=== PATIENT | female | born 1960 | race Caucasian/White ===

== ENCOUNTER → 2019-06-15 11:42 | Outpatient (BNVA) | payer MEDICAID, SELFPAY | PROVIDERS: Family Provider Nurse Practitioner; PCP Nurse Practitioner; Visit Provider Nurse Practitioner Family | DX: E78.2 Mixed hyperlipidemia (principal); E03.8 Other specified hypothyroidism; E07.9 Disorder of thyroid, unspecified; F41.9 Anxiety disorder, unspecified; J44.9 Chronic obstructive pulmonary disease, unspecified; K62.89 Other specified diseases of anus and rectum; M47.816 Spondylosis without myelopathy or radiculopathy, lumbar region; E55.9 Vitamin D deficiency, unspecified; K21.9 Gastro-esophageal reflux disease without esophagitis; N90.5 Atrophy of vulva; L02.224 Furuncle of groin; M51.36 Other intervertebral disc degeneration, lumbar region; F32.9 Major depressive disorder, single episode, unspecified; B37.3 Candidiasis of vulva and vagina | CPT/HCPCS: 80053; 80061; 84443; 85025 ==

== ENCOUNTER 2019-10-14 11:10 | Inpatient (IN) | payer MEDICAID, SELFPAY ==
[2019-10-14] VITALS (24 sets, daily range): BP systolic 85–150; BP diastolic 54–96; PULSE 76–125; RESP 14–34; TEMP 36.5–37; O2SAT 99–100; BMI 20.1
--- NOTE | 2019-10-14 11:12 | W.ED.GIBLEED ---
HPI - GI Bleed General: Stated complaint: GI BLEED Time Seen by Provider: 10/14/19 11:11 [facility] ED PFSH: Medical History Adult onset hypothyroidism Anxiety and depression Atrophy, vulva Temi vaginitis Caries involving multiple surfaces of tooth COPD (chronic obstructive pulmonary disease) Degenerative disc disease, lumbar GERD (gastroesophageal reflux disease) Lumbar spondylosis Mixed hyperlipidemia Rectal irritation Use of cane as ambulatory aid Vitamin D insufficiency Surgical History H/O: hysterectomy History of cholecystectomy Family History Other Cancer Diabetes Hypertension Social History Smoking and tobacco status: current every day smoker Second hand smoke exposure: Yes Smoking risk assessment/counseling performed?: Yes Alcohol intake: unknown Desire information about alcohol rehabilitation?: No Counseling given: No Desire information about substance/drug rehabilitation?: No Counseling given: No Adopted: No Caregiver/support person: No Lives independently: Yes Marital status: Single service: No Current occupational status: disabled History of recent travel: No Current gender identity: Female Discharge Plan Discharge Prescriptions: No Action nystatin 100,000 unit/gram cream 1 applic TOPICAL TID 30 Days Qty: 30 RF: 5 hydrocortisone [Anusol-HC] 2.5 % cream with perineal applicator 1 applic SD BID PRN (Reason: hemorrhoids) 30 Days Qty: 30 RF: 5 albuterol sulfate [ProAir HFA] 90 mcg/actuation HFA aerosol inhaler 2 inh INHALATION Q6H PRN (Reason: shortness of breath or wheezing) Qty: 6.7 RF: 5 aspirin [Adult Low Dose Aspirin] 81 mg tablet,delayed release (DR/EC) 81 mg PO DAILY 30 Days Qty: 30 RF: 5 atorvastatin [Lipitor] 20 mg tablet 20 mg PO DAILY 30 Days Qty: 30 RF: 5 Symbicort 80-4.5 mcg/actuation HFA aerosol inhaler 2 inh INHALATION BID 30 Days Qty: 6.9 RF: 5 celecoxib [Celebrex] 200 mg capsule 200 mg PO BID 30 Days Qty: 60 RF: 5 cholecalciferol (vitamin D3) 1,250 mcg (50,000 unit) tablet 50,000 unit PO .twice monthly 30 Days Qty: 2 RF: 5 estradiol [Estrace] 0.01 % (0.1 mg/gram) cream 1 gm VAGINAL .twice weekly 30 Days Qty: 42.5 RF: 5 gabapentin 600 mg tablet 600 mg PO TID 30 Days Qty: 90 RF: 5 famotidine 40 mg tablet 40 mg PO DAILY 30 Days Qty: 30 RF: 5 sertraline [Zoloft] 100 mg tablet 100 mg PO DAILY 30 Days Qty: 30 RF: 5 trazodone 100 mg tablet 100 mg PO DAILY 30 Days Qty: 30 RF: 5 tizanidine 2 mg capsule 2 mg PO TID PRN (Reason: muscle spasticity) 30 Days Qty: 90 RF: 5 chlorhexidine gluconate [Peridex] 0.12 % mouthwash 15 ml BUCCAL BID Qty: 1500 RF: 2 levothyroxine 50 mcg tablet 50 mcg PO DAILY Qty: 30 RF: 2 penicillin V potassium 500 mg tablet 500 mg PO BID Qty: 20 RF: 0 Coding Level of Care Code ED Clerical Adjudicator for Chg Erin
--- NOTE | 2019-10-14 11:17 | XRR_ITS ---
PROCEDURE INFORMATION: Exam: XR Chest, 1 View Exam date and time: 10/14/2019 12:30 PM Age: 59 years old Clinical indication: Device placement; Other: Et and og placement; Additional info: AMS TECHNIQUE: Imaging protocol: XR of the chest Views: 1 view. COMPARISON: CR Chest 1 [place] [id number] 07/03/2018 3:49 PM FINDINGS: Tubes, catheters and devices: Endotracheal and feeding tubes. The endotracheal tube terminates 4.1 cm above the bimal. The feeding tube courses into the proximal stomach with distal tip not visualized. Lungs: Hyperinflation , interstitial prominence, and mild airspace disease. Pleural space: No significant pleural effusion. Heart/Mediastinum: No cardiomegaly. Diaphragm: Asymmetric elevation of the right hemidiaphragm. Bones/joints: Unremarkable. Soft tissues: Rightward rotation of the chest. XR/XR chest 1V portable [id number] IMPRESSION: 1. Endotracheal and feeding tubes. The endotracheal tube terminates 4.1 cm above the bimal. The feeding tube courses into the proximal stomach with distal tip not visualized. 2. Additional findings as described above.
--- NOTE | 2019-10-14 11:18 | ECG_ITS ---
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 Measurements Intervals [place] Rate: 124 P: 75 MA: 136 QRS: 64 QRSD: 82 T: 72 QT: 336 QTc: 484 Interpretive Statements SINUS TACHYCARDIA NONSPECIFIC ST & T-WAVE ABNORMALITY ABNORMAL RHYTHM ECG INTERPRETATION BASED ON A DEFAULT AGE OF 40 YEARS Compared to ECG 07/03/2018 16:03:26 T-wave abnormality now present Sinus rhythm no longer present Electronically Signed On 10-14-2019 21:07:15 CDT by Olegario Lagos M.D. [id number]
--- NOTE | 2019-10-14 11:24 | CT_ITS ---
WS: [id number] CT HEAD NONCONTRAST HISTORY: AMS TECHNIQUE: Contiguous axial imaging performed through the brain in 2.5 mm imaging. Bone and soft tiss ue windows. Sagittal and coronal reformats reviewed. All CT scans at [facility] use at le ast one of these dose optimization techniques: automated exposure control; mA and/or kV adjustment pe r patient size (includes targeted exams where dose is matched to clinical indication); or iterative r econstruction. DLP: 742.09 mGy.cm COMPARISON: 09/06/2016 No acute intracranial hemorrhage, midline shift or mass effect. Significant atrophy bilaterally. 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 Enc ephalomalacia at the areas of the prior infarcts. No new area of encephalomalacia. There is a small a mount of air at the skull base near the sella turcica of uncertain etiology. This may be intravenous air during injection or IV placement. Ventricles: Normal size with no hydrocephalus. Paranasal sinuses: Small mucous retention cyst LEFT maxillary sinus. Mastoid air cells: Well pneumatized. Calvarium and scalp: Skull is intact with no soft tissue edema or swelling. CT/CT head wo con* [id number] IMPRESSION: 1. 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 2. No acute infarct or blood. 3. Several foci of air near the skull base/sella turcica of uncertain etiology . No skull fractures are identified. This may be due to IV insertion with the c ontrast injection.
--- NOTE | 2019-10-14 11:36 | ED_ITS ---
HPI - Altered Mental Status General: Chief Complaint: Altered Mental Status Stated Complaint: GI BLEED Time Seen by Provider: 10/14/19 11:11 History of Present Illness: HPI narrative: This patient is a 59-year-old female brought in by ambulance. Apparently she called the ambulance for shortness of breath and when they arrived they found her poorly responsive, with bloody emesis and black stool all over her. She was transported to the emergency department with blood pressures in the 70s to 80s systolic. She is awake but not responsive to any stimuli. She is staring, blinking, no gaze deviation. She is pale and covered in feces and emesis. No further history is available. MD complaint: altered mental status and decreased responsiveness Onset (ago): unknown Severity: severe Context: unknown Review of Systems General: Reports: ROS unobtainable due to mental status PFSH ED PFSH: Medical History Adult onset hypothyroidism Anxiety and depression Atrophy, vulva Temi vaginitis Caries involving multiple surfaces of tooth COPD (chronic obstructive pulmonary disease) Degenerative disc disease, lumbar GERD (gastroesophageal reflux disease) Lumbar spondylosis Mixed hyperlipidemia Rectal irritation Use of cane as ambulatory aid Vitamin D insufficiency Surgical History H/O: hysterectomy History of cholecystectomy Family History Other Cancer Diabetes Hypertension Social History Smoking and tobacco status: current every day smoker Second hand smoke exposure: Yes Smoking risk assessment/counseling performed?: Yes Alcohol intake: current Alcohol intake frequency: 0-2 Drinks per Day Alcohol ty pe: hard liquor Desire information about alcohol rehabilitation?: No Counseling given: No Substance/Drug Use: unknown Desire information about substance/drug rehabilitation?: No Counseling given: No Adopted: No Caregiver/support person: No Lives independently: Yes Marital status: Single service: No Current occupational status: disabled History of recent travel: No Current gender identity: Female Physical Exam Const: GENERAL APPEARANCE: frail appearing ORIENTATION/CONSCIOUSNESS: Yes patient obtunded HENMT: HEAD & SCALP: normal to inspection FACE & SINUS: normal facial exam Eye: GENERAL EYE: appearance normal, both eyes and all related structures Neck/C-Spine: COMMON NORMALS: supple, no meningeal signs and no JVD Chest: COMMONS NORMALS: normal inspection of the chest Resp: COMMON NORMALS: normal respiratory effort, No use of accessory muscles and clear to auscultation bilaterally AUSCULTATION: clear to auscultation bilaterally Cardio: COMMON NORMALS: no JVD, regular rate, regular rhythm and No murmurs present (Cardio) RATE: regular rate RHYTHM: regular rhythm GI: COMMON NORMALS: Normal to inspection, nondistended, normoactive bowel sounds present, Soft to palpation and non-tender INSPECTION: Yes normal to in spection AUSCULTATION: Yes normoactive bowel sounds PALPATION: Yes Soft to palpation Back/Pelvis: COMMON NORMALS: thoracic and lumbar spine normal to inspection Extremity: COMMON NORMALS: normal to inspection Neuro: COMMON NORMALS: moves all extremities, no focal motor deficits and no sensory deficits noted MENINGEAL SIGNS: Yes no meningeal signs Psych: ACTIVITY/MOTOR BEHAVIOR: Yes other (Catatonic) Skin: COMMON NORMALS: no rashes or lesions noted GENERAL SKIN EXAM: no rashes or lesions noted and other (Pale, covered in feces and emesis) Procedures Central Line Placement Right IJ: Time Out Performed: Yes Patient Placed on Monitor/Pulse Ox: Yes MD Prep: mask, gown and gloves Central Line Prep: Chlorhexidine scrub Ultrasound Used for Placement: Yes Central Line Lumen Inserted: triple Post Procedure: sutured in place (kit was missing part of the clip and so the catheter was wrapped with suture and tied off), all ports aspirated, flushed, capped and sterile dressing applied Post Procedure X-Ray: tip of catheter in good position and no pneumothorax seen Patient Tolerated Procedure: well Complications: none Intubation Time out performed: Yes sedative: Etomidate paralytic: Succinylcholine Laryngoscope: fiber optic video scope ET Tube Size: 7.5 ET Tube Uncuffed: No Tube Secured Depth (cm): 23 Tube Secured Location: teeth Tube Placement Confirmation: visualized tube passing through cords, equal breath sounds bilaterally, no breath sounds over epigastrium and confirmation by capnometry Patient Tolerated Procedure: well Intubation Complications: none Course ED course: The decision was made to intubate the patient based on concern for ability to protect her airway should she have further emesis. Given her presentation I suspect she is likely to have more emesis. She did wake up a little bit and was able to tell us her first name. She did not know where she was. She complained of a headache and leg pain. She was intubated without event. ABG showed a low hemoglobin. The rest of her labs are still pending but 2 units of typed and crossed blood are pending. We have no ICU beds here and she is going require transfer to another facility. Reevaluation(s): Reevaluation #1: I reviewed the patient's records and there is some concern for seizure. She was loaded with Keppra. Blood is being transfused currently. NG tube was placed after the intubation and is draining black liquid. She has had about 200 mL's out over the first hour. Ramos was placed with clear urine. She is currently in CT getting CTs of her head and abdomen pelvis. Once those are available I will get her transferred to another facility for ICU admission. She also has been covered with Rocephin and is on a propofol and fentanyl drip for sedation. Consultations: Consultation #1: Kristian. Would like me to check with Dr. Kelly before excepting the patient here as if she has esophageal varices she will need to be transferred. The CT scanner had some technical difficulties during her scan which will delay the ability to either review the images or get a report for some time. I spoke with Dr. Kelly and he also wants to wait until the CT is back to make sure she does not have varices. Vital Signs: Vital signs: Vital Signs Temperature 98.4 F 10/19/19 15:01 Pulse Rate 96 10/19/19 15:01 Respiratory Rate 18 10/19/19 15:01 Blood Pressure 98/62 10/19/19 15:01 Pulse Oximetry 95 10/19/19 15:01 MDM - Altered Mental Status Medical Records: Attestation: I reviewed the patient's medical records. Medical records narrative: Patient had a similar presentation about 4 years ago. At that time she was evaluated by neurology for possible seizure and was started on Keppra but it was also thought that the symptoms might simply be encephalopathy. It is not clear whether she really has a seizure history or not but I did go ahead and load her with Keppra. I also did not see any evidence of liver disease in the prior record. She did have renal failure on that admission 4 years ago but in June of this year had normal creatinine. Lab Data: Labs: Lab Results 10/14/19 10/14/19 10/14/19 Range/Units 11:20 11:35 11:45 WBC 16.8 H (4.0-10.0) 10^3/ uL RBC 1.87 L (4.1-5.3) 10^6/u L Hgb 6.1 L* (11.5-15.3) g/dL Hct 19.4 L* (37.0-47.0) % MCV 103.7 H (81-99) fL MCH 32.6 (28.0-34.0) pg MCHC 31.4 (30.0-36.0) g/dL RDW 13.3 (12.1-15.1) % Plt Count 405 H (130-400) 10^3/c mm MPV 10.1 (7.4-10.4) fL Neut % (Auto) 84.0 % Lymph % (Auto) 11.8 % [place] % (Auto) 3.6 % Eos % (Auto) 0.0 % Baso % (Auto) 0.1 % Neut # (Auto) 14.16 H (1.8-7.7) 10^3/u L Lymph # (Auto) 2.0 (0.8-4.8) 10^3/u L [place] # (Auto) 0.6 (0.2-0.9) 10^3/u L Eos # (Auto) 0.0 (0.0-0.8) 10^3/u L Baso # (Auto) 0.0 (0.0-0.1) 10^3/u L Nucleated RBC % (a uto) 0 % Nucleated RBCs # 0.0 /100WBC PT (12.1-14.9) SECO NDS INR (0.8-1.2) Specimen Type Arterial Sample Site Radial, right ABG pH 7.43 (7.35-7.45) ABG pCO2 26.7 L (35-45) mmHg ABG pO2 79.7 L (80.0-100.0) mmH g ABG HCO3 17.6 L (22-26) mmol/L ABG Base Excess -6.1 L (-2.0-2.0) mmol/ L Tra Test Pos Hematocrit 20.9 L (37-47) % O2 Delivery Device Room air FiO2 21.0 % Metal Base Blocker ID glc Blood Gas Notified Time 1145 Sodium (136-145) mmol/L Potassium (3.5-5.1) mmol/L Chloride (98-107) mmol/L Carbon Dioxide (22-29) mmol/L Anion Gap (5-19) BUN (6-20) mg/dL Creatinine (0.5-0.9) mg/dL GFR Calculation (90-130) mL/min Glucose (65-115) mg/dL POC Glucose 217 (70-110) mg/dL Calculated Osmolal ity (285-295) mOsm/k g Lactic Acid (0.5-2.2) mmol/L Lactic Acid (Sepsi s) (0.5-2.2) mmol/L Calcium (8.5-10.5) mg/dL Phosphorus (2.5-4.5) mg/dL Magnesium (1.7-2.3) mg/dL Iron (37-145) ug/dL TIBC mcg/dl % Saturation (20-50) % Unsat Iron Binding (112-347) ug/dL Total Bilirubin (0.15-1.2) mg/dL AST (0-32) U/L ALT (0-33) U/L Alkaline Phosphata se (35-105) IU/L Ammonia (11-51) umol/L Creatine Kinase (26-192) U/L Troponin T Baselin e (0-10) ng/L Troponin T 120 Min iqugmiut (0-10) ng/L Delta Troponin T (0-10) ABS# Total Protein (6.6-8.7) g/dL Albumin (3.5-5.2) g/dL Globulin (1.3-4.6) g/dL Lipase (13-60) U/L Vitamin B12 (232-1245) pg/mL Folate (4.8-37.3) ng/mL Procalcitonin (0-0.5) ng/mL TSH (0.27-4.20) uIU/ mL Prolactin (4.8-23.3) ng/mL Urine Color (Yellow) Urine Appearance (CLEAR) Urine pH (5-7) Ur Specific Gravit y (1.005-1.030) Urine Protein (Negative) Urine Glucose (UA) (Normal) Urine Ketones (Negative) Urine Blood (Negative) Urine Nitrate (Negative) Urine Bilirubin (NEGATIVE) Urine Urobilinogen (Negative) mg/dL Ur Leukocyte Roslyn ase (Negative) Salicylates (3-10) mg/dL Urine Opiates Scre en (Negative) ng/mL Acetaminophen (10-30) ug/mL Ur Barbiturates Sc reen (Negative) ng/mL Phenytoin (10-20) ug/mL Valproic Acid (50-100) ug/mL Carbamazepine (4.0-12.0) ug/mL Ur Phencyclidine S crn (Negative) ng/mL Ur Amphetamines Sc reen (Negative) ng/mL U Benzodiazepines Scrn (Negative) ng/mL [employer] (0.6-1.2) mmol/L Urine Cocaine Scre en (Negative) ng/mL U Marijuana (THC) Screen (Negative) ng/mL Ethyl Alcohol (0-10) mg/dL Hepatitis A IgM Ab (Nonreactive) Hep Bs Antigen (Nonreactive) Hep Bs Antibody (0-8.5) Hep B Core Total A b (Nonreactive) Hepatitis C Antibo dy (Nonreactive) HIV 1&2 Ab & HIV 1 Ag (Non-Reactiv) HIV 1&2 Antibody (Non-Reactiv) SARS-CoV-2 Ag (Rap id) (Negative) Blood Type Rho(D) Type Antibody Screen Crossmatch 10/14/19 10/14/19 10/14/19 Range/Units 11:45 11:45 11:45 WBC (4.0-10.0) 10^3/ uL RBC (4.1-5.3) 10^6/u L Hgb (11.5-15.3) g/dL Hct (37.0-47.0) % MCV (81-99) fL MCH (28.0-34.0) pg MCHC (30.0-36.0) g/dL RDW (12.1-15.1) % Plt Count (130-400) 10^3/c mm MPV (7.4-10.4) fL Neut % (Auto) % Lymph % (Auto) % [place] % (Auto) % Eos % (Auto) % Baso % (Auto) % Neut # (Auto) (1.8-7.7) 10^3/u L Lymph # (Auto) (0.8-4.8) 10^3/u L [place] # (Auto) (0.2-0.9) 10^3/u L Eos # (Auto) (0.0-0.8) 10^3/u L Baso # (Auto) (0.0-0.1) 10^3/u L Nucleated RBC % (a uto) % Nucleated RBCs # /100WBC PT (12.1-14.9) SECO NDS INR (0.8-1.2) Specimen Type Sample Site ABG pH (7.35-7.45) ABG pCO2 (35-45) mmHg ABG pO2 (80.0-100.0) mmH g ABG HCO3 (22-26) mmol/L ABG Base Excess (-2.0-2.0) mmol/ L Tra Test Hematocrit (37-47) % O2 Delivery Device FiO2 % Metal Base Blocker ID Blood Gas Notified Time Sodium 142 (136-145) mmol/L Potassium 3.8 (3.5-5.1) mmol/L Chloride 108 H (98-107) mmol/L Carbon Dioxide 18 L (22-29) mmol/L Anion Gap 19.8 H (5-19) BUN 93 H* D (6-20) mg/dL Creatinine 1.4 H (0.5-0.9) mg/dL GFR Calculation 38.8 L (90-130) mL/min Glucose 204 H (65-115) mg/dL POC Glucose (70-110) mg/dL Calculated Osmolal ity 300 H (285-295) mOsm/k g Lactic Acid 4.7 H* (0.5-2.2) mmol/L Lactic Acid (Sepsi s) (0.5-2.2) mmol/L Calcium 8.6 (8.5-10.5) mg/dL Phosphorus (2.5-4.5) mg/dL Magnesium 2.2 (1.7-2.3) mg/dL Iron (37-145) ug/dL TIBC mcg/dl % Saturation (20-50) % Unsat Iron Binding (112-347) ug/dL Total Bilirubin 0.2 (0.15-1.2) mg/dL AST 10 (0-32) U/L ALT 9 (0-33) U/L Alkaline Phosphata se 48 (35-105) IU/L Ammonia 45 (11-51) umol/L Creatine Kinase 61 (26-192) U/L Troponin T Baselin e (0-10) ng/L Troponin T 120 Min iqugmiut (0-10) ng/L Delta Troponin T (0-10) ABS# Total Protein 6.6 (6.6-8.7) g/dL Albumin 3.7 (3.5-5.2) g/dL Globulin 2.9 (1.3-4.6) g/dL Lipase 28 (13-60) U/L Vitamin B12 (232-1245) pg/mL Folate (4.8-37.3) ng/mL Procalcitonin 0.13 (0-0.5) ng/mL TSH 0.32 (0.27-4.20) uIU/ mL Prolactin (4.8-23.3) ng/mL Urine Color (Yellow) Urine Appearance (CLEAR) Urine pH (5-7) Ur Specific Gravit y (1.005-1.030) Urine Protein (Negative) Urine Glucose (UA) (Normal) Urine Ketones (Negative) Urine Blood (Negative) Urine Nitrate (Negative) Urine Bilirubin (NEGATIVE) Urine Urobilinogen (Negative) mg/dL Ur Leukocyte Roslyn ase (Negative) Salicylates < 0.3 L (3-10) mg/dL Urine Opiates Scre en (Negative) ng/mL Acetaminophen < 5.0 L (10-30) ug/mL Ur Barbiturates Sc reen (Negative) ng/mL Phenytoin (10-20) ug/mL Valproic Acid 2.8 L (50-100) ug/mL Carbamazepine (4.0-12.0) ug/mL Ur Phencyclidine S crn (Negative) ng/mL Ur Amphetamines Sc reen (Negative) ng/mL U Benzodiazepines Scrn (Negative) ng/mL [employer] (0.6-1.2) mmol/L Urine Cocaine Scre en (Negative) ng/mL U Marijuana (THC) Screen (Negative) ng/mL Ethyl Alcohol < 10 (0-10) mg/dL Hepatitis A IgM Ab (Nonreactive) Hep Bs Antigen (Nonreactive) Hep Bs Antibody (0-8.5) Hep B Core Total A b (Nonreactive) Hepatitis C Antibo dy (Nonreactive) HIV 1&2 Ab & HIV 1 Ag (Non-Reactiv) HIV 1&2 Antibody (Non-Reactiv) SARS-CoV-2 Ag (Rap id) (Negative) Blood Type Rho(D) Type Antibody Screen Crossmatch 10/14/19 10/14/19 10/14/19 Range/Units 11:45 11:45 11:45 WBC (4.0-10.0) 10^3/ uL RBC (4.1-5.3) 10^6/u L Hgb (11.5-15.3) g/dL Hct (37.0-47.0) % MCV (81-99) fL MCH (28.0-34.0) pg MCHC (30.0-36.0) g/dL RDW (12.1-15.1) % Plt Count (130-400) 10^3/c mm MPV (7.4-10.4) fL Neut % (Auto) % Lymph % (Auto) % [place] % (Auto) % Eos % (Auto) % Baso % (Auto) % Neut # (Auto) (1.8-7.7) 10^3/u L Lymph # (Auto) (0.8-4.8) 10^3/u L [place] # (Auto) (0.2-0.9) 10^3/u L Eos # (Auto) (0.0-0.8) 10^3/u L Baso # (Auto) (0.0-0.1) 10^3/u L Nucleated RBC % (a uto) % Nucleated RBCs # /100WBC PT 13.00 (12.1-14.9) SECO NDS INR 0.95 (0.8-1.2) Specimen Type Sample Site ABG pH (7.35-7.45) ABG pCO2 (35-45) mmHg ABG pO2 (80.0-100.0) mmH g ABG HCO3 (22-26) mmol/L ABG Base Excess (-2.0-2.0) mmol/ L Tra Test Hematocrit (37-47) % O2 Delivery Device FiO2 % Metal Base Blocker ID Blood Gas Notified Time Sodium (136-145) mmol/L Potassium (3.5-5.1) mmol/L Chloride (98-107) mmol/L Carbon Dioxide (22-29) mmol/L Anion Gap (5-19) BUN (6-20) mg/dL Creatinine (0.5-0.9) mg/dL GFR Calculation (90-130) mL/min Glucose (65-115) mg/dL POC Glucose (70-110) mg/dL Calculated Osmolal ity (285-295) mOsm/k g Lactic Acid (0.5-2.2) mmol/L Lactic Acid (Sepsi s) (0.5-2.2) mmol/L Calcium (8.5-10.5) mg/dL Phosphorus (2.5-4.5) mg/dL Magnesium (1.7-2.3) mg/dL Iron (37-145) ug/dL TIBC mcg/dl % Saturation (20-50) % Unsat Iron Binding (112-347) ug/dL Total Bilirubin (0.15-1.2) mg/dL AST (0-32) U/L ALT (0-33) U/L Alkaline Phosphata se (35-105) IU/L Ammonia (11-51) umol/L Creatine Kinase (26-192) U/L Troponin T Baselin e 118 H* (0-10) ng/L Troponin T 120 Min iqugmiut (0-10) ng/L Delta Troponin T (0-10) ABS# Total Protein (6.6-8.7) g/dL Albumin (3.5-5.2) g/dL Globulin (1.3-4.6) g/dL Lipase (13-60) U/L Vitamin B12 (232-1245) pg/mL Folate (4.8-37.3) ng/mL Procalcitonin (0-0.5) ng/mL TSH (0.27-4.20) uIU/ mL Prolactin (4.8-23.3) ng/mL Urine Color (Yellow) Urine Appearance (CLEAR) Urine pH (5-7) Ur Specific Gravit y (1.005-1.030) Urine Protein (Negative) Urine Glucose (UA) (Normal) Urine Ketones (Negative) Urine Blood (Negative) Urine Nitrate (Negative) Urine Bilirubin (NEGATIVE) Urine Urobilinogen (Negative) mg/dL Ur Leukocyte Roslyn ase (Negative) Salicylates (3-10) mg/dL Urine Opiates Scre en (Negative) ng/mL Acetaminophen (10-30) ug/mL Ur Barbiturates Sc reen (Negative) ng/mL Phenytoin (10-20) ug/mL Valproic Acid (50-100) ug/mL Carbamazepine (4.0-12.0) ug/mL Ur Phencyclidine S crn (Negative) ng/mL Ur Amphetamines Sc reen (Negative) ng/mL U Benzodiazepines Scrn (Negative) ng/mL [employer] (0.6-1.2) mmol/L Urine Cocaine Scre en (Negative) ng/mL U Marijuana (THC) Screen (Negative) ng/mL Ethyl Alcohol (0-10) mg/dL Hepatitis A IgM Ab (Nonreactive) Hep Bs Antigen (Nonreactive) Hep Bs Antibody (0-8.5) Hep B Core Total A b (Nonreactive) Hepatitis C Antibo dy (Nonreactive) HIV 1&2 Ab & HIV 1 Ag (Non-Reactiv) HIV 1&2 Antibody (Non-Reactiv) SARS-CoV-2 Ag (Rap id) (Negative) Blood Type A Positive Rho(D) Type Positive Antibody Screen Negative Crossmatch See Detail 10/14/19 10/14/19 10/14/19 Range/Units 11:45 11:45 11:45 WBC (4.0-10.0) 10^3/ uL RBC (4.1-5.3) 10^6/u L Hgb (11.5-15.3) g/dL Hct (37.0-47.0) % MCV (81-99) fL MCH (28.0-34.0) pg MCHC (30.0-36.0) g/dL RDW (12.1-15.1) % Plt Count (130-400) 10^3/c mm MPV (7.4-10.4) fL Neut % (Auto) % Lymph % (Auto) % [place] % (Auto) % Eos % (Auto) % Baso % (Auto) % Neut # (Auto) (1.8-7.7) 10^3/u L Lymph # (Auto) (0.8-4.8) 10^3/u L [place] # (Auto) (0.2-0.9) 10^3/u L Eos # (Auto) (0.0-0.8) 10^3/u L Baso # (Auto) (0.0-0.1) 10^3/u L Nucleated RBC % (a uto) % Nucleated RBCs # /100WBC PT (12.1-14.9) SECO NDS INR (0.8-1.2) Specimen Type Sample Site ABG pH (7.35-7.45) ABG pCO2 (35-45) mmHg ABG pO2 (80.0-100.0) mmH g ABG HCO3 (22-26) mmol/L ABG Base Excess (-2.0-2.0) mmol/ L Tra Test Hematocrit (37-47) % O2 Delivery Device FiO2 % Metal Base Blocker ID Blood Gas Notified Time Sodium (136-145) mmol/L Potassium (3.5-5.1) mmol/L Chloride (98-107) mmol/L Carbon Dioxide (22-29) mmol/L Anion Gap (5-19) BUN (6-20) mg/dL Creatinine (0.5-0.9) mg/dL GFR Calculation (90-130) mL/min Glucose (65-115) mg/dL POC Glucose (70-110) mg/dL Calculated Osmolal ity (285-295) mOsm/k g Lactic Acid (0.5-2.2) mmol/L Lactic Acid (Sepsi s) (0.5-2.2) mmol/L Calcium (8.5-10.5) mg/dL Phosphorus 4.3 (2.5-4.5) mg/dL Magnesium 2.2 (1.7-2.3) mg/dL Iron 118 (37-145) ug/dL TIBC 264 mcg/dl % Saturation 44.6 (20-50) % Unsat Iron Binding 146 (112-347) ug/dL Total Bilirubin (0.15-1.2) mg/dL AST (0-32) U/L ALT (0-33) U/L Alkaline Phosphata se (35-105) IU/L Ammonia (11-51) umol/L Creatine Kinase (26-192) U/L Troponin T Baselin e (0-10) ng/L Troponin T 120 Min iqug[place]ut (0-10) ng/L Delta Troponin T (0-10) ABS# Total Protein (6.6-8.7) g/dL Albumin (3.5-5.2) g/dL Globulin (1.3-4.6) g/dL Lipase (13-60) U/L Vitamin B12 171 L (232-1245) pg/mL Folate (4.8-37.3) ng/mL Procalcitonin 0.13 (0-0.5) ng/mL TSH 0.33 (0.27-4.20) uIU/ mL Prolactin (4.8-23.3) ng/mL Urine Color (Yellow) Urine Appearance (CLEAR) Urine pH (5-7) Ur Specific Gravit y (1.005-1.030) Urine Protein (Negative) Urine Glucose (UA) (Normal) Urine Ketones (Negative) Urine Blood (Negative) Urine Nitrate (Negative) Urine Bilirubin (NEGATIVE) Urine Urobilinogen (Negative) mg/dL Ur Leukocyte Roslyn ase (Negative) Salicylates (3-10) mg/dL Urine Opiates Scre en (Negative) ng/mL Acetaminophen (10-30) ug/mL Ur Barbiturates Sc reen (Negative) ng/mL Phenytoin (10-20) ug/mL Valproic Acid (50-100) ug/mL Carbamazepine (4.0-12.0) ug/mL Ur Phencyclidine S crn (Negative) ng/mL Ur Amphetamines Sc reen (Negative) ng/mL U Benzodiazepines Scrn (Negative) ng/mL [employer] (0.6-1.2) mmol/L Urine Cocaine Scre en (Negative) ng/mL U Marijuana (THC) Screen (Negative) ng/mL Ethyl Alcohol (0-10) mg/dL Hepatitis A IgM Ab (Nonreactive) Hep Bs Antigen (Nonreactive) Hep Bs Antibody (0-8.5) Hep B Core Total A b (Nonreactive) Hepatitis C Antibo dy (Nonreactive) HIV 1&2 Ab & HIV 1 Ag Non-reactive (Non-Reactiv) HIV 1&2 Antibody Non-reactive (Non-Reactiv) SARS-CoV-2 Ag (Rap id) Negative (Negative) Blood Type Rho(D) Type Antibody Screen Crossmatch 10/14/19 10/14/19 10/14/19 Range/Units 11:45 12:03 12:03 WBC (4.0-10.0) 10^3/ uL RBC (4.1-5.3) 10^6/u L Hgb (11.5-15.3) g/dL Hct (37.0-47.0) % MCV (81-99) fL MCH (28.0-34.0) pg MCHC (30.0-36.0) g/dL RDW (12.1-15.1) % Plt Count (130-400) 10^3/c mm MPV (7.4-10.4) fL Neut % (Auto) % Lymph % (Auto) % [place] % (Auto) % Eos % (Auto) % Baso % (Auto) % Neut # (Auto) (1.8-7.7) 10^3/u L Lymph # (Auto) (0.8-4.8) 10^3/u L [place] # (Auto) (0.2-0.9) 10^3/u L Eos # (Auto) (0.0-0.8) 10^3/u L Baso # (Auto) (0.0-0.1) 10^3/u L Nucleated RBC % (a uto) % Nucleated RBCs # /100WBC PT (12.1-14.9) SECO NDS INR (0.8-1.2) Specimen Type Sample Site ABG pH (7.35-7.45) ABG pCO2 (35-45) mmHg ABG pO2 (80.0-100.0) mmH g ABG HCO3 (22-26) mmol/L ABG Base Excess (-2.0-2.0) mmol/ L Tra Test Hematocrit (37-47) % O2 Delivery Device FiO2 % Metal [employer] Blocker ID Blood Gas Notified Time Sodium (136-145) mmol/L Potassium (3.5-5.1) mmol/L Chloride (98-107) mmol/L Carbon Dioxide (22-29) mmol/L Anion Gap (5-19) BUN (6-20) mg/dL Creatinine (0.5-0.9) mg/dL GFR Calculation (90-130) mL/min Glucose (65-115) mg/dL POC Glucose (70-110) mg/dL Calculated Osmolal ity (285-295) mOsm/k g Lactic Acid (0.5-2.2) mmol/L Lactic Acid (Sepsi s) (0.5-2.2) mmol/L Calcium (8.5-10.5) mg/dL Phosphorus (2.5-4.5) mg/dL Magnesium (1.7-2.3) mg/dL Iron (37-145) ug/dL TIBC mcg/dl % Saturation (20-50) % Unsat Iron Binding (112-347) ug/dL Total Bilirubin (0.15-1.2) mg/dL AST (0-32) U/L ALT (0-33) U/L Alkaline Phosphata se (35-105) IU/L Ammonia (11-51) umol/L Creatine Kinase (26-192) U/L Troponin T Baselin e (0-10) ng/L Troponin T 120 Min iqug[place]ut (0-10) ng/L Delta Troponin T (0-10) ABS# Total Protein (6.6-8.7) g/dL Albumin (3.5-5.2) g/dL Globulin (1.3-4.6) g/dL Lipase (13-60) U/L Vitamin B12 (232-1245) pg/mL Folate (4.8-37.3) ng/mL Procalcitonin (0-0.5) ng/mL TSH (0.27-4.20) uIU/ mL Prolactin 7.86 (4.8-23.3) ng/mL Urine Color Yellow (Yellow) Urine Appearance Clear (CLEAR) Urine pH 5 (5-7) Ur Specific Gravit y 1.015 (1.005-1.030) Urine Protein Neg (Negative) Urine Glucose (UA) Norm (Normal) Urine Ketones Negative (Negative) Urine Blood Neg (Negative) Urine Nitrate Negative (Negative) Urine Bilirubin Neg (NEGATIVE) Urine Urobilinogen Neg (Negative) mg/dL Ur Leukocyte [place] ase Negative (Negative) Salicylates (3-10) mg/dL Urine Opiates Scre en Negative (Negative) ng/mL Acetaminophen (10-30) ug/mL Ur Barbiturates Sc reen Negative (Negative) ng/mL Phenytoin (10-20) ug/mL Valproic Acid (50-100) ug/mL Carbamazepine (4.0-12.0) ug/mL Ur Phencyclidine S crn Negative (Negative) ng/mL Ur Amphetamines Sc reen Negative (Negative) ng/mL U Benzodiazepines Scrn Negative (Negative) ng/mL [employer] (0.6-1.2) mmol/L Urine Cocaine Scre en Negative (Negative) ng/mL U Marijuana (THC) Screen Negative (Negative) ng/mL Ethyl Alcohol (0-10) mg/dL Hepatitis A IgM Ab (Nonreactive) Hep Bs Antigen (Nonreactive) Hep Bs Antibody (0-8.5) Hep B Core Total A b (Nonreactive) Hepatitis C Antibo dy (Nonreactive) HIV 1&2 Ab & HIV 1 Ag (Non-Reactiv) HIV 1&2 Antibody (Non-Reactiv) SARS-CoV-2 Ag (Rap id) (Negative) Blood Type Rho(D) Type Antibody Screen Crossmatch 10/14/19 10/14/19 10/14/19 Range/Units 12:05 12:05 12:05 WBC (4.0-10.0) 10^3/ uL RBC (4.1-5.3) 10^6/u L Hgb (11.5-15.3) g/dL Hct (37.0-47.0) % MCV (81-99) fL MCH (28.0-34.0) pg MCHC (30.0-36.0) g/dL RDW (12.1-15.1) % Plt Count (130-400) 10^3/c mm MPV (7.4-10.4) fL Neut % (Auto) % Lymph % (Auto) % [place] % (Auto) % Eos % (Auto) % Baso % (Auto) % Neut # (Auto) (1.8-7.7) 10^3/u L Lymph # (Auto) (0.8-4.8) 10^3/u L [place] # (Auto) (0.2-0.9) 10^3/u L Eos # (Auto) (0.0-0.8) 10^3/u L Baso # (Auto) (0.0-0.1) 10^3/u L Nucleated RBC % (a uto) % Nucleated RBCs # /100WBC PT (12.1-14.9) SECO NDS INR (0.8-1.2) Specimen Type Sample Site ABG pH (7.35-7.45) ABG pCO2 (35-45) mmHg ABG pO2 (80.0-100.0) mmH g ABG HCO3 (22-26) mmol/L ABG Base Excess (-2.0-2.0) mmol/ L Tra Test Hematocrit (37-47) % O2 Delivery Device FiO2 % Metal Base Blocker ID Blood Gas Notified Time Sodium (136-145) mmol/L Potassium (3.5-5.1) mmol/L Chloride (98-107) mmol/L Carbon Dioxide (22-29) mmol/L Anion Gap (5-19) BUN (6-20) mg/dL Creatinine (0.5-0.9) mg/dL GFR Calculation (90-130) mL/min Glucose (65-115) mg/dL POC Glucose (70-110) mg/dL Calculated Osmolal ity (285-295) mOsm/k g Lactic Acid (0.5-2.2) mmol/L Lactic Acid (Sepsi s) (0.5-2.2) mmol/L Calcium (8.5-10.5) mg/dL Phosphorus (2.5-4.5) mg/dL Magnesium (1.7-2.3) mg/dL Iron (37-145) ug/dL TIBC mcg/dl % Saturation (20-50) % Unsat Iron Binding (112-347) ug/dL Total Bilirubin (0.15-1.2) mg/dL AST (0-32) U/L ALT (0-33) U/L Alkaline Phosphata se (35-105) IU/L Ammonia (11-51) umol/L Creatine Kinase (26-192) U/L Troponin T Baselin e (0-10) ng/L Troponin T 120 Min iqugmiut (0-10) ng/L Delta Troponin T (0-10) ABS# Total Protein (6.6-8.7) g/dL Albumin (3.5-5.2) g/dL Globulin (1.3-4.6) g/dL Lipase (13-60) U/L Vitamin B12 (232-1245) pg/mL Folate > 20.0 (4.8-37.3) ng/mL Procalcitonin (0-0.5) ng/mL TSH (0.27-4.20) uIU/ mL Prolactin (4.8-23.3) ng/mL Urine Color (Yellow) Urine Appearance (CLEAR) Urine pH (5-7) Ur Specific Gravit y (1.005-1.030) Urine Protein (Negative) Urine Glucose (UA) (Normal) Urine Ketones (Negative) Urine Blood (Negative) Urine Nitrate (Negative) Urine Bilirubin (NEGATIVE) Urine Urobilinogen (Negative) mg/dL Ur Leukocyte Roslyn ase (Negative) Salicylates (3-10) mg/dL Urine Opiates Scre en (Negative) ng/mL Acetaminophen (10-30) ug/mL Ur Barbiturates Sc reen (Negative) ng/mL Phenytoin 0.8 L (10-20) ug/mL Valproic Acid (50-100) ug/mL Carbamazepine 2.0 L (4.0-12.0) ug/mL Ur Phencyclidine S crn (Negative) ng/mL Ur Amphetamines Sc reen (Negative) ng/mL U Benzodiazepines Scrn (Negative) ng/mL [employer] 0.1 L (0.6-1.2) mmol/L Urine Cocaine Scre en (Negative) ng/mL U Marijuana (THC) Screen (Negative) ng/mL Ethyl Alcohol (0-10) mg/dL Hepatitis A IgM Ab Non-reactive (Nonreactive) Hep Bs Antigen Non-reactive (Nonreactive) Hep Bs Antibody 7.0 (0-8.5) Hep B Core Total A b Reactive H (Nonreactive) Hepatitis C Antibo dy Non-reactive (Nonreactive) HIV 1&2 Ab & HIV 1 Ag (Non-Reactiv) HIV 1&2 Antibody (Non-Reactiv) SARS-CoV-2 Ag (Rap id) (Negative) Blood Type Rho(D) Type Antibody Screen Crossmatch 10/14/19 10/14/19 10/14/19 Range/Units 12:05 14:28 14:52 WBC (4.0-10.0) 10^3/ uL RBC (4.1-5.3) 10^6/u L Hgb (11.5-15.3) g/dL Hct (37.0-47.0) % MCV (81-99) fL MCH (28.0-34.0) pg MCHC (30.0-36.0) g/dL RDW (12.1-15.1) % Plt Count (130-400) 10^3/c mm MPV (7.4-10.4) fL Neut % (Auto) % Lymph % (Auto) % [place] % (Auto) % Eos % (Auto) % Baso % (Auto) % Neut # (Auto) (1.8-7.7) 10^3/u L Lymph # (Auto) (0.8-4.8) 10^3/u L [place] # (Auto) (0.2-0.9) 10^3/u L Eos # (Auto) (0.0-0.8) 10^3/u L Baso # (Auto) (0.0-0.1) 10^3/u L Nucleated RBC % (a uto) % Nucleated RBCs # /100WBC PT (12.1-14.9) SECO NDS INR (0.8-1.2) Specimen Type Sample Site ABG pH (7.35-7.45) ABG pCO2 (35-45) mmHg ABG pO2 (80.0-100.0) mmH g ABG HCO3 (22-26) mmol/L ABG Base Excess (-2.0-2.0) mmol/ L Tra Test Hematocrit (37-47) % O2 Delivery Device FiO2 % Metal Base Blocker ID Blood Gas Notified Time Sodium (136-145) mmol/L Potassium (3.5-5.1) mmol/L Chloride (98-107) mmol/L Carbon Dioxide (22-29) mmol/L Anion Gap (5-19) BUN (6-20) mg/dL Creatinine (0.5-0.9) mg/dL GFR Calculation (90-130) mL/min Glucose (65-115) mg/dL POC Glucose (70-110) mg/dL Calculated Osmolal ity (285-295) mOsm/k g Lactic Acid (0.5-2.2) mmol/L Lactic Acid (Sepsi s) 2.5 H (0.5-2.2) mmol/L Calcium (8.5-10.5) mg/dL Phosphorus (2.5-4.5) mg/dL Magnesium (1.7-2.3) mg/dL Iron (37-145) ug/dL TIBC mcg/dl % Saturation (20-50) % Unsat Iron Binding (112-347) ug/dL Total Bilirubin (0.15-1.2) mg/dL AST (0-32) U/L ALT (0-33) U/L Alkaline Phosphata se (35-105) IU/L Ammonia (11-51) umol/L Creatine Kinase 60 (26-192) U/L Troponin T Baselin e (0-10) ng/L Troponin T 120 Min iqugmiut 107.2 H (0-10) ng/L Delta Troponin T -10.8 L (0-10) ABS# Total Protein (6.6-8.7) g/dL Albumin (3.5-5.2) g/dL Globulin (1.3-4.6) g/dL Lipase (13-60) U/L Vitamin B12 (232-1245) pg/mL Folate (4.8-37.3) ng/mL Procalcitonin (0-0.5) ng/mL TSH (0.27-4.20) uIU/ mL Prolactin (4.8-23.3) ng/mL Urine Color (Yellow) Urine Appearance (CLEAR) Urine pH (5-7) Ur Specific Gravit y (1.005-1.030) Urine Protein (Negative) Urine Glucose (UA) (Normal) Urine Ketones (Negative) Urine Blood (Negative) Urine Nitrate (Negative) Urine Bilirubin (NEGATIVE) Urine Urobilinogen (Negative) mg/dL Ur Leukocyte Roslyn ase (Negative) Salicylates (3-10) mg/dL Urine Opiates Scre en (Negative) ng/mL Acetaminophen (10-30) ug/mL Ur Barbiturates Sc reen (Negative) ng/mL Phenytoin (10-20) ug/mL Valproic Acid (50-100) ug/mL Carbamazepine (4.0-12.0) ug/mL Ur Phencyclidine S crn (Negative) ng/mL Ur Amphetamines Sc reen (Negative) ng/mL U Benzodiazepines Scrn (Negative) ng/mL [employer] (0.6-1.2) mmol/L Urine Cocaine Scre en (Negative) ng/mL U Marijuana (THC) Screen (Negative) ng/mL Ethyl Alcohol (0-10) mg/dL Hepatitis A IgM Ab (Nonreactive) Hep Bs Antigen (Nonreactive) Hep Bs Antibody (0-8.5) Hep B Core Total A b (Nonreactive) Hepatitis C Antibo dy (Nonreactive) HIV 1&2 Ab & HIV 1 Ag (Non-Reactiv) HIV 1&2 Antibody (Non-Reactiv) SARS-CoV-2 Ag (Rap id) (Negative) Blood Type Rho(D) Type Antibody Screen Crossmatch EKG Data^: EKG 1: EKG interpretation date: 10/14/19 EKG interpretation time: 11:55 Interpretation: Sinus tachycardia with a rate of 124. Normal intervals. Normal axis. Diffuse T wave flattening and some depression in the precordial leads. Critical Care Time Critical Care Time: Critical Care Time: Yes Total Critical Care Time: 40 Attestation: I provided critical care to this patient in the amount of 40 minutes exclusive of other procedures. She required repeated neur evals, rep eated re-evaluation of her BP, titration of sedations, adminstration of blood, multiple consultations and review of prior medical records. Discharge Plan Discharge Patient Disposition: Xfer Short-Term Hosp Clinical Impression: Altered mental status, Acute blood loss anemia, Acute GI bleeding Condition: Stable Discharge Orders: Discharge Order (Routine); Ordered 10/19/19 Ordered By: Chele Cano Discharge Diet: Cardiac Discharge Activity: Resume usual activity Discharge Date/Time: 10/14/19 17:41 Coding Level of Care Code ED Patient Account Specialist for Lindsey[facility] Fwd Exam Comprehensive
[2019-10-14 11:41] LABS: ABG PCO2 26.7 mmHg (35-45); ABG PH Result 7.43 (7.35-7.45); Arterial Blood Gas Hematocrit 20.9 % (37-47); Base Excess ABG -6.1 mmol/L (-2.0-2.0); Blood Gas Allen Test Pos; Blood Gas Operator Identificat glc; Blood Gas Sample Site Radial, right; Blood Gas Sample Type Arterial; HCO3 ABG 17.6 mmol/L (22-26); Oxygen Device ROOM AIR; PO2 ABG 79.7 mmHg (80.0-100.0)
[2019-10-14 11:45] LABS: Blood Gas CCRB Time 1145
[2019-10-14 11:46] LABS: Glucose Point of Care 217 mg/dL (70-110)
[2019-10-14 12:04] LABS: Basophils % 0.1 %; Lymphocytes % 11.8 %; Mean Corpuscular HGB Conc 31.4 g/dL (30.0-36.0); Mean Corpuscular Hemoglobin 32.6 pg (28.0-34.0); Mean Corpuscular Volume 103.7 fL (81-99); Mean Platelet Volume 10.1 fL (7.4-10.4); Monocytes # 0.6 10^3/uL (0.2-0.9); Monocytes % 3.6 %; Neutrophils # 14.16 10^3/uL (1.8-7.7); Nucleated Red Blood Cells % 0 %; Platelet Count 405 10^3/cmm (130-400); Red Blood Count 1.87 10^6/uL (4.1-5.3); Red Cell Distribution Width 13.3 % (12.1-15.1); White Blood Count 16.8 10^3/uL (4.0-10.0)
--- NOTE | 2019-10-14 12:16 | CT_ITS ---
WS: [id number] CT ABDOMEN AND PELVIS WITH CONTRAST HISTORY: vomiting blood, melena, AMS TECHNIQUE: Imaging performed of the abdomen and pelvis with IV contrast. Single phase imaging of the abdomen. Coronal and sagittal reformats are submitted. All CT scans at [facility] use at least one of these dose optimization techniques: automated exposure control; mA and/or kV adjustment per patient size (includes targeted exams where dose is matched to clinical indication); or iterativ e reconstruction. IV CONTRAST: Visipaque 320; 95 mL IV. Oral contrast: No DLP: 655.6 mGy.cm COMPARISON: 04/18/2015 Lower thorax: Mild dependent changes at the RIGHT lung base. Heart is normal size. No hiatal hernia. Nasogastric tube present in the distal esophagus. Liver/biliary system: Normal size liver. Mild dilatation of the bile ducts and hepatic steatosis near the falciform ligament. Gallbladder: Status post cholecystectomy. Pancreas: Normal. Spleen: Normal. Adrenal glands: Normal. Right kidney: Mild atrophy of the kidney and cortical thinning. Otherwise normal enhancement. No obst ruction. Left kidney: Mild atrophy of the kidney with no obstruction. Mild cortical thinning. Aorta: Mild atherosclerosis with no aneurysm. Lymphadenopathy: None. Free fluid: None. GI tract: Nasogastric tube is present within the stomach. No GI tract obstruction. The appendix is no rmal. There is very mild mucosal thickening through the region of the sigmoid extending over a long s egment. Abdominal wall: Unremarkable abdominal wall. No hernia. Pelvis: Ramos catheter present in a nondistended bladder. Small amount of air in the bladder from the catheter insertion most likely. There is no free fluid in the pelvis. No adenopathy. Bones: Unremarkable. CT/CT abdomen pelvis w con* [id number] IMPRESSION: 1. Prior cholecystectomy. Mild bile duct dilatation is probably physiologic an d stable. 2. Nasogastric tube in good position. 3. Long segment mild mucosal thickening through the sigmoid. No abscess or jules e air. Probably on the basis of colitis. 4. Ramos catheter present.
[2019-10-14 12:21] LABS: Add Urine Microscopic? NO
[2019-10-14 12:22] LABS: Ammonia 45 umol/L (11-51); Hematocrit 19.4 % (37.0-47.0); Hemoglobin 6.1 g/dL (11.5-15.3)
[2019-10-14] MEDS: succinylcholine 20 mg/mL SDV 10mL 100 MG IVP (12:26)
[2019-10-14 12:29] LABS: Lactic Sepsis W/Reflex 4.7 mmol/L (0.5-2.2)
[2019-10-14 12:30] LABS: Troponin(5th) Baseline 118 ng/L (0-10)
[2019-10-14 12:31] LABS: Blood Urine Neg (Negative); Glucose Urine UA Norm (Normal); Ketones Urine Negative (Negative); Nitrate Urine Negative (Negative); Protein Urine Neg (Negative); Specific Gravity, Urine 1.015 (1.005-1.030); Urine Appearance Clear (CLEAR); Urine Color Yellow (Yellow); pH Urine 5 (5-7)
[2019-10-14 12:32] LABS: Bilirubin Urine Neg (NEGATIVE); Leukocyte Esterase Urine Negative (Negative); Urobilinogen Urine Neg (Negative)
[2019-10-14 12:32] LABS: Procalcitonin 0.13 ng/mL (0-0.5); Thyroid Stimulating Hormone 0.32 uIU/mL (0.27-4.20)
[2019-10-14 12:37] LABS: Amphetamines Screen Urine Negative (Negative); Barbiturates Screen Urine Negative (Negative); Benzodiazepines Screen Urine Negative (Negative); Cocaine Screen Urine Negative (Negative); Opiate Screen Urine Negative (Negative); PCP Screen Urine Negative (Negative); THC Screen Urine Negative (Negative)
[2019-10-14 12:43] LABS: Alanine Aminotransferase 9 U/L (0-33); Albumin Level 3.7 g/dL (3.5-5.2); Alkaline Phosphatase 48 IU/L (35-105); Anion Gap 19.8 (5-19); Aspartate Amino Transferase 10 U/L (0-32); Calcium 8.6 mg/dL (8.5-10.5); Carbon Dioxide 18 mmol/L (22-29); Chloride 108 mmol/L (98-107); Creatine Phosphokinase 61 U/L (26-192); Globulin 2.9 g/dL (1.3-4.6); Glomerular Filtration Rate 38.8 mL/min (90-130); Glucose 204 mg/dL (65-115); Lipase 28 U/L (13-60); Magnesium 2.2 mg/dL (1.7-2.3); Osmolality Calculated 300 mOsm/kg (285-295); Potassium 3.8 mmol/L (3.5-5.1); Sodium 142 mmol/L (136-145); Total Bilirubin 0.2 mg/dL (0.15-1.2); Total Protein 6.6 g/dL (6.6-8.7)
[2019-10-14] MEDS: pantoprazole 40 mg SDV 80 MG IVP (12:50)
[2019-10-14] MEDS: sodium chloride 0.9% 1,000 ML 999 ML IV ×2 (12:56→13:29)
[2019-10-14] MEDS: pantoprazole 40 MG in sodium chloride 0.9% (plus) 100 ML 20 MG IV (12:57)
[2019-10-14 13:06] LABS: INR 0.95 (0.8-1.2)
[2019-10-14 13:08] LABS: Acetaminophen < 5.0 ug/mL (10-30); Alcohol Level < 10 mg/dL (0-10); Blood Urea Nitrogen 93 mg/dL (6-20); Salicylate < 0.3 mg/dL (3-10)
--- NOTE | 2019-10-14 13:18 | ECG_ITS ---
[facility] Test Date: 2019-10-14 Pat Name: Alina Young Department: Room: Gender: Female Director Music: : 1960 Requested By: Chayito Lee Order Number: [id number] Angela MD: Olegario Lagos M.D. Measurements Intervals [place] Rate: 104 P: 78 [place]: 116 QRS: 81 QRSD: 78 T: 83 QT: 359 QTc: 474 Interpretive Statements SINUS TACHYCARDIA WITH SHORT [place] INTERVAL SEPTAL MYOCARDIAL INFARCTION , OF INDETERMINATE AGE [40+ ms Q WAVE IN V1/V2] Compared to ECG 10/14/2019 11:50:02 Short [place] interval now present Myocardial infarct finding now present T-wave abnormality no longer present Electronically Signed On 10-14-2019 21:16:32 CDT by Olegario Lagos M.D. [email or web address]
--- NOTE | 2019-10-14 13:27 | XR_ITS ---
WS: [id number] PORTABLE CHEST HISTORY: CVL placement COMPARISON: 10/14/2019 Nasogastric tube is now present with tip extending below the GE junction. Endotracheal tube in good p osition. Tip ends several centimeters above the bimal. RIGHT central venous line is also present wit h the tip in the expected location of the distal SVC. The entire lungs are not included but there is no abnormality identified. No pneumothorax. Cardiac size: Normal. Mediastinum/Aorta: Normal mediastinum. No osseous abnormality seen. XR/XR chest 1V portable [id number] IMPRESSION: 1. Satisfactory nasogastric and endotracheal tube placements. 2. Interval placement of a RIGHT central line in good position.
[2019-10-14] MEDS: propofol 1,000 MG/100 ML INJ 20 MG (13:32)
[2019-10-14 13:42] LABS: Reflex Lactate Order REFLEX LACTIC ORDERD
[2019-10-14] MEDS: iodixanol 320 mg/mL 100mL Btl 75 ML IV (14:25)
--- NOTE | 2019-10-14 14:36 | PC.NURSE ---
patient returned from ct tolerated well
[2019-10-14] MEDS: propofol 1,000 MG/100 ML INJ 6.8 MG IV (14:54)
[2019-10-14 14:59] LABS: Troponin 5 2HR 107.2 ng/L (0-10); Troponin 5 2HR Delta -10.8 ABS# (0-10)
[2019-10-14 15:04] LABS: Valproic Acid Level 2.8 ug/mL (50-100)
[2019-10-14 15:05] LABS: Lithium 0.1 mmol/L (0.6-1.2); Phenytoin Dilantin 0.8 ug/mL (10-20)
--- NOTE | 2019-10-14 15:19 | US_ITS ---
WS: [id number] RIGHT UPPER QUADRANT ULTRASOUND HISTORY: r/o cirrhosis, portal HTN COMPARISON: 07/11/2011 Liver: 13.7 cm in length. Normal size and echogenicity with no intrahepatic dilatation. No mass. Gallbladder: Prior cholecystectomy. CBD: 0.9 cm Pancreas: Poorly visualized. Right kidney: 9.4 cm in length. Normal echogenicity with no mass or hydronephrosis. Aorta and IVC: Unremarkable. No ascites.I There is mild wall thickening involving the stomach and duodenum. US/US liver [id number] IMPRESSION: 1. Prior cholecystectomy. 2. Common bile duct is slightly enlarged which is probably physiologic. 3. No intrahepatic duct dilatation or mass.
[2019-10-14 15:30] LABS: Lactic Acid level (Lactate) 2.5 mmol/L (0.5-2.2)
[2019-10-14] MEDS: cefTRIAXone 1,000 MG in sodium chloride 0.9% (plus) 50 ML 100 MG IV (15:32)
--- NOTE | 2019-10-14 15:42 | PC.NURSE ---
us in room for us
--- NOTE | 2019-10-14 15:43 | PC.NURSE ---
patient clothes were cut off to remove them
--- NOTE | 2019-10-14 15:55 | PM.HP ---
Providers/Chief Complaint Admitting Physician: Song Jaramillo MD Primary Care Provider: Dirk Richards, ANTELMO-Debra Chief Complaint: GI BLEED History of Present Illness Alina Young is a 59 year old female with past medical history of alcohol abuse, COPD, GERD, vitamin D deficiency, anxiety, hypothyroidism, vitamin D insufficiency who was brought into the ER today by EMS. Not much history is available as patient is intubated. Most of the history to the chart review and: Patient's contact in the chart. As per patient's friend who is the person to contact me is not related to the patient but the left progressive. As per him patient has been confined to bed for last 1 week. He is not aware if patient has been having any cough, nausea, vomiting, dizziness, fever, diarrhea. As per the ER documentation patient called EMS today as she was not feeling well. On arrival of the EMS he was found unresponsive on the ground covered in coffee-ground emesis and bloody bowel movement. On arrival to the ER she was having 80 systolic blood pressure and was not responsive to any stimuli so she was intubated to protect her airway. Unfortunately no further history is available. Her blood work in the ER showed a white count of 16.8, hemoglobin of 6.1, hematocrit of 19.4, MCV of 103.7, platelet count of 405, neutropenia up to 14.6%, INR of 0.9, ABG showing a pH of 7.4, CO2 26.7, PO2 of 79.7, sodium of 142, chloride of 108, carbon dioxide of 18, BUN of 93, creatinine of 1.4, lactate of 4.7 with 2-hour lactate of 2.5, baseline troponin of 118, lipase of 28, urinalysis negative for any sign of infection drug toxicity screen negative with negative alcohol level. CT head was done which was consistent with chronic atrophic disease but no acute abnormality. Pelvis was done which showed prior cholecystectomy. Examination patient's blood pressure is 148/90 with heart rate of 97 saturating 99% on mechanical ventilator. Review of Systems General: Reports: ROS unobtainable due to endotracheal tube Medications/Allergies Home Medications Medication Instructions Recorded Confirmed Last Taken Type albuterol sulfate 90 mcg/actuation 2 inh INHALATION Q6H PRN #6.7 gm 06/15/19 10/14/19 Unknown Rx aerosol inhaler aspirin 81 mg tablet,delayed 81 mg PO DAILY 30 Days #30 tab 06/15/19 10/14/19 Unknown Rx release atorvastatin 20 mg tablet 20 mg PO DAILY 30 Days #30 tab 06/15/19 10/14/19 Unknown Rx budesonide-formoterol HFA 80 2 inh INHALATION BID 30 Days #6.9 06/15/19 10/14/19 Unknown Rx mcg-4.5 mcg/actuation aerosol gm inhaler celecoxib 200 mg capsule 200 mg PO BID 30 Days #60 cap 06/15/19 10/14/19 Unknown Rx cholecalciferol (vitamin D3) 1,250 50,000 unit PO .twice monthly 30 06/15/19 10/14/19 Unknown Rx mcg (50,000 unit) tablet Days #2 tab estradiol 1 gm VAGINAL .twice weekly 30 Days 06/15/19 10/14/19 Unknown Rx #42.5 gm famotidine 40 mg tablet 40 mg PO DAILY 30 Days #30 tab 06/15/19 10/14/19 Unknown Rx gabapentin 600 mg tablet 600 mg PO TID 30 Days #90 tab 06/15/19 10/14/19 Unknown Rx hydrocortisone 2.5 % topical cream 1 applic [place] BID PRN 30 Days #30 gm 06/15/19 10/14/19 Unknown Rx with perineal applicator nystatin 100,000 unit/gram topical 1 applic TOPICAL TID 30 Days #30 gm 06/15/19 10/14/19 Unknown Rx cream sertraline 100 mg tablet 100 mg PO DAILY 30 Days #30 tab 06/15/19 10/14/19 Unknown Rx tizanidine 2 mg capsule 2 mg PO TID PRN 30 Days #90 cap 06/15/19 10/14/19 Unknown Rx trazodone 100 mg tablet 100 mg PO DAILY 30 Days #30 tab 06/15/19 10/14/19 Unknown Rx chlorhexidine gluconate 0.12 % 15 ml BUCCAL BID #1500 ml 08/16/19 10/14/19 Unknown Rx mouthwash levothyroxine 50 mcg tablet 50 mcg PO DAILY #30 tab 08/21/19 10/14/19 Unknown Rx penicillin V potassium 500 mg 500 mg PO BID #20 tab 10/08/19 10/14/19 Unknown Rx tablet Allergies Allergy/AdvReac Type Severity Reaction Status Date / Time aripiprazole [From [facility]] Allergy Unknown Verified 06/15/19 11:01 duloxetine [From Cymbalta] Allergy Unknown Verified 06/15/19 11:01 tramadol Allergy Unknown Verified 06/15/19 11:01 PFSH Acute PFSH: Medical History Adult onset hypothyroidism Anxiety and depression Atrophy, vulva Temi vaginitis Caries involving multiple surfaces of tooth COPD (chronic obstructive pulmonary disease) Degenerative disc disease, lumbar GERD (gastroesophageal reflux disease) Lumbar spondylosis Mixed hyperlipidemia Rectal irritation Use of cane as ambulatory aid Vitamin D insufficiency Surgical History H/O: hysterectomy History of cholecystectomy Family History Other Cancer Diabetes Hypertension Social History (Updated 10/14/19 @ 16:01 by Song Jaramillo MD) Smoking and tobacco status: current every day smoker Second hand smoke exposure: Yes Smoking risk assessment/counseling performed?: Yes Alcohol intake: current Alcohol intake frequency: 0-2 Drinks per Day Alcohol type: hard liquor Alcohol use comment: Vodka Desire information about alcohol rehabilitation?: No Counseling given: No Desire information about substance/drug rehabilitation?: No Counseling given: No Adopted: No Caregiver/support person: No Lives independently: Yes Marital status: Single service: No Current occupational status: disabled History of recent travel: No Current gender identity: Female Vitals/I&O/Wt Last Vital Signs Temp 98.6 F 10/14/19 15:36 Pulse 99 10/14/19 15:36 Resp 20 H 10/14/19 15:36 BP 150/96 10/14/19 15:36 Pulse Ox 100 10/14/19 15:36 10/14/19 10/14/19 10/14/19 06:59 14:59 22:59 Intake Total 0 / 0 Balance 0 / 0 Weight last 48 hrs Weight 56.699 kg Physical Exam Narrative: EXAM NARRATIVE: General: Sedated, intubated HEENT: PERRLA, pupils bilaterally equal and reactive Chest: Normal vesicular breath sounds, no added sounds, equal good air entry bilaterally CVS: S1-S2 regular, no murmurs, no tachycardia, no gallops, no rubs Abdomen: Soft, nontender, no organomegaly, bowel sounds present Neuro: Pupils bilaterally equal and reactive, sedated, GCS: E1 M1 VT Urinary Catheter Management^: Ramos: Cath Placed During This Visit: yes Urinary Catheter Date of Insertion: 10/14/19 Urinary Catheter Time of Insertion: 11:45 Data : 10/14/19 11:45 10/14/19 11:45 Micro: Microbiology 10/14/19 11:45 Blood Culture - Preliminary Blood SPECIMEN COLLECTED 10/14/19 11:45 Blood Culture - Preliminary Blood SPECIMEN COLLECTED A&P Assessment and plan (1) Acute blood loss anemia: Status: Acute (2) Acute GI bleeding: Status: Acute (3) On mechanically assisted ventilation: Status: Acute (4) Alcohol abuse: Status: Acute (5) IAN (acute kidney injury): Status: Acute (6) High anion gap metabolic acidosis: Status: Acute (7) Lactic acidosis: Status: Acute (8) GERD (gastroesophageal reflux disease): Status: Acute Qualifiers: Esophagitis presence: esophagitis presence not specified Qualified Code(s): K21.9 - Gastro-esophageal reflux disease without esophagitis (9) COPD (chronic obstructive pulmonary disease): Status: Chronic Qualifiers: COPD type: unspecified COPD Qualified Code(s): J44.9 - Chronic obstructive pulmonary disease, unspecified Additional A&P Information 59-year-old female past medical history of alcohol abuse presented to the ER in unresponsive state when she was found on the floor by EMS covered in coffee-ground emesis and bloody bowel movement. Hemoglobin in the ER 6. Acute blood loss anemia: Most likely GI bleed. No coagulopathy. Platelets normal. CT abdomen results appreciated. Check liver ultrasound to rule out cirrhosis. Surgery has been consulted through ER. 2 units PRBC has been ordered through the ER. Patient receiving first unit right now. Continue with Protonix GGT. Zofran 4 mg every 6 hours as needed. Continue with NG tube to gravity. N.p.o. Check iron panel, vitamin B12, folate levels. Will replete accordingly. Patient will require EGD and colonoscopy. We will start patient on Zosyn. Blood cultures sent from the ER. Will de-escalate antibiotics as per the blood culture results. Altered mental status:: Most likely from acute blood loss anemia but cannot rule out seizure from alcohol withdrawal as her alcohol level in the ER was negative. Check prolactin. Patient loaded with Keppra in the ER. Continue IV Keppra 500 mg twice daily. History of alcohol abuse: Check vitamin B12 levels. Banana bag. After banana bag D5 normal saline at 75 cc/h. IV folate and thiamine. Seizure precautions, fall precautions. Check l hepatitis panel, HIV. Mechanical ventilation: Intubated in the ER to protect airway. We will discuss with surgery regarding EGD. If patient not getting EGD at present we will try to do sedation vacation and see if patient is extubated well. Fentanyl and Precedex for sedation. Sputum culture. Repeat ABG on mechanical ventilator so that the settings can be adjusted. Given the presentation and unsure history we will check patient with COVID-19 rapid rule out. IAN: Most likely because of severe dehydration. Baseline creatinine 0.9. Continue IV hydration as above. Continue monitor BMP daily. Medically consider for nephrotoxic drugs. Ramos catheter for strict input output charting. High anion gap acidosis: Most likely because of IAN, lactic acidosis, starvation ketosis. Continue with IV fluids as above. We will continue to monitor. Repeat lactate in 2 hours. COPD: Keep saturation over 90%. DuoNebs every 6 hours, budesonide twice daily. Elevated troponins: EKG within normal limits. Continue to monitor troponins as per the cycle. Full code. N.p.o. Protonix EGD. SCDs, no Lovenox or heparin. Attestations Medical Necessity Statement*: More than 2 midnights for acute blood loss anemia, GI bleed, mechanical ventilation Critical Care Time: Critical Care Time (min): 80 Coding Level of Care Code Acute Back Closer for [facility] Fwd Diagnoses Acute blood loss anemia D62 Acute GI bleeding K92.2 On mechanically assisted ventilation Z99.11 Alcohol abuse F10.10 IAN (acute kidney injury) N17.9 High anion gap metabolic acidosis E87.2 Lactic acidosis E87.2 GERD (gastroesophageal reflux disease) K21.9 Esophagitis presence: esophagitis presence not specified COPD (chronic obstructive pulmonary disease) J44.9 COPD type: unspecified COPD
[2019-10-14 17:03] LABS: ABG PCO2 35.8 mmHg (35-45); ABG PH Result 7.32 (7.35-7.45); Base Excess ABG -6.9 mmol/L (-2.0-2.0); Blood Gas Allen Test POS; Blood Gas Drawn By AMH; Blood Gas Operator Identificat AMH; HCO3 ABG 18.5 mmol/L (22-26); Oxygen Device VENT; Oxygen Saturation ABG 99.7; Potassium Level - ABG 3.7 mmol/L (3.5-5.0)
[2019-10-14 17:04] LABS: Alveolar-Arterial Oxygen Gradi 69.6 mmHg (5-10); Arterial Blood Gas Hematocrit 22.6 % (37-47); Blood Gas Sample Site RR; Blood Gas Sample Type ART; Carboxyhemoglobin 0.6 %THgb (0.4-20.1); HGB O2 Sat 97.8 % (95-100); Ionized Calcium Level - ABG 1.1 mmol/L (1.1-1.4); Methemoglobin 1.3 % (0.4-1.5); Total Hemoglobin 7.4 g/dL (12-16)
[2019-10-14 17:04] LABS: HIV 1 & 2 Antibody Non-Reactive (Non-Reactiv); HIV 1 & 2 Antigen Non-Reactive (Non-Reactiv)
[2019-10-14 17:05] LABS: SARS Covid-2 Antigen Negative (Negative)
[2019-10-14] MEDS: piperacillin-tazobactam 3.375 GM in sodium chloride 0.9% (plus) 50 ML IV ×2 (17:43→23:53)
[2019-10-14 18:07] LABS: Procalcitonin 0.13 ng/mL (0-0.5); Thyroid Stimulating Hormone 0.33 uIU/mL (0.27-4.20); Vitamin B12 171 pg/mL (232-1245)
[2019-10-14 18:09] LABS: Magnesium 2.2 mg/dL (1.7-2.3); Phosphorus 4.3 mg/dL (2.5-4.5); Prolactin 7.86 ng/mL (4.8-23.3)
[2019-10-14 18:11] LABS: Creatine Phosphokinase 60 U/L (26-192)
[2019-10-14 18:11] LABS: Iron 118 ug/dL (37-145); Percent Saturation 44.6 % (20-50); Total Iron Binding Capacity 264 mcg/dl; Unsaturated Iron Binding 146 ug/dL (112-347)
[2019-10-14] MEDS: folic acid 1 MG, multivitamin inj 10 ML, thiamine 100 MG in sodium chloride 0.9% 1,000 ML 252.8 MG IV (18:31)
[2019-10-14 18:50] LABS: Lactate (Lactic Acid level) 0.7 mmol/L (0.5-2.2)
[2019-10-14 18:58] LABS: Troponin 5 6HR 110.2 ng/L (0-10); Troponin 5 6HR Delta -7.8 ng/L (0-12)
[2019-10-14] MEDS: sodium chloride 0.9% (100 ml) 100 ML 15 ML (19:09)
--- NOTE | 2019-10-14 19:48 | PC.NURSE ---
Pt rcd blood in ED. Blood and tubing not on pt when rcd at shift change. Unsure what time blood ended.
[2019-10-14] MEDS: dexmedetomidine 400 MCG in sodium chloride 0.9% (100 ml) 100 ML 5.9 MCG IV (20:02)
[2019-10-14] MEDS: dextrose 5%-sod chloride 0.9% 1,000 ML 75 ML IV (21:29)
[2019-10-14 22:13] LABS: Hepatitis A Antibody IgM Non-Reactive (Nonreactive); Hepatitis B Surface Antigen Non-Reactive (Nonreactive); Hepatitis C Virus Antibody Non-Reactive (Nonreactive)
[2019-10-14 22:52] LABS: Hematocrit 25.1 % (37.0-47.0); Hemoglobin 7.8 g/dL (11.5-15.3)
[2019-10-15] VITALS (27 sets, daily range): BP systolic 99–159; BP diastolic 64–90; PULSE 67–91; RESP 0–17; TEMP 36.5–36.7; O2SAT 91–100
[2019-10-15 03:27] LABS: Folate Level > 20.0 ng/mL (4.8-37.3)
[2019-10-15 03:44] LABS: Basophils % 0.2 %; Eosinophils % 0.3 %; Hematocrit 26.4 % (37.0-47.0); Hemoglobin 8.3 g/dL (11.5-15.3); Lymphocytes # 1.1 10^3/uL (0.8-4.8); Mean Corpuscular HGB Conc 31.4 g/dL (30.0-36.0); Mean Corpuscular Hemoglobin 30.4 pg (28.0-34.0); Mean Corpuscular Volume 96.7 fL (81-99); Mean Platelet Volume 9.6 fL (7.4-10.4); Monocytes # 0.6 10^3/uL (0.2-0.9); Monocytes % 5.9 %; Neutrophils # 7.69 10^3/uL (1.8-7.7); Neutrophils % 81.1 %; Nucleated Red Blood Cells % 0 %; Platelet Count 184 10^3/cmm (130-400); Red Blood Count 2.73 10^6/uL (4.1-5.3); Red Cell Distribution Width 16.4 % (12.1-15.1); White Blood Count 9.5 10^3/uL (4.0-10.0)
[2019-10-15 04:09] LABS: Estmated Average Glucose 128; Hemoglobin A1C 6.1 % (4.0-6.0)
[2019-10-15 04:42] LABS: Hepatitis B Core AB, Total Reactive (Nonreactive)
[2019-10-15 04:46] LABS: Alanine Aminotransferase 8 U/L (0-33); Albumin Level 2.8 g/dL (3.5-5.2); Alkaline Phosphatase 39 IU/L (35-105); Anion Gap 10.8 (5-19); Aspartate Amino Transferase 10 U/L (0-32); Blood Urea Nitrogen 40 mg/dL (6-20); Calcium 7.1 mg/dL (8.5-10.5); Carbon Dioxide 18 mmol/L (22-29); Chloride 124 mmol/L (98-107); Globulin 2.1 g/dL (1.3-4.6); Glomerular Filtration Rate 73.9 mL/min (90-130); Glucose 167 mg/dL (65-115); Osmolality Calculated 309 mOsm/kg (285-295); Phosphorus 2.3 mg/dL (2.5-4.5); Potassium 3.8 mmol/L (3.5-5.1); Sodium 149 mmol/L (136-145); Total Bilirubin 0.2 mg/dL (0.15-1.2); Total Protein 4.9 g/dL (6.6-8.7)
[2019-10-15] MEDS: dexmedetomidine 400 MCG in sodium chloride 0.9% (100 ml) 100 ML 11.8 MCG IV (06:36)
[2019-10-15] MEDS: piperacillin-tazobactam 3.375 GM in sodium chloride 0.9% (plus) 50 ML IV ×2 (07:35→16:54)
[2019-10-15] MEDS: iron sucrose 200 MG in sodium chloride 0.9% (100 ml) 100 ML 220 MG IV (08:40)
[2019-10-15] MEDS: levothyroxine 100 mcg SDV 25 MCG IVP (08:52)
--- NOTE | 2019-10-15 09:01 | PC.NURSE ---
patient unable to assess psychiatric profile due to unresponsiveness
[2019-10-15] MEDS: dextrose 5%-sod chloride 0.45% 1,000 ML 75 ML IV (09:46)
[2019-10-15] MEDS: midazolam 1 mg/mL INJ 2 mL 2 MG (10:28)
[2019-10-15] MEDS: EPINEPHrine 1 mg/mL INJ 0.3 MG XX (10:47)
--- NOTE | 2019-10-15 10:53 | PC.NURSE ---
Verbal order from Dr Kelly to administer 2mg versed IV prior to procedure (EGD). This was overridden in the Pyxis and administered as shown on MAY. I also ordered a CXR to confirm Central line placement. It appears that the line had migrated out overnight. Awaiting results on Chest Xray.
--- NOTE | 2019-10-15 11:00 | XRR_ITS ---
PROCEDURE INFORMATION: Exam: XR Chest, 1 View Exam date and time: 10/15/2019 10:38 AM Age: 59 years old Clinical indication: Device placement; Other: Possible line migration; Patient HX: Central line is dislodged TECHNIQUE: Imaging protocol: XR of the chest Views: 1 view. COMPARISON: CR XR chest 1V portable [id number] 10/14/2019 1:33 PM FINDINGS: Tubes, catheters and devices: Endotracheal tube, feeding tube, and central venous catheter again demonstrated. The central venous catheter terminates in the distal right internal jugular vein. The endotracheal tube terminates 3.5 cm above the bimal. Lungs: Hyperinflation and interstitial prominence. Skin fold overlying the superior medial aspect of the right hemithorax. Pleural space: No pleural effusion. Heart/Mediastinum: No cardiomegaly. Bones/joints: Mild convexity of the spine. XR/XR chest 1V portable [id number] IMPRESSION: Endotracheal tube, feeding tube, and central venous catheter again demonstrated. The central venous catheter terminates in the distal right internal jugular vein. The endotracheal tube terminates 3.5 cm above the bimal.
--- NOTE | 2019-10-15 11:18 | SUR.OPER ---
0.3 mg Epi administered by Dr Kelly for gastric erosion. Resolution clip applied to gastric erosion.
--- NOTE | 2019-10-15 11:55 | PC.NURSE ---
Central line was removed intact without any issues. Another peripheral IV was established prior to doing so. OG was removed during the EGD intact.
--- NOTE | 2019-10-15 11:57 | P.PN_ITS ---
Subjective Subjective: Interval history: No acute events overnight. Patient had remained intubated overnight. Patient underwent endoscopy earlier in the morning where a polyp lateral mucosal lesion which appeared vascular was injected with epinephrine and clipped. Patient remained stable during and after the endoscopy and was eventually extubated at around 115. Post extubation patient has r emained on nasal cannula saturating 96%. She has remained hemodynamically stable and afebrile. Vitals/I&O/Wt Last Vital Signs Temp 97.7 F 10/15/19 08:00 Pulse 70 10/15/19 08:00 Resp 14 10/15/19 11:33 BP 133/80 10/15/19 08:00 Pulse Ox 99 10/15/19 08:00 10/14/19 10/15/19 10/15/19 22:59 06:59 14:59 Intake Total 3415.688 / 3415.688 1257.075 / 4672.763 1182.75 / 1182.75 Output Total 650 / 650 850 / 1500 100 / 100 Balance 2765.688 / 2765.688 407.075 / 3172.763 1082.75 / 1082.75 Weight last 48 hrs Weight 56.699 kg Physical Exam Narrative: EXAM NARRATIVE: General: AO x3, mildly dehydrated, mildly weak HEENT: PERRLA, pupils bilaterally equal and reactive Chest: Normal vesicular breath sounds, no added sounds, equal good air entry bilaterally CVS: S1-S2 regular, no murmurs, no tachycardia, no gallops, no rubs Abdomen: Soft, nontender, no organomegaly, bowel sounds present Neuro: Moving all limbs appropriately, 4 / 5, pupils bilaterally equal and reactive Urinary Catheter Management^: Ramos: Cath Placed During This Visit: yes Reason for Continuing Indwelling Catheter: Accurate Measurement of Urinary Output in Critically Ill Patients Urinary Catheter Date of Insertion: 10/14/19 Urinary Catheter Time of Insertion: 11:45 Data : 10/15/19 03:25 10/15/19 03:25 Micro: Microbiology 10/14/19 11:45 Blood Culture - Preliminary Blood NEGATIVE TO DATE 10/14/19 18:02 MRSA Culture - Final Nose 10/14/19 11:45 Blood Culture - Preliminary Blood Gram positive cocci A&P Assessment and plan (1) Acute blood loss anemia: Status: Acute (2) Acute GI bleeding: Status: Acute (3) On mechanically assisted ventilation: Status: Acute (4) Alcohol abuse: Status: Acute (5) IAN (acute kidney injury): Status: Acute (6) High anion gap metabolic acidosis: Status: Acute (7) Lactic acidosis: Status: Acute (8) GERD (gastroesophageal reflux disease): Status: Acute Qualifiers: Esophagitis presence: esophagitis presence not specified Qualified Code(s): K21.9 - Gastro-esophageal reflux disease without esophagitis (9) COPD (chronic obstructive pulmonary disease): Status: Chronic Qualifiers: COPD type: unspecified COPD Qualified Code(s): J44.9 - Chronic obstructive pulmonary disease, unspecified Additional A&P Information 59-year-old female past medical history of alcohol abuse presented to the ER in unresponsive state when she was found on the floor by EMS covered in coffee- ground emesis and bloody bowel movement. Hemoglobin in the ER 6. Acute blood loss anemia: Most likely GI bleed. No coagulopathy. Platelets normal. CT abdomen, liver ultrasound results appreciated. Dr. Henderson recommendations appreciated. Patient is post EGD, clipping of polypoid lesion in the stomach. Patient is post 2 units PRBC transfusion. Protonix 40 mg IV twice daily. Zofran 4 mg every 6 hours as needed. Vitamin B12 thousand micrograms IM, folate levels within normal limits, iron panel appreciated. Keep n.p.o. Will advance diet as per surgical recommendations And most likely start diet tomorrow at that time we will start her on oral thiamine and folic acid along with multivitamins. For now continue with Zosyn. Blood cultures have remained negative. If patient remains afebrile till tomorrow we will discontinue antibiotics. Check hemoglobin hematocrit every 12 hourly. Altered mental status: Most likely from acute blood loss anemia but cannot rule out seizure from alcohol withdrawal as her alcohol level in the ER was negative. Continue with Keppra 5 mg twice daily. Cannot rule out seizure. Prolactin within normal limits. History of alcohol abuse: Check vitamin B12 levels. Switch the fluid to D5 half NS and sodium levels are increasing at 75 cc/h. IV folate and thiamine. Seizure precautions, fall precautions. CIWA protocol. Mechanical ventilation: Extubated today on October 14. Given the presentation and unsure history we will check patient with COVID-19 rapid rule out. IAN: Resolved. Most likely because of severe dehydration. Baseline creatinine 0.9. Continue IV hydration as above. Continue monitor BMP daily. Medical reconciliation for nephrotoxic drugs. GERHARD Ramos. High anion gap acidosis: Resolved. Most likely because of IAN, lactic acidosis, starvation ketosis. Continue with IV fluids as above. We will continue to monitor. Repeat lactate in 2 hours. COPD: Keep saturation over 90%. DuoNebs every 6 hours, budesonide twice daily. Elevated troponins: EKG within normal limits. Continue to monitor troponins as per the cycle. We will start her on her chronic medications of trazodone 100 mg at bedtime, sertraline but at a lower dose of 50 mg daily, gabapentin at a lower dose of 300 mg p.o. 3 times daily along with Xanax 0.25 twice daily as needed. Full code. N.p.o. Protonix EGD. SCDs, no Lovenox or heparin. Attestations Medical Necessity Statement*: Acute blood loss anemia, GI bleed Time Spent in Patient Care: Greater than 35 minutes (>than 50% of time spent in counselling and/or direct pt care on unit) . Coding Level of Care Code Acute Charrer for [facility] Fwd Diagnoses Acute blood loss anemia D62 Acute GI bleeding K92.2 On mechanically assisted ventilation Z99.11 Alcohol abuse F10.10 IAN (acute kidney injury) N17.9 High anion gap metabolic acidosis E87.2 Lactic acidosis E87.2 GERD (gastroesophageal reflux disease) K21.9 Esophagitis presence: esophagitis presence not specified COPD (chronic obstructive pulmonary disease) J44.9 COPD type: unspecified COPD
[2019-10-15] MEDS: pantoprazole 40 mg SDV IVP (12:36)
[2019-10-15] MEDS: cyanocobalamin 1,000 mcg/mL SDV 1000 MCG IM (12:36)
--- NOTE | 2019-10-15 12:41 | P.CONIM_ITS ---
Providers/Reason For Consult Consulting Physican/Specialty*: Dr. Jaramillo Reason for Consult*: GI bleed Attending Physician: Song Jaramillo MD Primary Care Provider: RODOLFO Sneed History of Present Illness History of Present Illness Alina Young is a 59 year old female with a history of alcohol abuse who was presented to the ER by the EMS and she was found unresponsive at her home. Patient was intubated. Apparently she was covered in coffee-ground emesis at home. CT abdomen pelvis did not show any significant pathology. Since admission she has not had any melena and her NG output has not been bloody. Review of Systems General: Reports: ROS unobtainable due to endotracheal tube Meds/Allergies Home Medications and Allergies Home Medications Medication Instructions Recorded Confirmed Last Taken Type albuterol sulfate 90 mcg/actuation 2 inh INHALATION Q6H PRN #6.7 gm 06/15/19 10/14/19 Unknown Rx aerosol inhaler aspirin 81 mg tablet,delayed 81 mg PO DAILY 30 Days #30 tab 06/15/19 10/14/19 Unknown Rx release atorvastatin 20 mg tablet 20 mg PO DAILY 30 Days #30 tab 06/15/19 10/14/19 Unknown Rx budesonide-formoterol HFA 80 2 inh INHALATION BID 30 Days #6.9 06/15/19 10/14/19 Unknown Rx mcg-4.5 mcg/actuation aerosol gm inhaler celecoxib 200 mg capsule 200 mg PO BID 30 Days #60 cap 06/15/19 10/14/19 Unknown Rx cholecalciferol (vitamin D3) 1,250 50,000 unit PO .twice monthly 30 06/15/19 10/14/19 Unknown Rx mcg (50,000 unit) tablet Days #2 tab estradiol 1 gm VAGINAL .twice weekly 30 Days 06/15/19 10/14/19 Unknown Rx #42.5 gm famotidine 40 mg tablet 40 mg PO DAILY 30 Days #30 tab 06/15/19 10/14/19 Unknown Rx gabapentin 600 mg tablet 600 mg PO TID 30 Days #90 tab 06/15/19 10/14/19 Unknown Rx hydrocortisone 2.5 % topical cream 1 applic AL BID PRN 30 Days #30 gm 06/15/19 10/14/19 Unknown Rx with perineal applicator nystatin 100,000 unit/gram topical 1 applic TOPICAL TID 30 Days #30 gm 06/15/19 10/14/19 Unknown Rx cream sertraline 100 mg tablet 100 mg PO DAILY 30 Days #30 tab 06/15/19 10/14/19 Unknown Rx tizanidine 2 mg capsule 2 mg PO TID PRN 30 Days #90 cap 06/15/19 10/14/19 Unknown Rx trazodone 100 mg tablet 100 mg PO DAILY 30 Days #30 tab 06/15/19 10/14/19 Unknown Rx chlorhexidine gluconate 0.12 % 15 ml BUCCAL BID #1500 ml 08/16/19 10/14/19 Unknown Rx mouthwash levothyroxine 50 mcg tablet 50 mcg PO DAILY #30 tab 08/21/19 10/14/19 Unknown Rx penicillin V potassium 500 mg 500 mg PO BID #20 tab 10/08/19 10/14/19 Unknown Rx tablet Allergies Allergy/AdvReac Type Severity Reaction Status Date / Time aripiprazole [From Abilify] Allergy Unknown Verified 06/15/19 11:01 duloxetine [From Cymbalta] Allergy Unknown Verified 06/15/19 11:01 tramadol Allergy Unknown Verified 06/15/19 11:01 Current Medications Current Medications Generic Name Dose Route Start Last Admin Trade Name Freq PRN Reason Stop Dose Admin Fentanyl 1,000 mcg/ Sodium 100 mls @ 0 mls/hr 10/14/19 12:45 10/15/19 08:15 Chloride IV 75 mcg/hr .Q0M LAVONNE 7.5 mls/hr Titration Protocol Per Protocol Iron Sucrose 200 mg/ Sodium 110 mls @ 220 mls/hr 10/15/19 09:00 10/15/19 09:29 Chloride IV 10/20/19 08:59 Infused DAILY LAVONNE Infusion Piperacillin Sod/Tazobactam 50 mls @ 12.5 mls/hr 10/14/19 16:00 10/15/19 08:38 Sod 3.375 gm/ Sodium Chloride IV Infused Q8H LAVONNE Infusion Protocol Levetiracetam 500 mg/ Sodium 105 mls @ 440 mls/hr 10/14/19 20:00 10/15/19 08:55 Chloride IV Infused Q12H LAVONNE Infusion Dexmedetomidine HCl 400 mcg/ 104 mls @ 0 mls/hr 10/14/19 17:41 10/15/19 06:36 Sodium Chloride IV 0.8 mcg/kg/hr .Q0M LAVONNE 11.8 mls/hr Administration Protocol Per Protocol Dextrose/Sodium Chloride 1,000 mls @ 75 mls/hr 10/15/19 09:30 10/15/19 09:46 Dextrose 5%-Sod Chloride 0.45% IV 75 mls/hr .[id number] LAVONNE Administration Levothyroxine Sodium 25 mcg 10/15/19 09:00 10/15/19 08:52 Synthroid IVP 25 mcg DAILY LAVONNE Administration Pantoprazole Sodium 40 mg 10/15/19 12:00 10/15/19 12:36 Protonix IVP 40 mg Q12H LAVONNE Administration Thiamine HCl 100 mg 10/15/19 09:00 10/15/19 08:47 Vitamin B-1 IV 100 mg DAILY LAVONNE Administration PFSH Acute PFSH: Medical History Adult onset hypothyroidism Anxiety and depression Atrophy, vulva Temi vaginitis Caries involving multiple surfaces of tooth COPD (chronic obstructive pulmonary disease) Degenerative disc disease, lumbar GERD (gastroesophageal reflux disease) Lumbar spondylosis Mixed hyperlipidemia Rectal irritation Use of cane as ambulatory aid Vitamin D insufficiency Surgical History H/O: hysterectomy History of cholecystectomy Family History Other Cancer Diabetes Hypertension Social History Smoking and tobacco status: current every day smoker Second hand smoke exposure: Yes Smoking risk assessment/counseling performed?: Yes Alcohol intake: current Alcohol intake frequency: 0-2 Drinks per Day Alcohol type: hard liquor Desire information about alcohol rehabilitation?: No Counseling given: No Desire information about substance/drug rehabilitation?: No Counseling given: No Adopted: No Caregiver/support person: No Lives independently: Yes Marital status: Single service: No Current occupational status: disabled History of recent travel: No Current gender identity: Female Vitals/I&O/Wt Last Vital Signs Temp 98.1 F 10/15/19 12:00 Pulse 67 10/15/19 12:00 Resp 14 10/15/19 11:33 BP 159/90 10/15/19 12:00 Pulse Ox 98 10/15/19 12:00 10/14/19 10/15/19 10/15/19 22:59 06:59 14:59 Intake Total 3415.688 / 4672.763 1257.075 / 4672.763 1182.75 / 1182.75 Output Total 650 / 1500 850 / 1500 300 / 300 Balance 2765.688 / 3172.763 407.075 / 3172.763 882.75 / 882.75 Weight last 48 hrs Weight 125 lb Physical Exam Narrative: EXAM NARRATIVE: HEENT: Normocephalic, intubated Eye: Sclera /conjunctiva normal Respiratory and chest: Bilateral clear breath sounds on auscultation Cardiovascular: Normal S1 and S2 heart sounds Abdomen: Soft to palpation Neurological: Oriented to place person and time Skin: Intact, no lesions appreciated on gross exam Urinary Catheter Management^: Ramos: Cath Placed During This Visit: yes Reason for Continuing Indwelling Catheter: Accurate Measurement of Urinary Output in Critically Ill Patients Urinary Catheter Date of Insertion: 10/14/19 Urinary Catheter Time of Insertion: 11:45 Data Micro: Micro: Microbiology 10/14/19 11:45 Blood Culture - Pr eliminary Blood NEGATIVE TO KIA E 10/14/19 18:02 MRSA Culture - Fin al Nose 10/14/19 11:45 Blood Culture - Pr eliminary Blood Gram positive c occi A&P Assessment and plan (1) Acute GI ble[age]-year-old female with acute GI bleed, with history of alcoholism who was noted to have a hemoglobin of 6 on initial presentation. Overnight she has not had any significant melena or bloody NG output Plan for EGD under MAC Patient does not have any family and we were unable to reach her friend to get consent but I discussed the case with her hospitalist Dr. Parra and we both agree that she needs an EGD. Status: Acute Coding Level of Care Code Acute Aircraft Structural Repairer for [facility] Fwd Diagnoses Acute GI bleeding K92.2
--- NOTE | 2019-10-15 13:45 | PC.RESP ---
extubated pt extubated to room air. tolerated well
[2019-10-15 16:42] LABS: Hematocrit 26.1 % (37.0-47.0); Hemoglobin 8.1 g/dL (11.5-15.3)
[2019-10-15] MEDS: sertraline 50 mg Tablet PO ×2 (16:54→19:41)
[2019-10-15] MEDS: trazodone 100 mg Tablet PO ×2 (16:54→19:41)
[2019-10-15 16:55] LABS: Sodium 144 mmol/L (136-145)
[2019-10-15] MEDS: HYDROcodone-acetaminophen 5-325 mg Tablet 1 TAB PO (17:14)
[2019-10-15] MEDS: ALPRAZolam 0.25 mg Tablet PO (17:15)
[2019-10-15] MEDS: nicotine 21 mg Patch 1 PATCH TRANSDERMA (18:06)
--- NOTE | 2019-10-15 18:40 | PC.RESP ---
SMOKING CESSATION AND PULMONARY REHAB INFORMATION SENT TO PATIENT.
--- NOTE | 2019-10-15 19:43 | PC.NURSE ---
Pt refused zoloft and trazadone for dayshift nurse, Pt agreed to take it for me.
[2019-10-15] MEDS: LORazepam 2 mg/mL INJ 1 mL IM (19:58)
--- NOTE | 2019-10-15 20:01 | PC.NURSE ---
Pt is talking/yelling to herself. She keeps repeating nonsensical phases (such as: that damn dog! , that's going to kill you ). Pt states she is not hallucinating. Pt states she is in severe back pain and is repeatedly telling me she is allergic to tramadol.
[2019-10-15] MEDS: gabapentin 300 mg Capsule PO (20:27)
[2019-10-16] VITALS (11 sets, daily range): BP systolic 102–155; BP diastolic 79–95; PULSE 84–97; RESP 15–22; TEMP 36.7–36.9; O2SAT 92–99; BMI 18.0
[2019-10-16] MEDS: dextrose 5%-sod chloride 0.45% 1,000 ML 75 ML IV (00:29)
[2019-10-16] MEDS: HYDROcodone-acetaminophen 5-325 mg Tablet 1 TAB PO ×2 (00:30→08:18)
[2019-10-16] MEDS: pantoprazole 40 mg SDV IVP ×3 (00:30→23:46)
[2019-10-16] MEDS: piperacillin-tazobactam 3.375 GM in sodium chloride 0.9% (plus) 50 ML IV ×4 (00:30→23:23)
--- NOTE | 2019-10-16 01:24 | PC.NURSE ---
Addendum entered by Thalia Piña RN 10/16/19 01:25: Witnessed waste of 55 mL of fentanyl. Original Note: Wasted 55 mL IV fentanyl with Thalia Piña RN
--- NOTE | 2019-10-16 03:28 | PC.NURSE ---
After lab issa morning blood, pt began complaining again of severe back pain and that her leg is broken . Pt asked for more pain medicine and was reminded of the hydrocodone given at 0030. Dr. Mauro was contacted and home meds were referenced. Tizanidine was ordered.
[2019-10-16] MEDS: tizanidine 4 mg Tablet 2 MG PO ×2 (03:35→18:24)
[2019-10-16 03:47] LABS: Basophils % 0.2 %; Eosinophils # 0.4 10^3/uL (0.0-0.8); Hematocrit 24.8 % (37.0-47.0); Lymphocytes # 1.6 10^3/uL (0.8-4.8); Lymphocytes % 18.5 %; Mean Corpuscular HGB Conc 32.3 g/dL (30.0-36.0); Mean Corpuscular Hemoglobin 30.9 pg (28.0-34.0); Mean Corpuscular Volume 95.8 fL (81-99); Mean Platelet Volume 9.9 fL (7.4-10.4); Monocytes # 0.5 10^3/uL (0.2-0.9); Monocytes % 6.1 %; Neutrophils # 6.23 10^3/uL (1.8-7.7); Neutrophils % 70.6 %; Nucleated Red Blood Cells % 0.3 %; Platelet Count 214 10^3/cmm (130-400); Red Blood Count 2.59 10^6/uL (4.1-5.3); Red Cell Distribution Width 16.2 % (12.1-15.1); White Blood Count 8.8 10^3/uL (4.0-10.0)
[2019-10-16 04:10] LABS: Alanine Aminotransferase 9 U/L (0-33); Albumin Level 2.7 g/dL (3.5-5.2); Alkaline Phosphatase 40 IU/L (35-105); Anion Gap 8.9 (5-19); Aspartate Amino Transferase 13 U/L (0-32); Blood Urea Nitrogen 9 mg/dL (6-20); Calcium 7.1 mg/dL (8.5-10.5); Carbon Dioxide 20 mmol/L (22-29); Chloride 119 mmol/L (98-107); Globulin 2.3 g/dL (1.3-4.6); Glomerular Filtration Rate 127.2 mL/min (90-130); Glucose 94 mg/dL (65-115); Osmolality Calculated 296 mOsm/kg (285-295); Sodium 145 mmol/L (136-145); Total Bilirubin 0.3 mg/dL (0.15-1.2)
[2019-10-16 04:35] LABS: Potassium 2.9 mmol/L (3.5-5.1)
[2019-10-16] MEDS: potassium chloride premix 40 MEQ/100 ML PREMIX 25 MEQ IV (05:06)
[2019-10-16 06:05] LABS: Magnesium 1.8 mg/dL (1.7-2.3)
[2019-10-16] MEDS: ALPRAZolam 0.25 mg Tablet PO (07:40)
[2019-10-16] MEDS: nicotine 21 mg Patch 1 PATCH TRANSDERMA (09:58)
[2019-10-16] MEDS: gabapentin 300 mg Capsule PO ×3 (09:58→20:38)
[2019-10-16] MEDS: sertraline 50 mg Tablet PO (09:58)
[2019-10-16] MEDS: folic acid 1 mg Tablet PO (09:58)
[2019-10-16] MEDS: multivitamin therapeutic Tablet 1 TAB PO (09:58)
[2019-10-16] MEDS: potassium chloride oral liq 20 mEq/15 mL UDC 80 MEQ PO (12:21)
[2019-10-16] MEDS: levothyroxine 50 mcg Tablet PO (12:21)
--- NOTE | 2019-10-16 14:32 | PM.PN ---
Subjective Subjective: Interval history: And off 24 hours patient had been extubated to room air. No acute events overnight. She denies having nausea, vomiting, headache, palpitations, dizziness on examination. Lying comfortably in bed. Does complain of feeling weak. She is complaining of pain in her back and legs. She states she takes [place] every 4 hours though it is not available on her home medication list which is confirmed to pharmacy as well. Vitals/I&O/Wt Last Vital Signs Temp 98.5 F 10/16/19 12:00 Pulse 85 10/16/19 12:00 Resp 18 10/16/19 12:00 BP 151/92 10/16/19 12:00 Pulse Ox 97 10/16/19 12:00 10/15/19 10/16/19 10/16/19 22:59 06:59 14:59 Intake Total 400 / 1582.75 1155 / 2737.75 1381 / 1381 Output Total 1400 / 2000 900 / 2900 Balance -1000 / -417.25 255 / -162.25 1381 / 1381 Weight last 48 hrs Weight 50.712 kg Physical Exam Narrative: EXAM NARRATIVE: General: AO x3, mildly dehydrated, mildly weak HEENT: PERRLA, pupils bilaterally equal and reactive Chest: Normal vesicular breath sounds, no added sounds, equal good air entry bilaterally CVS: S1-S2 regular, no murmurs, no tachycardia, no gallops, no rubs Abdomen: Soft, nontender, no organomegaly, bowel sounds present Neuro: Moving all limbs appropriately, 4 / 5, pupils bilaterally equal and reactive Urinary Catheter Management^: Ramos: Cath Placed During This Visit: yes, but has since been removed by the nurse Reason for Continuing Indwelling Catheter: Accurate Measurement of Urinary Output in Critically Ill Patients Urinary Catheter Date of Insertion: 10/14/19 Urinary Catheter Time of Insertion: 11:45 Date Urinary Catheter Removed: 10/16/19 Time Urinary Catheter Discontinued: 08:30 Data : 10/16/19 02:55 10/16/19 02:55 Micro: Microbiology 10/14/19 11:45 Blood Culture - Preliminary Blood Coagulase negativ staphylococc 10/14/19 11:45 Blood Culture - Preliminary Blood NEGATIVE TO DATE 10/14/19 18:02 MRSA Culture - Final Nose A&P Assessment and plan (1) Acute blood loss anemia: Status: Acute (2) Acute GI bleeding: Status: Acute (3) On mechanically assisted ventilation: Status: Acute (4) Alcohol abuse: Status: Acute (5) IAN (acute kidney injury): Status: Acute (6) High anion gap metabolic acidosis: Status: Acute (7) Lactic acidosis: Status: Acute (8) GERD (gastroesophageal reflux disease): Status: Acute Qualifiers: Esophagitis presence: esophagitis presence not specified Qualified Code(s): K21.9 - Gastro-esophageal reflux disease without esophagitis (9) COPD (chronic obstructive pulmonary disease): Status: Chronic Qualifiers: COPD type: unspecified COPD Qualified Code(s): J44.9 - Chronic obstructive pulmonary disease, unspecified Additional A&P Information 59-year-old female past medical history of alcohol abuse presented to the ER in unresponsive state when she was found on the floor by EMS covered in coffee-ground emesis and bloody bowel movement. Hemoglobin in the ER 6. Acute blood loss anemia: Most likely GI bleed. No coagulopathy. Platelets normal. CT abdomen, liver ultrasound results appreciated. Dr. Henderson recommendations appreciated. Patient is post EGD, clipping of polypoid lesion in the stomach. Patient is post 2 units PRBC transfusion. Hemoglobin stable. Continue with Protonix, Zofran. We will switch IV to oral medications. Advance diet to GI soft. For now continue with Zosyn. Blood cultures have remained negative. If patient remains afebrile till tomorrow we will discontinue antibiotics. Check hemoglobin hematocrit every 12 hourly. Altered mental status: Most likely from acute blood loss anemia but cannot rule out seizure from alcohol withdrawal as her alcohol level in the ER was negative. Continue with Keppra 500 mg twice daily. Cannot rule out seizure. Prolactin within normal limits. History of alcohol abuse: Patient tolerating oral diet well. Stop IV fluids Encouraged to take more orally. Seizure precautions, fall precautions. CIWA protocol. Mechanical ventilation: Extubated today on October 14. Given the presentation and unsure history we will check patient with COVID-19 rapid rule out. IAN: Resolved. Most likely because of severe dehydration. Baseline creatinine 0.9. Continue IV hydration as above. Continue monitor BMP daily. Medical reconciliation for nephrotoxic drugs. GERHARD Ramos. High anion gap acidosis: Resolved. Most likely because of IAN, lactic acidosis, starvation ketosis. Continue with IV fluids as above. We will continue to monitor. COPD: Keep saturation over 90%. DuoNebs every 6 hours, budesonide twice daily. Elevated troponins: EKG within normal limits. Continue to monitor troponins as per the cycle. We will start her on her chronic medications of trazodone 100 mg at bedtime, sertraline but at a lower dose of 50 mg daily, gabapentin at a lower dose of 300 mg p.o. 3 times daily along with Xanax 0.25 twice daily as needed. Patient asking for pain medications. She states she takes [place] every 4 hours. [place] not available in her home medication list through pharmacy. For now we will start her on home dose of Zanaflex and tramadol 50 mg p.o. every 8 hours as needed. Patient complain of extreme weakness and difficulty to stand up. Will get physical therapy evaluation. We will plan to discharge to home versus SNF depending on the physical therapy evaluation. Patient is asking for pain medication. Full code. N.p.o. Protonix EGD. SCDs, no Lovenox or heparin given GI bleed requiring transfusion. Transfer to floor. Attestations Medical Necessity Statement*: Acute blood loss anemia, GI bleed Time Spent in Patient Care: Greater than 35 minutes (>than 50% of time spent in counselling and/or direct pt care on unit). Coding Level of Care Code Acute Hearing Screen Coordinator for [facility] Fwd Diagnoses Acute blood loss anemia D62 Acute GI bleeding K92.2 On mechanically assisted ventilation Z99.11 Alcohol abuse F10.10 IAN (acute kidney injury) N17.9 High anion gap metabolic acidosis E87.2 Lactic acidosis E87.2 GERD (gastroesophageal reflux disease) K21.9 Esophagitis presence: esophagitis presence not specified COPD (chronic obstructive pulmonary disease) J44.9 COPD type: unspecified COPD
--- NOTE | 2019-10-16 15:22 | PC.NURSE ---
ORTHOSTATICS COMPLETED AT LAYING 126/82, SITTING OF 132/89, AND STANDING OF 140/78
[2019-10-16 15:54] LABS: Glucose Point of Care 93 mg/dL (70-110)
[2019-10-16] MEDS: TRAMadol 50 mg Tablet PO (18:28)
[2019-10-16] MEDS: levETIRAcetam 500 mg Tablet PO (20:37)
[2019-10-16] MEDS: trazodone 100 mg Tablet PO (20:39)
[2019-10-17] VITALS: BP 133/76; PULSE 86; RESP 18; TEMP 36.9; O2SAT 97
[2019-10-17] MEDS: ALPRAZolam 0.25 mg Tablet PO (03:27)
[2019-10-17] MEDS: TRAMadol 50 mg Tablet PO ×3 (03:27→21:22)
[2019-10-17 04:00] VITALS: BP 126/82; PULSE 82; RESP 17; TEMP 36.7; O2SAT 98
[2019-10-17 07:20] VITALS: BP 167/98; PULSE 76; RESP 18; TEMP 36.6; O2SAT 97
[2019-10-17] MEDS: levETIRAcetam 500 mg Tablet PO ×2 (08:02→20:27)
[2019-10-17] MEDS: piperacillin-tazobactam 3.375 GM in sodium chloride 0.9% (plus) 50 ML IV (08:02)
--- NOTE | 2019-10-17 08:08 | PC.NURSE ---
Patient requested medication for pain. Isotope Technician explained that the Tramadol she had ordered q8 hours could not be given again until 1100. Patient became slightly upset and said she needed to speak to the doctor. Isotope Technician informed patient that the physician usually starts rounding around 10 am and he should be in to see her anytime after that depending on his schedule. Patient asked if the doctor had a phone and if I could call him to see if she could have something else for pain. Isotope Technician explained that after reviewing her chart it was reported by the doctor that he would need to verify what exactly she takes at home for pain. Patient states I told them I take Hydrocodone every 4 hours . Isotope Technician inquired more about who prescribes this medication and where she picks it up at. Patient stated I don't . When asking for clarification patient stated I don't pick it up from anywhere . When poem writer asked where she got the medication patient did not answer. Isotope Technician asked if she got this medication from someone else it had been prescribed to and patient said yes.
[2019-10-17] MEDS: levothyroxine 50 mcg Tablet PO (09:34)
[2019-10-17] MEDS: atorvastatin 40 mg Tablet 20 MG PO (09:34)
[2019-10-17] MEDS: folic acid 1 mg Tablet PO (09:34)
[2019-10-17] MEDS: gabapentin 300 mg Capsule PO ×3 (09:34→20:26)
[2019-10-17] MEDS: thiamine 100 mg Tablet PO (09:35)
[2019-10-17] MEDS: sertraline 50 mg Tablet PO (09:35)
[2019-10-17] MEDS: multivitamin therapeutic Tablet 1 TAB PO (09:35)
[2019-10-17] MEDS: nicotine 21 mg Patch 1 PATCH TRANSDERMA (09:35)
[2019-10-17 11:36] VITALS: BP 150/98; RESP 20; TEMP 36.7; O2SAT 98
[2019-10-17] MEDS: pantoprazole 40 mg SDV IVP (12:57)
[2019-10-17] MEDS: potassium chloride ER 10 mEq Tablet 40 MEQ PO (13:26)
--- NOTE | 2019-10-17 14:16 | P.PN_ITS ---
Subjective Subjective: Interval history: No acute events overnight. Patient has remained stable. Denies any nausea, vomiting, headache, dizziness. States she is doing a lot better. Patient is been eating well. Hemoglobin has remained stable. Vitals/I&O/Wt Last Vital Signs Temp 98.0 F 10/17/19 11:36 Pulse 76 10/17/19 07:20 Resp 20 H 10/17/19 11:36 BP 150/98 10/17/19 11:36 Pulse Ox 98 10/17/19 11:36 10/16/19 10/17/19 10/17/19 22:59 06:59 14:59 Intake Total 520 / 1951 290 / 2241 840 / 840 Output Total 850 / 850 Balance -330 / 1101 290 / 1391 840 / 840 Weight last 48 hrs Weight 59.693 kg Weight 50.712 kg Physical Exam Narrative: EXAM NARRATIVE: General: AO x3, mildly dehydrated, mildly weak HEENT: PERRLA, pupils bilaterally equal and reactive Chest: Normal vesicular breath sounds, no added sounds, equal good air entry bilaterally CVS: S1-S2 regular, no murmurs, no tachycardia, no gallops, no rubs Abdomen: Soft, nontender, no organomegaly, bowel sounds present Neuro: Moving all limbs appropriately, 4 / 5, pupils bilaterally equal and reactive Urinary Catheter Management^: Ramos: Cath Placed During This Visit: yes, but has since been removed by the nurse Reason for Continuing Indwelling Catheter: Accurate Measurement of Urinary Output in Critically Ill Patients Urinary Catheter Date of Insertion: 10/14/19 Urinary Catheter Time of Insertion: 11:45 Date Urinary Catheter Removed: 10/16/19 Time Urinary Catheter Discontinued: 08:30 Data : 10/16/19 02:55 10/16/19 02:55 Micro: Microbiology 10/14/19 11:45 Blood Culture - Preliminary Blood Coagulase negativ staphylococc A&P Assessment and plan (1) Acute blood loss anemia: Status: Acute (2) Acute GI bleeding: Status: Acute (3) On mechanically assisted ventilation: Status: Acute (4) Alcohol abuse: Status: Acute (5) IAN (acute kidney injury): Status: Acute (6) High anion gap metabolic acidosis: Status: Acute (7) Lactic acidosis: Status: Acute (8) GERD (gastroesophageal reflux disease): Status: Acute Qualifiers: Esophagitis presence: esophagitis presence not specified Qualified Code(s): K21.9 - Gastro-esophageal reflux disease without esophagitis (9) COPD (chronic obstructive pulmonary disease): Status: Chronic Qualifiers: COPD type: unspecified COPD Qualified Code(s): J44.9 - Chronic obstructive pulmonary disease, unspecified Additional A&P Information 59-year-old female past medical history of alcohol abuse presented to the ER in unresponsive state when she was found on the floor by EMS covered in coffee- ground emesis and bloody bowel movement. Hemoglobin in the ER 6. Acute blood loss anemia: Most likely GI bleed. No coagulopathy. Platelets normal. CT abdomen, liver ultrasound results appreciated. Dr. Henderson recommendations appreciated. Patient is post EGD, clipping of polypoid lesion in the stomach. Patient is post 2 units PRBC transfusion. Hemoglobin stable. Continue with Protonix, Zofran. Continue with GI soft diet. For now continue with Zosyn. Day 4 today. 1 out of 4 sets positive for coag negative staph. Most likely contaminant. We will stop antibiotics today as patient has remained afebrile. Check hemoglobin hematocrit every 12 hourly. Altered mental status: Most likely from acute blood loss anemia but cannot rule out seizure from alcohol withdrawal as her alcohol level in the ER was negative. Continue with Keppra 500 mg twice daily. Cannot rule out seizure. Prolactin within normal limits. History of alcohol abuse: Patient tolerating oral diet well. Stop IV fluids Encouraged to take more orally. Seizure precautions, fall precautions. CIWA protocol. Mechanical ventilation: Extubated today on October 14. IAN: Resolved. Most likely because of severe dehydration. Baseline creatinine 0.9. Continue IV hydration as above. Continue monitor BMP daily. Medical reconciliation for nephrotoxic drugs. GERHARD Ramos. High anion gap acidosis: Resolved. Most likely because of IAN, lactic acidosis, starvation ketosis. Continue with IV fluids as above. We will continue to monitor. High blood pressure: Goal blood pressure less than 140/90 mmHg. Start patient on amlodipine 10 mg daily. COPD: Keep saturation over 90%. DuoNebs every 6 hours, budesonide twice daily. Elevated troponins: EKG within normal limits. Troponin trend normal. Patient has remained chest pain-free. We will start her on her chronic medications of trazodone 100 mg at bedtime, sertraline but at a lower dose of 50 mg daily, gabapentin at a lower dose of 300 mg p.o. 3 times daily along with Xanax 0.25 twice daily as needed. Patient asking for pain medications. She states she takes [place] every 4 hours. [place] not available in her home medication list through pharmacy. For now we will start her on home dose of Zanaflex and tramadol 50 mg p.o. every 8 hours as needed. Patient complain of extreme weakness and difficulty to stand up. Physical therapy evaluation appreciated. Patient wants to go to [facility] care coordination for further assistance for SNF placement for safe discharge. Full code. GI soft diet. Protonix SCDs, no Lovenox or heparin given GI bleed requiring transfusion. Transfer to floor. Attestations Medical Necessity Statement*: Acute blood loss anemia, awaiting SNF placement for safe discharge. Time Spent in Patient Care: Greater than 35 minutes (>than 50% of time spent in counselling and/or direct pt care on unit) . Coding Level of Care Code Acute Wire Bender for [facility] Diagnoses Acute blood loss anemia D62 Acute GI bleeding K92.2 On mechanically assisted ventilation Z99.11 Alcohol abuse F10.10 IAN (acute kidney injury) N17.9 High anion gap metabolic acidosis E87.2 Lactic acidosis E87.2 GERD (gastroesophageal reflux disease) K21.9 Esophagitis presence: esophagitis presence not specified COPD (chronic obstructive pulmonary disease) J44.9 COPD type: unspecified COPD
[2019-10-17 15:29] VITALS: BP 160/96; PULSE 101; RESP 18; TEMP 37.2; O2SAT 94
[2019-10-17] MEDS: amlodipine 10 mg Tablet PO (16:06)
[2019-10-17 20:00] VITALS: BP 153/75; PULSE 92; RESP 20; TEMP 37.2; O2SAT 98
[2019-10-17] MEDS: acetaminophen 500 mg Tablet PO (20:26)
[2019-10-17] MEDS: trazodone 100 mg Tablet PO (20:27)
[2019-10-17] MEDS: tizanidine 4 mg Tablet 2 MG PO (21:21)
[2019-10-18] VITALS: BP 149/68; PULSE 89; RESP 19; TEMP 37.1; O2SAT 98
[2019-10-18] MEDS: pantoprazole 40 mg SDV IVP (00:42)
[2019-10-18 04:00] VITALS: BP 111/80; PULSE 80; RESP 17; TEMP 36.6; O2SAT 97
[2019-10-18 04:37] LABS: Basophils % 0.4 %; Eosinophils # 0.5 10^3/uL (0.0-0.8); Eosinophils % 4.6 %; Hematocrit 27.7 % (37.0-47.0); Hemoglobin 9.3 g/dL (11.5-15.3); Lymphocytes # 2.3 10^3/uL (0.8-4.8); Lymphocytes % 23.1 %; Mean Corpuscular HGB Conc 33.6 g/dL (30.0-36.0); Mean Corpuscular Hemoglobin 31.7 pg (28.0-34.0); Mean Corpuscular Volume 94.5 fL (81-99); Mean Platelet Volume 9.7 fL (7.4-10.4); Monocytes # 0.5 10^3/uL (0.2-0.9); Monocytes % 5.1 %; Neutrophils # 6.53 10^3/uL (1.8-7.7); Neutrophils % 66.3 %; Nucleated Red Blood Cells % 0.2 %; Platelet Count 260 10^3/cmm (130-400); Red Blood Count 2.93 10^6/uL (4.1-5.3); Red Cell Distribution Width 15.6 % (12.1-15.1); White Blood Count 9.8 10^3/uL (4.0-10.0)
[2019-10-18] MEDS: TRAMadol 50 mg Tablet PO ×3 (04:51→21:02)
[2019-10-18 04:58] LABS: Alanine Aminotransferase 17 U/L (0-33); Albumin Level 3.4 g/dL (3.5-5.2); Alkaline Phosphatase 54 IU/L (35-105); Anion Gap 10.9 (5-19); Aspartate Amino Transferase 18 U/L (0-32); Blood Urea Nitrogen 7 mg/dL (6-20); Calcium 8.4 mg/dL (8.5-10.5); Carbon Dioxide 22 mmol/L (22-29); Chloride 111 mmol/L (98-107); Globulin 2.9 g/dL (1.3-4.6); Glomerular Filtration Rate 86.2 mL/min (90-130); Glucose 88 mg/dL (65-115); Osmolality Calculated 285 mOsm/kg (285-295); Potassium 3.9 mmol/L (3.5-5.1); Sodium 140 mmol/L (136-145); Total Bilirubin 0.2 mg/dL (0.15-1.2); Total Protein 6.3 g/dL (6.6-8.7)
[2019-10-18 05:38] VITALS: BMI 21.2
[2019-10-18 08:00] VITALS: BP 122/88; PULSE 99; RESP 20; TEMP 37; O2SAT 96
[2019-10-18] MEDS: amlodipine 10 mg Tablet PO (08:32)
[2019-10-18] MEDS: levETIRAcetam 500 mg Tablet PO ×2 (08:32→21:02)
[2019-10-18] MEDS: atorvastatin 40 mg Tablet 20 MG PO (08:33)
[2019-10-18] MEDS: nicotine 21 mg Patch 1 PATCH TRANSDERMA (08:34)
[2019-10-18] MEDS: levothyroxine 50 mcg Tablet PO (08:34)
[2019-10-18] MEDS: multivitamin therapeutic Tablet 1 TAB PO (08:34)
[2019-10-18] MEDS: sertraline 50 mg Tablet PO (08:34)
[2019-10-18] MEDS: gabapentin 300 mg Capsule PO ×3 (08:34→21:02)
[2019-10-18] MEDS: folic acid 1 mg Tablet PO (08:34)
[2019-10-18] MEDS: potassium chloride ER 10 mEq Tablet 40 MEQ PO (08:34)
[2019-10-18] MEDS: thiamine 100 mg Tablet PO (08:35)
--- NOTE | 2019-10-18 11:31 | PC.NURSE ---
Boardinghouse Keeper was called into patient's room by VENANCIO for assistance. Patient demanding that she be able to go outside and get some some sun, some radiation . Patient was instructed it was against hospital policy to let a patient leave the floor with IV access. Patient said we could just take the IV out. Boardinghouse Keeper told patient that a perfectly good Iv was not going to be taken out especially since it was just replaced last night. Patient upset but agreed. VENANCIO came back out of patient's room and informed this nurse that she was refusing to have her vitals taken. Will continue to monitor.
--- NOTE | 2019-10-18 11:42 | USCV_ITS ---
Alina Young Age: 59 Gender: F : 1960 Exam Date: 10/18/2019 14:10 Ordering Phys: Chele Cano MD Technologist: Sandra Ziegler Exam Location: [facility] [place] Indication: syncope BP: / HR: 86 Rhythm: Sinus Technical Quality: Technically difficult study MEASUREMENTS (Male / Female) Normal Values 2D ECHO LV Diastolic Diameter PLAX 2.7 cm 4.2 - 5.9 / 3.9 - 5.3 cm LV Systolic Diameter PLAX 1.3 cm LV Chamber Size 2.6 cm IVS Diastolic Thickness 1.5 cm 0.6 - 1.0 / 0.6 - 0.9 cm IVS Systolic Thickness 1.7 cm LVPW Diastolic Thickness 1.5 cm 0.6 - 1.0 / 0.6 - 0.9 cm LVPW Systolic Thickness 1.8 cm RV Chamber Size 2.1 cm LVOT Diameter 2.0 cm LV Ejection Fraction 2D Teich 85.0 % LV Ejection Fraction MOD 2C 71.4 % LV Ejection Fraction 2C AL 72.1 % LA Diameter 2.6 cm LA Width 1.6 cm LA Height 3.0 cm RA Width 2.3 cm RA Height 2.8 cm M-MODE LV Diastolic Diameter MM 3.7 cm 4.2 - 5.9 / 3.9 - 5.3 cm LV Systolic Diameter MM 2.4 cm LV Ejection Fraction MM Teich 66.5 % IVS Diastolic Thickness MM 1.3 cm 0.6 - 1.0 / 0.6 - 0.9 cm IVS Systolic Thickness MM 1.4 cm LVPW Diastolic Thickness MM 1.4 cm 0.6 - 1.0 / 0.6 - 0.9 cm LVPW Systolic Thickness MM 1.6 cm Aortic Annulus Diameter 3.3 cm LA Ao Ratio MM 0.8 MV E Point Septal Separation 1.3 cm DOPPLER AV Peak Velocity 135.0 cm/s LVOT Peak Velocity 119.0 cm/s AV Area Cont Eq vti 3.4 cm squared AV Area Cont Eq pk 2.8 cm squared MV Area PHT 4.6 cm squared Mitral E to A Ratio 0.6 MV E' Velocity 12.0 cm/s Mitral E to MV E' Ratio 7.1 Mitral E to LV E' Lateral Ratio 6.6 Mitral E to LV E' Septal Ratio 7.8 TR Peak Velocity 198.0 cm/s TR Peak Gradient 15.7 mmHg TV Peak E Velocity 43.0 cm/s Right Atrial Pressure 3.0 mmHg Pulmonary Artery Systolic Pressu 18.7 mmHg PV Peak Velocity 57.0 cm/s RV Acceleration Time 0.2 s RV Ejection Time 0.3 s RV AcT/ET 0.6 FINDINGS Left Ventricle Normal left ventricular size and systolic function, EF 59 %. Mild left ventricular hypertrophy. Grade I/IV diastolic dysfunction (abnormal relaxation filling pattern), normal to mildly elevated filling pressures. Right Ventricle Normal right ventricular size and systolic function. Right Atrium Normal right atrial size. Left Atrium Normal left atrial size. Mitral Valve Moderate mitral annular calcification. Aortic Valve Minimally thickened Tricuspid Valve No gross abnormalities noted Pulmonic Valve Pulmonic valve not well visualized. Pericardium Trivial pericardial effusion. Aorta Normal aortic annulus size. CONCLUSIONS Normal left ventricular size and systolic function, EF 59 %. Mild left ventricular hypertrophy. Grade I/IV diastolic dysfunction (abnormal relaxation filling pattern), normal to mildly elevated filling pressures. Moderate mitral annular calcification. Minimally thickened aortic valve There is no pericardial effusion. There are no intracardiac masses. Compared to the study from 05/03/2018, there may not be a significant change Dr Olegario Lagos MD [facility] (Electronically Signed) Final Date: 18 October 2019 18:51 S
--- NOTE | 2019-10-18 11:42 | USCV_ITS ---
Alina Young Age: 59 Gender: F : 1960 Exam Date: 10/18/2019 13:48 Ordering Phys: Chele Cano MD Technologist: ILAN BEACH Exam Location: [facility] [place] Indication: syncope Risk Factors: Previous Vascular Surgery: Right Brachial BP: / Left Brachial BP: / Right Left Velocity (cm/s) Spectral Plaque Velocity (cm/s) Spectral Plaque Syst/Diast Broadening Syst/Diast Broadening 80.70/ 16.50 Prox CCA 102.50/ 24.80 77.60/ 17.10 Mid CCA 76.90 / 25.60 50.60/ 17.70 Distal CCA 62.90 / 21.00 69.40/ 24.30 Prox ICA 87.00 / 22.50 62.20/ 20.50 Mid ICA 91.70 / 34.20 43.40/ 23.00 Distal ICA 77.70 / 35.70 84.80 ECA 94.00 0.80 ICA/CCA 1.19 Antegrade Vertebral Antegrade 52.60/ 17.10 cm/s 78.10/ 23.90 cm/s Tri Subclavian Tri 65.10 90.10 FINDINGS Mild to moderate heterogeneous plaques at the right bifurcation Moderate heterogeneous plaques at the left bifurcation Intimal thickening in the common carotid arteries bilaterally Antegrade flow in the vertebral arteries bilaterally CONCLUSIONS 1.Moderate heterogeneous plaques at the left bifurcation with velocity elevation consistent with 16-49% stenosis. 2.Mild to moderate heterogeneous plaques at the right bifurcation No previous studies are available for comparison. Dr Olegario Lagos MD [facility] (Electronically Signed) Final Date: 18 October 2019 20:12 S
--- NOTE | 2019-10-18 14:43 | P.PN_ITS ---
Subjective Subjective: Interval history: This morning patient was seen sitting in bed,She tells me she is doing much better, no fevers, no chills, no nausea, no hemoptysis, no hematemesis, no bloody or black stools Patient still complains of lightheadedness and dizziness when changing positions She tells me that she chronically has a lightheadedness and dizziness, typically occurs when changing positions, describes syncopal episodes, completely blacking out at times, tells me that this is what she thinks brought her in, as she does not remember anything, and she typically blacks out when changing position and associate lightheadedness and dizziness. Patient denies a history of strokes, no focal neurologic deficits, no paresthesias, no cardiac history, no palpitations, does report she does become lightheaded and dizzy when tossing in bed or changing head position does have bilateral tinnitus. Patient is tells me that she has a knot in the back of her head from a fall that she is worried about, states that after her fall in September, she had an intense headache for a few weeks, that is why she was taking excessive amounts of Excedrin for her headaches Vitals/I&O/Wt Last Vital Signs Temp 98.6 F 10/18/19 08:00 Pulse 99 10/18/19 08:00 Resp 20 H 10/18/19 08:00 BP 122/88 10/18/19 08:00 Pulse Ox 96 10/18/19 08:00 10/17/19 10/18/19 10/18/19 22:59 06:59 14:59 Intake Total 360 / 1200 240 / 240 Balance 360 / 1200 240 / 240 Weight last 48 hrs Weight 59.693 kg Weight 59.693 kg Physical Exam Const: COMMON NORMALS: no acute distress and patient oriented x3 HENMT: COMMON NORMALS: normocephalic HEAD & SCALP: normocephalic Neck/C-Spine: COMMON NORMALS: no JVD Resp: COMMON NORMALS: normal respiratory effort, No retractions, No use of accessory muscles and clear to auscultation bilaterally AUSCULTATION: clear to auscultation bilaterally Cardio: COMMON NORMALS: no JVD, regular rate, regular rhythm, S1 normal heart sound present and S2 normal heart sound present RATE: regular rate RHYTHM: regular rhythm HEART SOUNDS: S1 normal heart sound present and S2 normal heart sound present GI: COMMON NORMALS: Normal to inspection, nondistended, normoactive bowel sounds present, Soft to palpation, non-tender, No hepatosplenomegaly present, no masses and no bruits PALPATION: Yes Soft to palpation and Yes No hepatosplenomegaly present Extremity: COMMON NORMALS: capillary refill normal, no clubbing, cyanosis or edema, no calf tenderness and no pedal edema Neuro: COMMON NORMALS: patient oriented x3 Urinary Catheter Management^: Ramos: Cath Placed During This Visit: yes, but has since been removed by the nurse Reason for Continuing Indwelling Catheter: Accurate Measurement of Urinary Output in Critically Ill Patients Urinary Catheter Date of Insertion: 10/14/19 Urinary Catheter Time of Insertion: 11:45 Date Urinary Catheter Removed: 10/16/19 Time Urinary Catheter Discontinued: 08:30 Data : 10/18/19 04:20 10/18/19 04:20 A&P Assessment and plan (1) Acute blood loss anemia: Status: Acute (2) Acute GI bleeding: Status: Acute (3) On mechanically assisted ventilation: Status: Acute (4) Alcohol abuse: Status: Acute (5) IAN (acute kidney injury): Status: Acute (6) High anion gap metabolic acidosis: Status: Acute (7) Lactic acidosis: Status: Acute (8) GERD (gastroesophageal reflux disease): Status: Acute Qualifiers: Esophagitis presence: esophagitis presence not specified Qualified Code(s): K21.9 - Gastro-esophageal reflux disease without esophagitis (9) COPD (chronic obstructive pulmonary disease): Status: Chronic Qualifiers: COPD type: unspecified COPD Qualified Code(s): J44.9 - Chronic obstructive pulmonary disease, unspecified Additional A&P Information 59-year-old female past medical history of alcohol abuse presented to the ER in unresponsive state when she was found on the floor by EMS covered in coffee- ground emesis and bloody bowel movement. Hemoglobin in the ER 6. Acute blood loss anemia: Secondary to GI bleed CT abdomen, liver ultrasound no acute findings Dr. Henderson recommendations appreciated. Patient is post EGD, clipping of polypoid lesion in the stomach. Patient is post 2 units PRBC transfusion. Hemoglobin stable. 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 fib events -will likely require an event monitor on discharge Continue with GI soft diet. For now continue with Zosyn. Day 5 today. 1 out of 4 sets positive for coag negative staph. Most likely contaminant. We will stop antibiotics today as patient has remained afebrile. Check hemoglobin hematocrit every 6 hourly. Altered mental status: Most likely from acute blood loss anemia but cannot rule out seizure from alcohol withdrawal as her alcohol level in the ER was negative. Continue with Keppra 500 mg twice daily. Cannot rule out seizure. Prolactin within normal limits. History of alcohol abuse: Patient tolerating oral diet well. Encouraged to take more orally. Seizure precautions, fall precautions. CIWA protocol. Mechanical ventilation: Extubated today on October 14. IAN: Resolved. Most likely because of severe dehydration. Baseline creatinine 0.9. Continue monitor BMP daily. Medical reconciliation for nephrotoxic drugs. GERHARD Ramos. High anion gap acidosis: Resolved. Most likely because of IAN, lactic acidosis, starvation ketosis. Continue with IV fluids as above. We will continue to monitor. High blood pressure: Goal blood pressure less than 140/90 mmHg. Start patient on amlodipine 10 mg daily. COPD: Keep saturation over 90%. DuoNebs every 6 hours, budesonide twice daily. Elevated troponins: EKG within normal limits. Troponin trend normal. Patient has remained chest pain-free. We will start her on her chronic medications of trazodone 100 mg at bedtime, sertraline but at a lower dose of 50 mg daily, gabapentin at a lower dose of 300 mg p.o. 3 times daily along with Xanax 0.25 twice daily as needed. Patient asking for pain medications. She states she takes [place] every 4 hours. [place] not available in her home medication list through pharmacy. For now we will start her on home dose of Zanaflex and tramadol 50 mg p.o. every 8 hours as needed. Patient complain of extreme weakness and difficulty to stand up. Physical therapy evaluation appreciated. Patient wants to go to [facility]. Will consult care coordination for further assistance for SNF placement for safe discharge. Full code. GI soft diet. Protonix SCDs, no Lovenox or heparin given GI bleed requiring transfusion. Transfer to floor. Attestations Medical Necessity Statement*: patient requires continued hospitalization due to GI bleed and syncope Coding Level of Care Code Acute Structural Draftsman for [facility] Fwd Diagnoses Acute blood loss anemia D62 Acute GI bleeding K92.2 On mechanically assisted ventilation Z99.11 Alcohol abuse F10.10 IAN (acute kidney injury) N17.9 High anion gap metabolic acidosis E87.2 Lactic acidosis E87.2 GERD (gastroesophageal reflux disease) K21.9 Esophagitis presence: esophagitis presence not specified COPD (chronic obstructive pulmonary disease) J44.9 COPD type: unspecified COPD
[2019-10-18 16:00] VITALS: BP 104/71; PULSE 102; RESP 20; TEMP 36.8; O2SAT 97
[2019-10-18 16:17] VITALS: BP 101/66; PULSE 90; RESP 18; TEMP 36.8; O2SAT 95
[2019-10-18] MEDS: pantoprazole DR 40 mg Tablet PO (18:00)
[2019-10-18 18:17] LABS: Hematocrit 27.3 % (37.0-47.0); Hemoglobin 8.8 g/dL (11.5-15.3)
[2019-10-18 20:00] VITALS: BP 146/96; PULSE 96; RESP 20; TEMP 36.9; O2SAT 97
[2019-10-18] MEDS: trazodone 100 mg Tablet PO (21:02)
[2019-10-18] MEDS: ALPRAZolam 0.25 mg Tablet PO (21:06)
[2019-10-18 21:23] LABS: Glucose Point of Care 142 mg/dL (70-110)
[2019-10-19] VITALS: BP 125/78; PULSE 80; RESP 20; TEMP 36.8; O2SAT 96
[2019-10-19 00:46] LABS: Hematocrit 29.5 % (37.0-47.0); Hemoglobin 9.6 g/dL (11.5-15.3)
[2019-10-19 04:00] VITALS: BP 116/76; PULSE 88; RESP 20; TEMP 36.4; O2SAT 94
[2019-10-19 05:21] LABS: Basophils % 0.5 %; Eosinophils # 0.4 10^3/uL (0.0-0.8); Eosinophils % 4.7 %; Hematocrit 30.6 % (37.0-47.0); Lymphocytes # 2.2 10^3/uL (0.8-4.8); Lymphocytes % 24.5 %; Mean Corpuscular HGB Conc 32.7 g/dL (30.0-36.0); Mean Corpuscular Hemoglobin 31.2 pg (28.0-34.0); Mean Corpuscular Volume 95.3 fL (81-99); Mean Platelet Volume 9.6 fL (7.4-10.4); Monocytes # 0.5 10^3/uL (0.2-0.9); Monocytes % 6.2 %; Neutrophils # 5.57 10^3/uL (1.8-7.7); Neutrophils % 63.4 %; Nucleated Red Blood Cells % 0 %; Platelet Count 318 10^3/cmm (130-400); Red Blood Count 3.21 10^6/uL (4.1-5.3); Red Cell Distribution Width 15.7 % (12.1-15.1); White Blood Count 8.8 10^3/uL (4.0-10.0)
[2019-10-19 05:42] LABS: INR 0.92 (0.8-1.2)
[2019-10-19 05:51] LABS: Alanine Aminotransferase 18 U/L (0-33); Albumin Level 3.5 g/dL (3.5-5.2); Alkaline Phosphatase 54 IU/L (35-105); Anion Gap 13.1 (5-19); Aspartate Amino Transferase 18 U/L (0-32); Blood Urea Nitrogen 11 mg/dL (6-20); Calcium 9.1 mg/dL (8.5-10.5); Carbon Dioxide 25 mmol/L (22-29); Chloride 108 mmol/L (98-107); Globulin 3.1 g/dL (1.3-4.6); Glomerular Filtration Rate 86.2 mL/min (90-130); Glucose 95 mg/dL (65-115); Magnesium 2.1 mg/dL (1.7-2.3); Osmolality Calculated 290 mOsm/kg (285-295); Phosphorus 4.3 mg/dL (2.5-4.5); Potassium 4.1 mmol/L (3.5-5.1); Sodium 142 mmol/L (136-145); Total Bilirubin 0.2 mg/dL (0.15-1.2); Total Protein 6.6 g/dL (6.6-8.7)
[2019-10-19] MEDS: TRAMadol 50 mg Tablet PO (07:52)
[2019-10-19] MEDS: levETIRAcetam 500 mg Tablet PO (07:52)
[2019-10-19 08:00] VITALS: BP 100/67; PULSE 104; RESP 17; TEMP 36.5; O2SAT 97
[2019-10-19] MEDS: nicotine 21 mg Patch 1 PATCH TRANSDERMA (08:02)
[2019-10-19] MEDS: levothyroxine 50 mcg Tablet PO (08:03)
[2019-10-19] MEDS: folic acid 1 mg Tablet PO (08:03)
[2019-10-19] MEDS: sertraline 50 mg Tablet PO (08:03)
[2019-10-19] MEDS: multivitamin therapeutic Tablet 1 TAB PO (08:04)
[2019-10-19] MEDS: gabapentin 300 mg Capsule PO (08:04)
[2019-10-19] MEDS: atorvastatin 40 mg Tablet 20 MG PO (08:04)
[2019-10-19] MEDS: pantoprazole DR 40 mg Tablet PO (08:04)
[2019-10-19] MEDS: amlodipine 10 mg Tablet PO (08:04)
[2019-10-19] MEDS: thiamine 100 mg Tablet PO (08:04)
[2019-10-19] MEDS: potassium chloride ER 10 mEq Tablet 40 MEQ PO (08:04)
--- NOTE | 2019-10-19 10:43 | PC.CHAP ---
Pastoral Care Encounter/Spiritual Assessment Type of Contact [] Declined liquor establishment manager visit [] Patient/Family/Request visit [] Outpatient visit [] Follow-up visit [] Physician referral [] Code/Alert [X] Routine visit [] Staff referral [] Actively dying [] Patient sleeping [] Family support [] [] Out of room [] Palliative care [] [x] Receiving care in room [] Pre-surgical visit [] Trauma [] Long length of stay [] ICU visit [] Other: Relational/Emotional Strength [] Patient feels connected with others/family/visitors/staff [x] Distress [] Loneliness/isolation [] Abandonment Spirituality of Patient [x] Person of Mandie [] Attends Caodaism of their Mandie [x] Believes in Prayer [] Reads Bible or Restorationist materials [] There are Spiritual issues to be addressed Instructional Technology Facilitator Interventions [x] Prayer [x] Active listening [x] Non-anxious presence [x] Spiritual/emotional support [] Crisis/trauma care [x] Spiritual counseling [] Bereavement support [] Provided bereavement packet [] Provided Bible/devotional materials [] Provided toy/stuffed animal, coloring book to patient or family member [] Provided Communion [] Anointing/[place] [] Salvation [x] Completed spiritual assessment [] Other: Impact on Illness or Injury [x] Angry [] Fearful [x] Anxious [] Often cries [] Exhaustion [] Unable to work [] Unable to attend mormonism [] Unable to walk/stand [] Unable to read [] Unable to drive [] Unable to eat/drink [] Unable to sleep [] Unable to be with family [] Patient intubated [] Other: Summary She is upset, loss of blood, passes out from time to time sees things, does know about the tests, able to communicate her feelings Time spent with patient 10 mins
[2019-10-19 11:25] VITALS: BP 98/62; PULSE 96; RESP 18; TEMP 36.9; O2SAT 95
--- NOTE | 2019-10-19 14:44 | PM.DCS ---
Discharge Providers Date of Admission: 10/14/19 15:35 Date of Discharge: October 19, 2019 Attending Provider at Admission: Song Jaramillo MD Attending Provider at Discharge: Chele Cano MD Primary Care Provider: RODOLFO Sneed Diagnoses at Discharge Discharge Diagnosis (1) Acute blood loss anemia: Status: Acute (2) Acute GI bleeding: Status: Acute (3) On mechanically assisted ventilation: Status: Acute (4) Alcohol abuse: Status: Acute (5) IAN (acute kidney injury): Status: Acute (6) High anion gap metabolic acidosis: Status: Acute (7) Lactic acidosis: Status: Acute (8) GERD (gastroesophageal reflux disease): Status: Acute Qualifiers: Esophagitis presence: esophagitis presence not specified Qualified Code(s): K21.9 - Gastro-esophageal reflux disease without esophagitis (9) COPD (chronic obstructive pulmonary disease): Status: Chronic Qualifiers: COPD type: unspecified COPD Qualified Code(s): J44.9 - Chronic obstructive pulmonary disease, unspecified Reason for Visit Reason for Visit: GI BLEED Hospital Course Discharge Summary: This is a 59-year-old female with a past medical history of COPD, current smoker, alcohol abuse, GERD, vitamin D deficiency, anxiety, hypothyroidism, vitamin D deficiency who was brought in to by EMS as she was found unresponsive on the ground covered in coffee-ground emesis and with a bloody bowel movement In the ER patient was intubated, found to be hypotensive, hemoglobin 6.1, lactic acid 4.7, INR 0.9, patient was admitted to the intensive care unit for acute hemorrhagic shock secondary to GI bleed, surgery was consulted through the ER, she received blood, IV Protonix, started on broad-spectrum antibiotics, kept n.p.o., received banana bag, IV folate thiamine, patient had a EGD by Dr. Kelly showed a polypoid lesion in the stomach, status post clipping, received total of 2 units PRBC. Patient clinically improved, successfully extubated, mentation was back to baseline, she was moved out of the ICU According to patient, 2 weeks ago she was having episodes of lightheadedness, dizziness, falls, and she hit her head, she subsequently developed a headache, lasting for over a week, thus she was using Excedrin and other NSAIDs for headaches,. Thus likely patient had an upper GI bleed associated with NSAID use, patient's hemoglobin remained stable between 9-10 throughout her admission, no repeat bloody or black stools or hematemesis. She clinically improved, remained relatively asymptomatic. Patient does have a history of alcohol abuse, no varices noticed on EGD. Patient was advised to abstain from alcohol, abstain from NSAID use, continue Protonix 40 twice daily, folate, thiamine, multivitamin, with a close follow-up with Dr. Kelly in 4 weeks. She will likely require colonoscopy as outpatient as she is 59 and has not had one yet. Throughout her admission, patient's main complaints were lightheadedness, dizziness, resulting in multiple falls, resulting in hitting her head 2 weeks ago that set off a chain events leading to her admission. Etiology of lightheadedness and dizziness were likely associate with her alcohol abuse and perhaps a component of benign positional vertigo, as her symptoms were related to head position. Patient CT of the head did not show an acute infarct, but she did have prior bilateral occipital and parietal lobe infarcts, and encephalomalacia at the area of the prior infarcts. Patient denies any history of strokes in the past, denies knowing that she has had strokes. She had a carotid ultrasound that showed no clinically significant hemodynamic stenosis of bilateral carotid arteries, echocardiogram showed an ejection fraction of 59%, grade 1 out of 4 diastolic dysfunction. Her telemetry monitoring showed no acute arrhythmia events. Patient's B12 levels were found to be low at 171, given her symptomatology of lightheadedness, dizziness, which could be attributed to Wernickies encephalopathy. Thus likely a significant component of patient's symptoms are related to her alcohol consumption, Wernickies encephalopathy, and/or BPPV related. However it is certainly possible that patient could have a cerebellar infarct, she might benefit from an outpatient MRI for which I will have patient follow-up for further evaluation with Dr. Naranjo. Given her CT scan findings of multiple prior infarcts, bilaterally, which suspicious for embolic events related to atrial fibrillation, I will have patient follow-up with cardiology as outpatient for consideration of Holter monitoring. Given patient's hemorrhagic shock from upper GI bleed, I was quite hesitant to reinstitute antiplatelet therapy, I will have patient follow-up with appropriate specialist such as neurology and cardiology for shared decision making about aspirin reinstitution. Physical Exam Urinary Catheter Management^: Ramos: Cath Placed During This Visit: yes, but has since been removed by the nurse Reason for Continuing Indwelling Catheter: Accurate Measurement of Urinary Output in Critically Ill Patients Urinary Catheter Date of Insertion: 10/14/19 Urinary Catheter Time of Insertion: 11:45 Date Urinary Catheter Removed: 10/16/19 Time Urinary Catheter Discontinued: 08:30 Discharge Data Data Completed and Pending: Completed Studies During Hospitalization Category Date Time Status CT abdomen pelvis w con* [id number] Urge nt Cat Scan 10/14/19 12:[address] head wo con* [id number] Stat Cat Scan 10/14/19 11:24 Completed XR chest 1V augustin ble [id number] Routine Exams 10/15/19 11:00 Completed XR chest 1V augustin ble [id number] Stat Exams 10/14/19 11:17 Completed XR chest 1V augustin ble [id number] Stat Exams 10/14/19 13:27 Completed CV carotid duplex BI* [id number] Routine Ultrasound 10/18/19 11:42 Completed CV echo complete* [id number] Routine Ultrasound 10/18/19 11:42 Completed US liver [id number] Ur gent Ultrasound 10/14/19 15:19 Completed Pending at discharge Category Date Time Status Blood Culture Sta t Lab 10/14/19 11:45 Results Complete Blood Co unt w/Auto AM LABS Lab 10/20/19 04:00 Ordered Complete Blood Co unt w/Auto AM LABS Lab 10/21/19 04:00 Ordered Comprehensive Met abolic Panel AM LA BS Lab 10/20/19 04:00 Ordered Comprehensive Met abolic Panel AM LA BS Lab 10/21/19 04:00 Ordered Hemoglobin and He matocrit Q6HR Lab 10/19/19 18:00 Ordered Hemoglobin and He matocrit Q6HR Lab 10/20/19 00:00 Ordered Hemoglobin and He matocrit Q6HR Lab 10/20/19 06:00 Ordered Hemoglobin and He matocrit Q6HR Lab 10/20/19 12:00 Ordered Hemoglobin and He matocrit Q6HR Lab 10/20/19 18:00 Ordered Hemoglobin and He matocrit Q6HR Lab 10/21/19 00:00 Ordered Magnesium AM LABS Lab 10/20/19 04:00 Ordered Magnesium AM LABS Lab 10/21/19 04:00 Ordered Phosphorus AM LAB S Lab 10/20/19 04:00 Ordered Phosphorus AM LAB S Lab 10/21/19 04:00 Ordered Prothrombin Time INR AM LABS Lab 10/20/19 04:00 Ordered Prothrombin Time INR AM LABS Lab 10/21/19 04:00 Ordered Labs from last 24 hours 10/19/19 10/19/19 10/19/19 04:04 04:04 04:04 WBC 8.8 RBC 3.21 L Hgb 10.0 L Hct 30.6 L MCV 95.3 MCH 31.2 MCHC 32.7 RDW 15.7 H Plt Count 318 MPV 9.6 Neut % (Auto) 63.4 Lymph % (Auto) 24.5 Russell % (Auto) 6.2 Eos % (Auto) 4.7 Baso % (Auto) 0.5 Neut # (Auto) 5.57 Lymph # (Auto) 2.2 Russell # (Auto) 0.5 Eos # (Auto) 0.4 Baso # (Auto) 0.0 Nucleated RBC % (a uto) 0 Nucleated RBCs # 0.0 PT 12.60 INR 0.92 Sodium 142 Potassium 4.1 Chloride 108 H Carbon Dioxide 25 Anion Gap 13.1 BUN 11 Creatinine 0.7 GFR Calculation 86.2 L Glucose 95 POC Glucose Calculated Osmolal ity 290 Calcium 9.1 Phosphorus 4.3 Magnesium 2.1 Total Bilirubin 0.2 AST 18 ALT 18 Alkaline Phosphata se 54 Total Protein 6.6 Albumin 3.5 Globulin 3.1 10/19/19 10/18/19 10/18/19 00:23 20:42 17:33 WBC RBC Hgb 9.6 L 8.8 L Hct 29.5 L 27.3 L MCV MCH MCHC RDW Plt Count MPV Neut % (Auto) Lymph % (Auto) Russell % (Auto) Eos % (Auto) Baso % (Auto) Neut # (Auto) Lymph # (Auto) Russell # (Auto) Eos # (Auto) Baso # (Auto) Nucleated RBC % (a uto) Nucleated RBCs # PT INR Sodium Potassium Chloride Carbon Dioxide Anion Gap BUN Creatinine GFR Calculation Glucose POC Glucose 142 Calculated Osmolal ity Calcium Phosphorus Magnesium Total Bilirubin AST ALT Alkaline Phosphata se Total Protein Albumin Globulin Vitals: Last Vital Signs Temp 98.4 F 10/19/19 11:25 Pulse 96 10/19/19 11:25 Resp 18 10/19/19 11:25 BP 98/62 10/19/19 11:25 Pulse Ox 95 10/19/19 11:25 Discharge Plan Discharge Patient Disposition: Xfer [facility] Condition: Stable Prescriptions: New tramadol 50 mg Tablet 50 mg PO Q8H PRN (Reason: Moderate Pain) 5 Days Qty: 10 RF: 0 amlodipine 10 mg Tablet 10 mg PO DAILY 30 Days Qty: 30 RF: 0 pantoprazole 40 mg Tablet,Delayed Release (Dr/Ec) 40 mg PO BID 30 Days Qty: 60 RF: 0 folic acid 1 mg Tablet 1 mg PO DAILY 30 Days Qty: 30 RF: 0 Vitamin B-1 (mononitrate) 100 mg Tablet 100 mg PO DAILY 30 Days Qty: 30 RF: 0 Thera 400 mcg Tablet 1 tab PO DAILY 30 Days Qty: 30 RF: 0 Continued nystatin 100,000 unit/gram cream 1 applic TOPICAL TID 30 Days Qty: 30 RF: 5 hydrocortisone [Anusol-HC] 2.5 % cream with perineal applicator 1 applic [place] BID PRN (Reason: hemorrhoids) 30 Days Qty: 30 RF: 5 albuterol sulfate [ProAir HFA] 90 mcg/actuation HFA aerosol inhaler 2 inh INHALATION Q6H PRN (Reason: shortness of breath or wheezing) Qty: 6.7 RF: 5 atorvastatin [Lipitor] 20 mg tablet 20 mg PO DAILY 30 Days Qty: 30 RF: 5 Symbicort 80-4.5 mcg/actuation HFA aerosol inhaler 2 inh INHALATION BID 30 Days Qty: 6.9 RF: 5 cholecalciferol (vitamin D3) 1,250 mcg (50,000 unit) tablet 50,000 unit PO .twice monthly 30 Days Qty: 2 RF: 5 estradiol [Estrace] 0.01 % (0.1 mg/gram) cream 1 gm VAGINAL .twice weekly 30 Days Qty: 42.5 RF: 5 gabapentin 600 mg tablet 600 mg PO TID 30 Days Qty: 90 RF: 5 famotidine 40 mg tablet 40 mg PO DAILY 30 Days Qty: 30 RF: 5 sertraline [Zoloft] 100 mg tablet 100 mg PO DAILY 30 Days Qty: 30 RF: 5 trazodone 100 mg tablet 100 mg PO DAILY 30 Days Qty: 30 RF: 5 tizanidine 2 mg capsule 2 mg PO TID PRN (Reason: muscle spasticity) 30 Days Qty: 90 RF: 5 chlorhexidine gluconate [Peridex] 0.12 % mouthwash 15 ml BUCCAL BID Qty: 1500 RF: 2 levothyroxine 50 mcg tablet 50 mcg PO DAILY Qty: 30 RF: 2 Held aspirin [Adult Low Dose Aspirin] 81 mg tablet,delayed release (DR/EC) 81 mg PO DAILY 30 Days Qty: 30 RF: 5 Hold Instructions: Resume on 11/09/19. Hold for 3 weeks or until seen by neurology Discontinued celecoxib [Celebrex] 200 mg capsule 200 mg PO BID 30 Days Qty: 60 RF: 5 penicillin V potassium 500 mg tablet 500 mg PO BID Qty: 20 RF: 0 Discharge Orders: Discharge Order (Routine); Ordered 10/19/19 Ordered By: Chele Cano Other Ambulatory Orders: Complete Blood Count w/Auto (Routine) Timeframe: 1 Week Location: Determined by Patient Ordered By: Chele Cano Referrals: [facility] [Outside] Ariella Naranjo MD [Physician] - 11/08/19 3:15 pm Dirk Richards, SHIRT SORTER-C [Primary Care Provider] - 10/26/19 10:40 am Shoaib Kelly MD [Physician] - 11/16/19 1:45 pm Korin Larsen MD [Physician] - 11/02/19 3:00 pm Discharge Diet: Cardiac Discharge Activity: Resume usual activity Patient Instructions: Alcohol Abuse, Thiamine (Vitamin B-1) (By mouth), Folic Acid (By mouth), Amlodipine (By mouth), Tramadol (By mouth), Pantoprazole (By mouth), Vitamin D (By mouth), Acute Kidney Injury (DC), Metabolic Acidosis (GEN), GI Discharge Instructions Activity Restrictions/Additional Instructions: -If you have bloody or black stools or bloody vomit please come back to the emergency room -Please drink plenty of electrolyte balance fluids -Please follow-up with neurology in 1 to 2 weeks for stroke, syncope -Please follow-up with cardiology in 1 to 2 weeks for Holter monitor, A. fib Discharge Attestations Time Spent in Discharge Care*: less than 30 min Quality Metrics Clinical Quality Measures During this hospital stay, did patient experience: None Coding Level of Care Code Acute Compression Molding Machine Operator for Lindseyg Fwd Diagnoses Acute blood loss anemia D62 Acute GI bleeding K92.2 On mechanically assisted ventilation Z99.11 Alcohol abuse F10.10 IAN (acute kidney injury) N17.9 High anion gap metabolic acidosis E87.2 Lactic acidosis E87.2 GERD (gastroesophageal reflux disease) K21.9 Esophagitis presence: esophagitis presence not specified COPD (chronic obstructive pulmonary disease) J44.9 COPD type: unspecified COPD
[2019-10-19 15:01] VITALS: BP 98/62; PULSE 96; RESP 18; TEMP 36.9; O2SAT 95
--- NOTE | 2019-10-19 15:02 | PC.NURSE ---
PATIENT INTRUSIVE AND DEMANDING TO GO HOME. UNWILLING TO WAIT FOR DISCHARGE PAPERWORK OR RIDE HOME. PATIENT IN HALLWAY AND AT NURSES STATION DEMANDING MASK AND TO BE DIRECTED TO THE EXIT. PATIENT UNABLE TO BE REDIRECTED. CHARGE NURSE VERÓNICA PROVIDED DISCHARGE EDUCATION AND WALKED PATIENT TO THE EXIT.
== END 2019-10-19 15:09 | disposition home or self-care (01) | DRG 378 ==
LOC: ER 12:59 → ICU 15:50 → MEDSURG 10-16 15:41
PROVIDERS: Emergency Medicine; Internal Medicine; Surgery; Admitting Provider Student in an Organized Health Care Education/Training Program; PCP Nurse Practitioner; Visit Provider Family Medicine
PROC: 0DJ08ZZ Inspection of Upper Intestinal Tract, Via Natural or Artificial Opening Endoscopic (ICD-10-PCS; CPT 43235; principal; 2019-10-15 11:20)
DX: K29.01 Acute gastritis with bleeding (principal); D62 Acute posthemorrhagic anemia; N17.9 Acute kidney failure, unspecified; E87.2 Acidosis; F10.10 Alcohol abuse, uncomplicated; J44.9 Chronic obstructive pulmonary disease, unspecified; K21.9 Gastro-esophageal reflux disease without esophagitis; E55.9 Vitamin D deficiency, unspecified; F41.8 Other specified anxiety disorders; E03.9 Hypothyroidism, unspecified; M47.816 Spondylosis without myelopathy or radiculopathy, lumbar region; E78.2 Mixed hyperlipidemia; F17.210 Nicotine dependence, cigarettes, uncomplicated; R41.82 Altered mental status, unspecified; R56.9 Unspecified convulsions; E53.8 Deficiency of other specified B group vitamins; Z79.51 Long term (current) use of inhaled steroids; Z79.890 Hormone replacement therapy; Z79.891 Long term (current) use of opiate analgesic
CPT/HCPCS: 12345; 31500; 36415; 36416; 36430; 36556; 36592; 36600; 43236; 51702; 70450; 71045; 74177; 76705; 80051; 80053; 80156; 80164; 80178; 80185; 80306; 80307; 81003; 82140; 82550; 82607; 82746; 82803; 82810; 82962; 83036; 83540; 83550; 83605; 83690; 83735; 83986; 84100; 84145; 84146; 84295; 84443; 84484; 85014; 85018; 85025; 85610; 86705; 86706; 86709; 86803; 86850; 86900; 86920; 87040; 87205; 87340; 87426; 87641; 87806; 93005; 93306; 93880; 94002; 94799; 96365; 96366; 96367; 96372; 96375; 97116; 97161; 97530; 99284; 99291; A4570; C9113; J0171; J0330; J0696; J1756; J1953; J2060; J2250; J2543; J2704; J3010; J3411; J3420; J3480; J3490; J7030; J7799; P9016; Q9967

== ENCOUNTER → 2019-10-26 15:24 | Outpatient (BNVA) | payer MEDICAID, SELFPAY | PROVIDERS: PCP Nurse Practitioner; Visit Provider Nurse Practitioner | DX: D64.9 Anemia, unspecified (principal) | CPT/HCPCS: 85025 ==

== ENCOUNTER → 2019-11-08 12:00 | Outpatient (BNVA) | payer MEDICAID, SELFPAY | PROVIDERS: PCP Nurse Practitioner; Referring Provider Family Medicine; Visit Provider Nurse Practitioner | DX: Z86.73 Personal history of transient ischemic attack (TIA), and cerebral infarction without residual deficits (principal); F17.210 Nicotine dependence, cigarettes, uncomplicated | CPT/HCPCS: 99204 ==

== ENCOUNTER → 2019-12-02 12:24 | Outpatient (BNVA) | payer MEDICAID, SELFPAY | PROVIDERS: PCP Nurse Practitioner; Visit Provider Surgery | DX: Z20.828 Contact with and (suspected) exposure to other viral communicable diseases (principal) | CPT/HCPCS: 87635 ==

== ENCOUNTER 2019-12-06 06:09 | Day surgery (SDC) | payer MEDICAID, SELFPAY ==
[2019-12-03 10:45] VITALS: BMI 21.4
[2019-12-06 06:37] VITALS: BP 114/68; PULSE 85; RESP 18; TEMP 36.2; O2SAT 96
[2019-12-06] MEDS: sodium chloride 0.9% 1,000 ML 30 ML IV (06:40)
--- NOTE | 2019-12-06 06:53 | ANES.PREANE2 ---
Pre-Anesthetic Assessment Pre-Anesthetic Assessment: Height/Weight: Height 1.63 m Weight 56.699 kg Temp Pulse Resp BP Pulse Ox 97.2 F L 85 18 114/68 96 12/06/19 06:37 12/06/19 06:37 12/06/19 06:37 12/06/19 06:37 12/06/19 06:37 Preop Diagnosis: GI bleed Proposed Procedure: Operation Date: 12/06/19 07:30 Proposed Procedures p EGD(Not Applicable) - Shoaib Kelly MD s Colonoscopy(Not Applicable) - Shoaib Kelly MD Was Beta Niya taken within 24 hours: N/A Last intake: Intake Last Liquid Date 11/29/19 Last Liquid Time 21:00 Last Solid Date 12/05/19 Last Solid Time 20:00 Social: Social History: Alcohol and Tobacco Packs per day: 0.5 Pack years: 41 Exam: Pre-Anes Outpt Exam: alert, oriented x 3, clear to auscultation bilaterally and regular rate & rhythm Airway: Submandibular: WNL Cervical ROM: WNL MP: 2 Dentition: Loose Additional comments: very poor dentition Pulmonary: Pulmonary: COPD CV/HEM: CV/HEM: None reported : : Chronic renal Insufficiency Hepatic: Comments: chronic alcoholism GI: GI: None reported Metabolic: Metabolic: Thyroid (hypo) Musc/skel: Musc/skel: Fibromyalgia, Lower Back Pain and OA/DJD Neuropsych: Neuropsych: Anxiety, CVA, Depression and Seizure Comments: generalized weakness after stroke Anesthetic Plan: ASA status: 3 Anesthesia: MAC Risk of > 500 ml blood loss (7ml/kg in children): No PFSH Anesthesia PFSH: Medical History (Updated 11/30/19 @ 19:57 by RODOLFO Sneed) Adult onset hypothyroidism Anxiety and depression Atrophy, vulva Temi vaginitis Caries involving multiple surfaces of tooth COPD (chronic obstructive pulmonary disease) Degenerative disc disease, lumbar GERD (gastroesophageal reflux disease) History of seizure Lumbar spondylosis Mixed hyperlipidemia Rectal irritation Use of cane as ambulatory aid Vitamin D insufficiency Surgical History H/O: hysterectomy History of cholecystectomy History of thyroidectomy, total Family History Other Cancer Diabetes Hypertension Social History Smoking and tobacco status: current every day smoker Second hand smoke exposure: Yes Smoking risk assessment/counseling performed?: Yes Alcohol intake: current Alcohol intake frequency: 0-2 Drinks per Day Alcohol type: hard liquor Desire information about alcohol rehabilitation?: No Counseling given: No Desire information about substance/drug rehabilitation?: No Counseling given: No Adopted: No Caregiver/support person: No Lives independently: Yes Marital status: Single service: No Current occupational status: disabled History of recent travel: No Current gender identity: Female Data Anesthesia Cardiac Studies: No Data to Display
--- NOTE | 2019-12-06 07:02 | W.PM.OPSUD ---
Surgery/Procedure H&P Update DATE OF PROCEDURE: December 06, 2019 DATE H&P PERFORMED: 11/16/19 H&P UPDATE INFORMATION: I have reviewed H&P completed within last 30 days, I have examined patient prior to procedure and No changes to prior documentation PREOP DIAGNOSIS: GI bleed PLANNED PROCEDURE: Operation Date: 12/06/19 07:30 Proposed Procedures p EGD(Not Applicable) - Shoaib Kelly MD s Colonoscopy(Not Applicable) - Shoaib Kelly MD
[2019-12-06 07:43] VITALS: BP 108/69; PULSE 85; RESP 18; TEMP 36.2; O2SAT 95
--- NOTE | 2019-12-06 07:46 | ANE.PACU2 ---
Inpatient post-anesthesia follow up: Airway intact: Yes Vital signs: Temperature 97.2 F Pulse Rate 85 Respiratory Rate 18 Blood Pressure 114/68 Pulse Oximetry 96 Oxygen Delivery Me thod Room Air Oxygen Flow Rate Fraction of Inspir ed Oxygen Hydration adequate: Yes Nausea and vomiting: No Pain level: 1 Mental status: Baseline
== END 2019-12-06 08:08 | disposition home or self-care (01) ==
PROVIDERS: PCP Nurse Practitioner; Visit Provider Surgery
PROC: 0DJ08ZZ Inspection of Upper Intestinal Tract, Via Natural or Artificial Opening Endoscopic (ICD-10-PCS; CPT 43235; principal; 2019-12-06 07:30)
PROC: 0DJD8ZZ Inspection of Lower Intestinal Tract, Via Natural or Artificial Opening Endoscopic (ICD-10-PCS; CPT 45378; 2019-12-06 07:30)
DX: K92.2 Gastrointestinal hemorrhage, unspecified (principal); F17.210 Nicotine dependence, cigarettes, uncomplicated; J44.9 Chronic obstructive pulmonary disease, unspecified; E03.9 Hypothyroidism, unspecified; M79.7 Fibromyalgia; M19.90 Unspecified osteoarthritis, unspecified site; Z86.73 Personal history of transient ischemic attack (TIA), and cerebral infarction without residual deficits; E78.2 Mixed hyperlipidemia
CPT/HCPCS: 12345; 43235; 45378; J2704; J7030

== ENCOUNTER 2019-12-16 11:39 | Outpatient (CLI) | payer MEDICAID, SELFPAY ==
--- NOTE | 2019-12-16 11:45 | USCV_ITS ---
Alina Young Age: 59 Gender: F : 1960 Exam Date: 12/16/2019 11:51 Ordering Phys: John Huertas MSN AGACNP-BC Technologist: Amalia White Exam Location: [facility] [place] Indication: Risk Factors: Previous Vascular Surgery: Right Brachial BP: / Left Brachial BP: / Right Left Velocity (cm/s) Spectral Plaque Velocity (cm/s) Spectral Plaque Syst/Diast Broadening Syst/Diast Broadening 49.60/ 19.80 Prox CCA 78.30 / 26.50 60.60/ 28.70 Mid CCA 59.50 / 25.40 55.10/ 28.70 Distal CCA 58.40 / 25.40 62.80/ 27.60 Prox ICA 67.30 / 33.10 70.60/ 34.20 Mid ICA 65.10 / 36.40 63.90/ 28.70 Distal ICA 100.30/ 48.50 52.90 ECA 56.20 1.16 ICA/CCA 1.69 Antegrade Vertebral Antegrade 61.70/ 26.50 cm/s 63.90/ 25.40 cm/s Tri Subclavian Tri FINDINGS Moderate dense irregular island of plaque at the right bifurcation Moderate heterogeneous plaques of the left bifurcation Intimal thickening in the common carotid arteries bilaterally. Antegrade flow in the vertebral arteries bilaterally. CONCLUSIONS Moderate dense irregular island of plaque at the right bifurcation Moderate heterogeneous plaques of the left bifurcation with elevated velocity ratios consistent with 16-49% stenosis. Intimal thickening in the common carotid arteries bilaterally. Compared to the previous study from 10/18/2019, there may not be a significant change Dr Olegario Lagos MD [facility] (Electronically Signed) Final Date: 17 December 2019 09:38 S
== END 2019-12-16 11:40 | disposition home or self-care (01) ==
LOC: US 11:40
PROVIDERS: PCP Nurse Practitioner; Visit Provider Specialist
DX: I63.9 Cerebral infarction, unspecified (principal)
CPT/HCPCS: 93880

== ENCOUNTER → 2020-02-21 11:28 | Outpatient (BNVA) | payer MEDICAID, SELFPAY | PROVIDERS: PCP Nurse Practitioner; Visit Provider Nurse Practitioner | DX: J44.9 Chronic obstructive pulmonary disease, unspecified (principal); M51.36 Other intervertebral disc degeneration, lumbar region; M47.816 Spondylosis without myelopathy or radiculopathy, lumbar region; E03.8 Other specified hypothyroidism; E78.2 Mixed hyperlipidemia | CPT/HCPCS: 80053; 80061; 84443; 85025 ==

== ENCOUNTER 2020-03-17 10:58 | Outpatient (CLI) | payer MEDICAID, SELFPAY ==
--- NOTE | 2020-03-17 11:04 | MR_ITS ---
WS: [id number] MRI BRAIN WITHOUT CONTRAST HISTORY: I63.9 Cerebral infarction, unspecified COMPARISON: Head CT 10/14/2019 and prior MRI 12/15/2014 TECHNIQUE: Diffusion imaging, multiplanar T1, T2 and FLAIR imaging obtained. No evidence for acute infarct or hemorrhage. Ramirez-white matter differentiation is normal. Stable moderate to large bilateral and symmetric occipital and parietal lobe infarcts. There is encep halomalacia associated with the infarcts and gliosis. Slightly greater involvement on the LEFT. No si gnificant progression of disease is identified. Some of the increased T2 signal and FLAIR signal abno rmalities in the subcortical white matter especially involving the frontal lobes and periventricular white matter have actually improved. This may have been related to an acute vasculitis or demyelinati ng process superimposed on chronic disease. Ventricles and extra-axial spaces are normal. No inferior displacement of cerebellar tonsils. Small bilateral cerebellar infarcts also noted and st able. Dural venous sinuses and tribe of [place] demonstrate no abnormality on this unenhanced studies. Paranasal sinuses: Clear. Mastoid air cells: RIGHT mastoid air cell disease. Coalescence of mastoid air cells on the RIGHT. Calvarium and scalp: Intact. MR/MR head wo con* [id number] IMPRESSION: 1. No acute infarct. 2. Continued remote moderate size bilateral occipital, parietal and smaller in farcts in the cerebellum bilaterally. No progression since the prior study from 2014. There has actually been improvement in some of the subcortical white mat ter changes involving the frontal lobes and deep white matter. Suggesting at th at time there was an acute process superimposed on the chronic disease. 3. Mild atrophy.
== END 2020-03-17 10:59 | disposition home or self-care (01) ==
LOC: RADSHAW 11:01
PROVIDERS: PCP Nurse Practitioner; Visit Provider Nurse Practitioner
DX: I63.9 Cerebral infarction, unspecified (principal); G31.9 Degenerative disease of nervous system, unspecified
CPT/HCPCS: 70551

== ENCOUNTER → 2020-07-20 12:44 | Outpatient (BNVA) | payer MEDICAID, SELFPAY | PROVIDERS: PCP Family Medicine; Visit Provider Family Medicine | DX: J44.9 Chronic obstructive pulmonary disease, unspecified (principal); E78.2 Mixed hyperlipidemia; M51.36 Other intervertebral disc degeneration, lumbar region; E03.8 Other specified hypothyroidism; E55.9 Vitamin D deficiency, unspecified; K21.9 Gastro-esophageal reflux disease without esophagitis; F32.9 Major depressive disorder, single episode, unspecified; M47.816 Spondylosis without myelopathy or radiculopathy, lumbar region; F41.9 Anxiety disorder, unspecified; Z68.21 Body mass index [BMI] 21.0-21.9, adult; F17.210 Nicotine dependence, cigarettes, uncomplicated | CPT/HCPCS: 80053; 80061; 82306; 84443; 85025 ==

== ENCOUNTER 2020-09-21 11:39 | Emergency (ER) | payer MEDICAID, SELFPAY ==
--- NOTE | 2020-09-21 11:43 | CTR_ITS ---
PROCEDURE INFORMATION: Exam: CT Head Without Contrast Exam date and time: 09/21/2020 11:43 AM Age: 60 years old Clinical indication: Injury or trauma; Fall; Blunt trauma (contusions or hematomas); With loss of consciousness; Not specified; Injury date: 2 days ago; Additional info: Fall with +loc TECHNIQUE: Imaging protocol: Computed tomography of the head without contrast. Radiation optimization: All CT scans at this facility use at least one of these dose optimization techniques: automated exposure control; mA and/or kV adjustment per patient size (includes targeted exams where dose is matched to clinical indication); or iterative reconstruction. COMPARISON: MR head wo con* [id number] 03/17/2020 11:17 AM RADIATION DOSE METRICS: Total DLP (mGy-cm): 827.3 FINDINGS: Brain: No intracranial hemorrhage, edema or other acute abnormalities are seen in the brain. There is generalized chronic atrophy with prominence of the ventricles and sulci. Bilateral encephalomalacia is present in the parietooccipital regions from old infarcts. Cerebral ventricles: The ventricles are prominent due to chronic atrophy. . Paranasal sinuses: There is a 1 cm retention cyst in the left maxillary sinus. Mastoid air cells: Visualized mastoid air cells are well aerated. Bones/joints: Unremarkable. No acute fracture. Soft tissues: Unremarkable. CT/CT head wo con* [id number] IMPRESSION: 1. Old bilateral parietooccipital infarcts. 2. Generalized chronic atrophy. 3. No acute intracranial abnormality. Radiation Dose CTDIVOL = (mGy): DLP = 827.3 (mGy-cm)
[2020-09-21 11:52] VITALS: BP 160/92; PULSE 94; RESP 18; TEMP 36.7; O2SAT 91; BMI 22.3
--- NOTE | 2020-09-21 11:58 | XR_ITS ---
WS: [id number] Sacrum and coccyx, 3 views, 09/21/2020 Clinical Data: fall with tail bone pain Comparison: None. Findings: No fractures or dislocations are seen. The SI joints and pubic symphysis are unremarkable. No bone de struction or erosion is seen. There is vascular calcification. XR/XR sacrum coccyx min 2V [id number] Impression: Negative sacrum and coccyx.
--- NOTE | 2020-09-21 12:09 | CTR_ITS ---
PROCEDURE INFORMATION: Exam: CT Cervical Spine Without Contrast Exam date and time: 09/21/2020 12:09 PM Age: 60 years old Clinical indication: Pain and injury or trauma; Fall; Blunt trauma; Neck pain; Injury date: 2 days ago; Additional info: Fall with neck pain TECHNIQUE: Imaging protocol: Computed tomography images of the cervical spine without contrast. Radiation optimization: All CT scans at this facility use at least one of these dose optimization techniques: automated exposure control; mA and/or kV adjustment per patient size (includes targeted exams where dose is matched to clinical indication); or iterative reconstruction. COMPARISON: CT head wo con* [id number] 09/21/2020 12:04 PM RADIATION DOSE METRICS: Total DLP (mGy-cm): 435.37 FINDINGS: Bones/joints: No acute fracture. There is about 2 mm of anterior subluxation of C4 on C5 which probably due to chronic facet and ligamentous degeneration.. Discs/Spinal canal/Neural foramina: Chronic degenerative changes are present with mild disc space narrowing sclerosis and osteophytes. There is hypertrophy of the cervical facet joints. No significant disc protrusion. No severe spinal canal stenosis. No significant neural foraminal narrowing. Lungs: Lung apices are normal. Soft tissues: Unremarkable. CT/CT cervical spin wo con* [id number] IMPRESSION: No acute findings. Radiation Dose CTDIVOL = (mGy): DLP = 435.37 (mGy-cm)
--- NOTE | 2020-09-21 13:07 | W.ED.GENADLT ---
HPI - General Adult General: Chief complaint: General Medical Stated complaint: FALL/ + LOC 3 DAYS AGO Time Seen by Provider: 09/21/20 11:43 History of Present Illness: HPI narrative: Patient comes to the ED via EMS after having a fall. Patient says fall occurred 3 days ago. She states she was in her bathroom and her little puppy tripped her and she fell back and hit her head. She reports a loss of consciousness but is unsure on how long she had LOC. She is complaining now of having headaches, neck pain and tailbone pain. She says she is mostly concerned about her tailbone region and says that is her most pain comes from. She rates her tailbone pain a 9 out of 10. Denies any other complaints or neurological symptoms. Associated symptoms: Reports headache(s); Deny chest pain, dyspnea, nausea, rash, palpitations or vomiting Review of Systems Const: Denies: fever(s), chills or fatigue Eyes: Denies: change in vision or eye discomfort ENMT: Denies: throat pain, odynophagia, nasal discharge or nasal congestion Card: Denies: chest pain, palpitations, edema, swelling of feet/ankles, dyspnea on exertion or orthopnea Resp: Denies: dyspnea, productive cough or non-productive cough GI: Denies: abdominal pain, nausea, vomiting, diarrhea, constipation or hematochezia : Denies: flank pain, dysuria or hematuria Musc: Reports: neck pain and back pain (tailbone); Denies: extremity swelling Skin/Breast: Denies: rash or new lesions Neuro: Reports: headache(s); Denies: numbness in extremities or weakness in extremities [facility] ED PFSH: Medical History Adult onset hypothyroidism Anxiety and depression Atrophy, vulva Temi vaginitis Caries involving multiple surfaces of tooth COPD (chronic obstructive pulmonary disease) Degenerative disc disease, lumbar GERD (gastroesophageal reflux disease) History of seizure Lumbar spondylosis Mixed hyperlipidemia Rectal irritation Use of cane as ambulatory aid Vitamin D insufficiency Surgical History H/O esophagogastroduodenoscopy (12/06/19) H/O: hysterectomy History of cholecystectomy History of thyroidectomy, total Status post colonoscopy (12/06/19) repeat in 10 years Family History Other Cancer Diabetes Hypertension Social History Smoking and tobacco status: current every day smoker Second hand smoke exposure: Yes Smoking risk assessment/counseling performed?: Yes Alcohol intake: current Alcohol intake frequency: 0-2 Drinks per Day Alcohol type: hard liquor Desire information about alcohol rehabilitation?: No Counseling given: No Desire information about substance/drug rehabilitation?: No Counseling given: No Adopted: No Caregiver/support person: No Lives independently: Yes Marital status: Single service: No Current occupational status: disabled History of recent travel: No Current gender identity: Female Physical Exam Const: COMMON NORMALS: no acute distress, patient oriented x3 and alert GENERAL APPEARANCE: cooperative and comfortable HENMT: COMMON NORMALS: normocephalic HEAD & SCALP: normocephalic MOUTH: Normal oral and palatal mucosa present THROAT: posterior oropharynx normal and uvula midline Neck/C-Spine: COMMON NORMALS: supple GENERAL: Yes normal visual inspection CERVICAL SPINE: Yes collar present Resp: COMMON NORMALS: normal respiratory effort, No retractions, No use of accessory muscles and clear to auscultation bilaterally AUSCULTATION: clear to auscultation bilaterally Cardio: COMMON NORMALS: regular rate, regular rhythm, S1 normal heart sound present, S2 normal heart sound present, No gallops present (Cardio), No clicks present (Cardio), No murmurs present (Cardio) and Peripheral pulses 2+ throughout RATE: regular rate RHYTHM: regular rhythm HEART SOUNDS: S1 normal heart sound present and S2 normal heart sound present PERIPHERAL PULSES: Peripheral pulses 2+ throughout GI: COMMON NORMALS: Normal to inspection, nondistended, normoactive bowel sounds present, Soft to palpation, non-tender and no masses PALPATION: Yes Soft to palpation : COMMON NORMALS: Yes no CVA tenderness BLADDER/KIDNEY EXAM: Yes no CVA tenderness Back/Pelvis: COMMON NORMALS: no CVA tenderness Extremity: COMMON NORMALS: normal to inspection Neuro: COMMON NORMALS: patient oriented x3, CN's II-XII intact bilaterally, moves all extremities, no focal motor deficits and no sensory deficits noted SENSORIUM/ORIENTATION: Yes alert SENSORY EXAM: Yes extremities (intact) MOTOR EXAM: 5/5 motor strength present throughout Skin: GENERAL SKIN EXAM: dry skin Course Vital Signs: Vital signs: Vital Signs Temperature 98.1 F 09/21/20 11:52 Pulse Rate 94 09/21/20 11:52 Respiratory Rate 18 09/21/20 11:52 Blood Pressure 160/92 09/21/20 11:52 Pulse Oximetry 91 09/21/20 11:52 MDM - General Adult MDM Narrative: Medical decision making narrative: Patient comes to the ED via EMS after having a fall 3 days ago. Patient says she had loss of consciousness and she reports headache, neck pain and tailbone pain. Neuro exam normal. CT of head and cervical spine showed no acute findings or fractures. X-ray of sacrum/coccyx showed no acute fractures. Patient was diagnosed with fall, headache and pain in the coccyx. She was discharged home and told to follow-up with her PCP in 7 to 10 days for reevaluation. Return to ED precautions given. Patient understood and agreed with plan. Imaging Data^: CT Head: Attestation: I personally reviewed and interpreted this imaging study as follows: Radiologist's impression: [address] [address] [address] Scan Report Signed Patient: Alina Young Unit #: [id number] : 1960 Age/Sex: 60 / F ADM Date: 09/21/20 Loc: ER Room/Bed: Attending Dr: Ordering Provider/Ordering MD: Benny Laguerre Date of Service: 09/21/20 Procedure(s): CT cervical spin wo con* [id number] Accession Number(s): [id number] Report Number: [id number] PROCEDURE INFORMATION: Exam: CT Cervical Spine Without Contrast Exam date and time: 09/21/2020 12:09 PM Age: 60 years old Clinical indication: Pain and injury or trauma; Fall; Blunt trauma; Neck pain; Injury date: 2 days ago; Additional info: Fall with neck pain TECHNIQUE: Imaging protocol: Computed tomography images of the cervical spine without contrast. Radiation optimization: All CT scans at this facility use at least one of these dose optimization techniques: automated exposure control; mA and/or kV adjustment per patient size (includes targeted exams where dose is matched to clinical indication); or iterative reconstruction. COMPARISON: CT head wo con* [id number] 09/21/2020 12:04 PM RADIATION DOSE METRICS: Total DLP (mGy-cm): 435.37 FINDINGS: Bones/joints: No acute fracture. There is about 2 mm of anterior subluxation of C4 on C5 which probably due to chronic facet and ligamentous degeneration.. Discs/Spinal canal/Neural foramina: Chronic degenerative changes are present with mild disc space narrowing sclerosis and osteophytes. There is hypertrophy of the cervical facet joints. No significant disc protrusion. No severe spinal canal stenosis. No significant neural foraminal narrowing. Lungs: Lung apices are normal. Soft tissues: Unremarkable. CT/CT cervical spin wo con* [id number] IMPRESSION: No acute findings. Radiation Dose CTDIVOL = (mGy): DLP = 435.37 (mGy-cm) Dictated By: Yeison David Signed By: Yeison David Signed Date/Time: 09/21/20 1259 DD/ [address]: Attestation: I personally reviewed and interpreted this imaging study as follows: Radiologist's impression: [address] [address] [address] Scan Report Signed Patient: Alina Young Unit #: [id number] : 1960 Age/Sex: 60 / F ADM Date: 09/21/20 Loc: ER Room/Bed: Attending Dr: Ordering Provider/Ordering MD: Benny Laguerre Date of Service: 09/21/20 Procedure(s): CT cervical spin wo con* [id number] Accession Number(s): [id number] Report Number: [id number] PROCEDURE INFORMATION: Exam: CT Cervical Spine Without Contrast Exam date and time: 09/21/2020 12:09 PM Age: 60 years old Clinical indication: Pain and injury or trauma; Fall; Blunt trauma; Neck pain; Injury date: 2 days ago; Additional info: Fall with neck pain TECHNIQUE: Imaging protocol: Computed tomography images of the cervical spine without contrast. Radiation optimization: All CT scans at this facility use at least one of these dose optimization techniques: automated exposure control; mA and/or kV adjustment per patient size (includes targeted exams where dose is matched to clinical indication); or iterative reconstruction. COMPARISON: CT head wo con* [id number] 09/21/2020 12:04 PM RADIATION DOSE METRICS: Total DLP (mGy-cm): 435.37 FINDINGS: Bones/joints: No acute fracture. There is about 2 mm of anterior subluxation of C4 on C5 which probably due to chronic facet and ligamentous degeneration.. Discs/Spinal canal/Neural foramina: Chronic degenerative changes are present with mild disc space narrowing sclerosis and osteophytes. There is hypertrophy of the cervical facet joints. No significant disc protrusion. No severe spinal canal stenosis. No significant neural foraminal narrowing. Lungs: Lung apices are normal. Soft tissues: Unremarkable. CT/CT cervical spin wo con* [id number] IMPRESSION: No acute findings. Radiation Dose CTDIVOL = (mGy): DLP = 435.37 (mGy-cm) Dictated By: Yeison aDvid Signed By: Yeison David Signed Date/Time: 09/21/20 1259 DD/ 1257 Xray Ortho: Attestation: I personally reviewed and interpreted this imaging study as follows: Radiologist's impression: [address] [address] XRay Report Signed Patient: Alina Young Unit #: [id number] : 1960 Age/Sex: 60 / F ADM Date: 09/21/20 Loc: ER Room/Bed: Attending Dr: Ordering Provider/Ordering MD: Benny Laguerre Date of Service: 09/21/20 Procedure(s): XR sacrum coccyx min 2V [id number] Accession Number(s): [id number] Report Number: [id number] WS: [id number] Sacrum and coccyx, 3 views, 09/21/2020 Clinical Data: fall with tail bone pain Comparison: None. Findings: No fractures or dislocations are seen. The SI joints and pubic symphysis are unremarkable. No bone destruction or erosion is seen. There is vascular calcification. XR/XR sacrum coccyx min 2V [id number] Impression: Negative sacrum and coccyx. Dictated By: Lara Ordoñez MD Signed By: Lara Ordoñez MD Signed Date/Time: 09/21/20 1308 DD/ 1307 Discharge Plan Discharge Patient Disposition: Home Clinical Impression: Pain in the coccyx Fall as cause of accidental injury at home as place of occurrence Qualifiers: Encounter type: initial encounter Qualified Code(s): W19.XXXA - Unspecified fall, initial encounter Headache Qualifiers: Headache type: post-traumatic Headache chronicity pattern: acute headache Intractability: not intractable Qualified Code(s): G44.319 - Acute post-traumatic headache, not intractable Condition: Stable Prescriptions: New ibuprofen 800 mg tablet 800 mg PO Q8H PRN (Reason: pain) Qty: 15 RF: 0 No Action albuterol sulfate [ProAir HFA] 90 mcg/actuation HFA aerosol inhaler 2 inh INHALATION Q6H PRN (Reason: shortness of breath or wheezing) Qty: 6.7 RF: 5 Symbicort 80-4.5 mcg/actuation HFA aerosol inhaler 2 inh INHALATION BID 30 Days Qty: 6.9 RF: 5 amlodipine 2.5 mg tablet 2.5 mg PO DAILY Qty: 30 RF: 3 atorvastatin [Lipitor] 20 mg tablet 20 mg PO DAILY Qty: 30 RF: 5 gabapentin 600 mg tablet 600 mg PO TID 30 Days Qty: 90 RF: 5 levothyroxine 50 mcg tablet 50 mcg PO DAILY Qty: 30 RF: 2 sertraline [Zoloft] 100 mg tablet 100 mg PO DAILY 30 Days Qty: 30 RF: 5 tizanidine 2 mg capsule 2 mg PO TID PRN (Reason: muscle spasticity) 30 Days Qty: 90 RF: 5 trazodone 100 mg tablet 100 mg PO DAILY 30 Days Qty: 30 RF: 5 hydrocodone-acetaminophen 5-325 mg tablet 1 tab PO BID PRN (Reason: pain) 30 Days Qty: 60 RF: 0 Tylenol 325 mg Tablet 325 - 650 mg PO QID PRN (Reason: PAIN/FEVER) RF: 0 Night Time Cough-Sore Throat 12.5-30-1,000 mg/30 mL Liquid 30 ml PO QID PRN (Reason: Cough) RF: 0 Daytime Cough, Sore Throat 1,000-30 mg/30 mL Liquid 30 ml PO Q4H PRN (Reason: Cough) RF: 0 Protonix 40 mg tablet,delayed release (DR/EC) 40 mg PO DAILY RF: 0 ergocalciferol (vitamin D2) 1,250 mcg (50,000 unit) capsule 1,250 mcg PO Q7D RF: 0 Discharge Orders: Discharge ED (Routine); Ordered 09/21/20 Ordered By: Benny Laguerre Referrals: Inez De La Cruz MD [Primary Care Provider] - Discharge Diet: Regular Discharge Activity: Increase activity as tolerated Patient Instructions: Acute Headache (ED), Fall Prevention (ED) Activity Restrictions/Additional Instructions: Follow-up with medical provider as directed in 7 to 10 days for evaluation. Apply cold pack on tailbone region to help with symptoms. Use cushions when sitting down also to help manage pain. Take medications as prescribed. Return to the ER or your medical provider if condition worsens. Please read and understand discharge instructions. Thank you for choosing [facility] for your healthcare needs today. Please realize this is an emergency room and that we are providing you with a medical screening exam and this may not be complete and all inclusive of all the testing and or work up that you may need to determine your ailment or severity of your illness. It is very important that you follow up as instructed or that you return to the Emergency Department should you have concerns or if your condition changes or worsens in any way. Coding Level of Care Code ED Tube Man for Marina Khan Exam Comprehensive
[2020-09-21] MEDS: HYDROcodone-acetaminophen 7.5-325 mg Tablet 1 TAB PO (14:06)
--- NOTE | 2020-09-21 14:11 | PC.NURSE ---
When attempting to discharge the pt became verbally abusive towards this nurse. the pt was screaming and yealling at this nurse to get her a ambulance ride so she could get out of this covid it is going to kill me .I tried to educate the pt on the ride wait times. pt stated that she was not waiting around to get covid . I told the pt the [facility] was free to go to the waiting room or outside and she screamed that I was a major bitch . Security was called and the charge nurse approached the room and helped to calm the pt and take her to the waiting room.
--- NOTE | 2020-09-21 14:26 | PC.NURSE ---
confirmation number [id number]
== END 2020-09-21 14:24 | disposition home or self-care (01) ==
PROVIDERS: Emergency Provider Physician Assistant; PCP Family Medicine
DX: G44.319 Acute post-traumatic headache, not intractable (principal); M53.3 Sacrococcygeal disorders, not elsewhere classified; W01.0XXA Fall on same level from slipping, tripping and stumbling without subsequent striking against object, initial encounter; J44.9 Chronic obstructive pulmonary disease, unspecified; E78.2 Mixed hyperlipidemia; F17.210 Nicotine dependence, cigarettes, uncomplicated
CPT/HCPCS: 70450; 72125; 72220; 99283

== ENCOUNTER → 2020-10-30 10:54 | Outpatient (BNVA) | payer MEDICAID, SELFPAY | PROVIDERS: PCP Family Medicine; Visit Provider Family Medicine | DX: J44.9 Chronic obstructive pulmonary disease, unspecified (principal); M51.36 Other intervertebral disc degeneration, lumbar region; F41.9 Anxiety disorder, unspecified; E78.2 Mixed hyperlipidemia; E03.8 Other specified hypothyroidism; G57.93 Unspecified mononeuropathy of bilateral lower limbs; I10 Essential (primary) hypertension; M79.7 Fibromyalgia; E55.9 Vitamin D deficiency, unspecified | CPT/HCPCS: 80053; 80061; 82306; 84443; 85025 ==

== ENCOUNTER → 2021-04-10 14:23 | Outpatient (BNVA) | payer MEDICAID, SELFPAY | PROVIDERS: PCP Family Medicine; Visit Provider Nurse Practitioner | DX: E03.8 Other specified hypothyroidism (principal); E78.2 Mixed hyperlipidemia; E55.9 Vitamin D deficiency, unspecified | CPT/HCPCS: 80053; 80061; 82306; 83721; 84443 ==

== ENCOUNTER → 2021-07-26 11:45 | Outpatient (BNVA) | payer MEDICAID, SELFPAY | PROVIDERS: PCP Family Medicine; Visit Provider Nurse Practitioner Family | DX: I10 Essential (primary) hypertension (principal); E78.2 Mixed hyperlipidemia; F41.9 Anxiety disorder, unspecified; F32.9 Major depressive disorder, single episode, unspecified; M79.7 Fibromyalgia; R73.9 Hyperglycemia, unspecified; Z12.31 Encounter for screening mammogram for malignant neoplasm of breast; Z12.4 Encounter for screening for malignant neoplasm of cervix; Z12.11 Encounter for screening for malignant neoplasm of colon; R19.7 Diarrhea, unspecified; N73.9 Female pelvic inflammatory disease, unspecified; N76.0 Acute vaginitis; B96.89 Other specified bacterial agents as the cause of diseases classified elsewhere; N39.0 Urinary tract infection, site not specified; Z78.0 Asymptomatic menopausal state; Z76.89 Persons encountering health services in other specified circumstances; M47.816 Spondylosis without myelopathy or radiculopathy, lumbar region | CPT/HCPCS: 80053; 80061; 83036; 87491; 87591; 87624; 87661 ==

== ENCOUNTER → 2021-08-07 10:08 | Outpatient (BNVA) | payer MEDICAID, SELFPAY | PROVIDERS: PCP Nurse Practitioner Family; Visit Provider Surgery | DX: K92.1 Melena (principal) | CPT/HCPCS: 99204; 99213 ==

== ENCOUNTER 2021-09-02 17:37 | Emergency (ER) | payer MEDICAID, SELFPAY ==
[2021-09-02 17:42] VITALS: BP 130/86; PULSE 64; RESP 14; TEMP 36.4; O2SAT 98
--- NOTE | 2021-09-02 20:48 | XRR_ITS ---
PROCEDURE INFORMATION: Exam: XR Left Knee Exam date and time: 09/02/2021 9:09 PM Age: 61 years old Clinical indication: Injury or trauma; Fall; Blunt trauma; Knee; Left; Additional info: Left knee pain after fall TECHNIQUE: Imaging protocol: Radiologic exam of the Left knee. Views: 3 views. COMPARISON: No relevant prior studies available. FINDINGS: Bones/joints: Normal. Soft tissues: Normal. XR/XR knee LT 3V* [id number] IMPRESSION: No acute findings.
--- NOTE | 2021-09-02 20:48 | W.ED.FALL ---
HPI - Fall General: Chief Complaint: Fall Stated Complaint: LEFT KNEE PAIN S/P FALL Time Seen by Provider: 09/02/21 20:41 History of Present Illness: Patient is a 61-year-old male comes to the ED with left knee pain after fall. Fall occurred 2 days ago when she slipped on some puppy pee on the floor. She fell down and her left knee hit the ground causing an abrasion. She is now having pain in her left knee. She rates the pain currently an 8 out of 10. She has not taken anything for pain today. Denies any headache or loss of consciousness. Patient is unsure of last tetanus. Associated symptoms-after fall: Denies abdominal pain, chest pain, headache(s), hematuria or neck pain Review of Systems Const: Denies: fever(s), chills or fatigue Eyes: Denies: change in vision or eye discomfort ENMT: Denies: throat pain, odynophagia, nasal discharge or nasal congestion Card: Denies: chest pain, palpitations, edema, swelling of feet/ankles, dyspnea on exertion or orthopnea Resp: Denies: dyspnea, productive cough or non-productive cough GI: Denies: abdominal pain, nausea, vomiting, diarrhea, constipation or hematochezia : Denies: flank pain, dysuria or hematuria Musc: Reports: extremity pain (Left knee); Denies: neck pain, back pain or extremity swelling Skin/Breast: Reports: new lesions (Abrasions to knee); Denies: rash Neuro: Denies: headache(s), numbness in extremities or weakness in extremities PFS ED PFSH: Medical History Adult onset hypothyroidism Anxiety and depression Atrophy, vulva Temi vaginitis Caries involving multiple surfaces of tooth COPD (chronic obstructive pulmonary disease) Degenerative disc disease, lumbar GERD (gastroesophageal reflux disease) History of seizure Lumbar spondylosis Mixed hyperlipidemia Vitamin D insufficiency Surgical History H/O esophagogastroduodenoscopy (12/06/19) H/O: hysterectomy History of cholecystectomy History of thyroidectomy, total Status post colonoscopy (12/06/19) repeat in 10 years Family History Other Cancer Diabetes Hypertension Social History Smoking and tobacco status: never smoked Second hand smoke exposure: Yes Smoking risk assessment/counseling performed?: Yes Alcohol intake: current Alcohol intake frequency: 0-2 Drinks per Day Alcohol type: hard liquor Desire information about alcohol rehabilitation?: No Counseling given: No Desire information about substance/drug rehabilitation?: No Counseling given: No Adopted: No Caregiver/support person: No Lives independently: Yes Household members: none Marital status: Single service: No Current occupational status: disabled Pets and animals: Yes History of recent travel: No Current gender identity: Female Physical Exam Const: COMMON NORMALS: patient oriented x3 HENMT: COMMON NORMALS: normocephalic HEAD & SCALP: normocephalic MOUTH: Normal oral and palatal mucosa present THROAT: posterior oropharynx normal and uvula midline Neck/C-Spine: COMMON NORMALS: supple GENERAL: Yes normal visual inspection Resp: COMMON NORMALS: normal respiratory effort, No retractions, No use of accessory muscles and clear to auscultation bilaterally AUSCULTATION: clear to auscultation bilaterally Cardio: COMMON NORMALS: regular rate, regular rhythm, S1 normal heart sound present, S2 normal heart sound present, No gallops present (Cardio), No clicks present (Cardio), No murmurs present (Cardio) and Peripheral pulses 2+ throughout RATE: regular rate RHYTHM: regular rhythm HEART SOUNDS: S1 normal heart sound present and S2 normal heart sound present PERIPHERAL PULSES: Peripheral pulses 2+ throughout GI: COMMON NORMALS: Normal to inspection, nondistended, normoactive bowel sounds present, Soft to palpation, non-tender and no masses PALPATION: Yes Soft to palpation : COMMON NORMALS: Yes no CVA tenderness BLADDER/KIDNEY EXAM: Yes no CVA tenderness Back/Pelvis: COMMON NORMALS: no CVA tenderness Extremity: COMMON NORMALS: normal to inspection Neuro: COMMON NORMALS: patient oriented x3 and moves all extremities Skin: NARRATIVE SKIN EXAM: Multiple superficial abrasions over patella of the left knee. No erythema, warmth or purulent drainage. GENERAL SKIN EXAM: dry skin Course Vital Signs: Vital signs: Vital Signs Temperature 98.1 F 09/02/21 22:35 Pulse Rate 77 09/02/21 22:35 Respiratory Rate 18 09/02/21 22:35 Blood Pressure 142/81 09/02/21 22:35 Pulse Oximetry 98 09/02/21 22:35 MDM - Fall Medical Decision Making Patient is a 61-year-old female comes to the ED with left knee pain after fall. Fall occurred 3 days ago when she says she slipped on a puddle of urine from her dog. Denies any loss of consciousness or headache vitals are stable. Patient has superficial abrasion to left knee and the rest of exam is benign. X-ray of left knee showed no acute fractures or findings. Patient was diagnosed with knee pain and an abrasion of left knee. She was given an updated tetanus here in the ED. Return to ED precautions given. Follow-up with PCP in the next week for reevaluation. Patient is to agree with plan. Lab Data Radiology Impressions Knee X-Ray 09/02/21 20:48 IMPRESSION: No acute findings. Discharge Plan Discharge Patient Disposition: Home Clinical Impression: Abrasion of knee, left Qualifiers: Encounter type: initial encounter Qualified Code(s): S80.212A - Abrasion, left knee, initial encounter Knee pain Qualifiers: Chronicity: acute Laterality: left Qualified Code(s): M25.562 - Pain in left knee Condition: Stable Prescriptions: New Celebrex 100 mg capsule 100 mg PO BID PRN (Reason: pain) Qty: 15 0RF No Action albuterol sulfate [ProAir HFA] 90 mcg/actuation HFA aerosol inhaler 2 inh INHALATION Q6H PRN (Reason: shortness of breath or wheezing) Qty: 6.7 5RF amlodipine 2.5 mg tablet 2.5 mg PO DAILY Qty: 30 5RF atorvastatin [Lipitor] 20 mg tablet 20 mg PO DAILY Qty: 30 5RF Symbicort 80-4.5 mcg/actuation HFA aerosol inhaler 2 inh INHALATION BID 30 Days Qty: 6.9 5RF ergocalciferol (vitamin D2) 1,250 mcg (50,000 unit) capsule 1,250 mcg PO Q7D Qty: 4 5RF Rx Instructions: TAKE ON FRIDAY estradiol 0.01 % (0.1 mg/gram) cream 1 appful vaginal .weekly Qty: 42.5 5RF fenofibrate 54 mg tablet 54 mg PO DAILY Qty: 30 5RF gabapentin 600 mg tablet 600 mg PO TID 30 Days Qty: 90 5RF hydrocortisone [Anusol-HC] 2.5 % cream with perineal applicator 1 applic [place] BID PRN (Reason: hemorrhoids) 30 Days Qty: 30 5RF levothyroxine 50 mcg tablet 50 mcg PO DAILY Qty: 30 5RF Protonix 40 mg tablet,delayed release (DR/EC) 40 mg PO DAILY Qty: 30 5RF sertraline [Zoloft] 100 mg tablet 100 mg PO DAILY 30 Days Qty: 30 5RF tizanidine 2 mg tablet 2 mg PO TID PRN (Reason: muscle spasticity) Qty: 90 5RF trazodone 100 mg tablet 100 mg PO DAILY 30 Days Qty: 30 5RF nicotine 21 mg/24 hr patch 24 hour 1 patch transdermal Q24H Qty: 28 0RF Lactobacillus acidophilus PO .1 daily 0RF loperamide 2 mg tablet 2 mg PO Q8H PRN0RF ascorbic acid (vitamin C) 1,000 mg tablet 1 g PO ONCE 0RF ciprofloxacin HCl [Cipro] 250 mg tablet 250 mg PO BID 7 Days Qty: 14 0RF metronidazole 500 mg tablet 500 mg PO BID 7 Days Qty: 14 0RF ketorolac 10 mg tablet 10 mg PO QID PRN (Reason: pain) 5 Days Qty: 20 0RF cholestyramine (with sugar) [Questran] 4 gram powder 4 g PO BID Qty: 348.6 6RF Rx Instructions: administer w/meal; avoid other meds within 1hr before or 4-6hr after dose potassium chloride 10 mEq tablet extended release 10 meq PO BID Qty: 60 0RF utoaldhzxy-synjpctyzhyfy-cmqe [Esgic] 50-325-40 mg tablet 1 tab PO Q6H PRN (Reason: pain) Qty: 90 2RF loperamide [Imodium A-D] 2 mg tablet 2 mg PO Q6H PRN (Reason: loose stool) Qty: 10 0RF terconazole 0.8 % cream 1 appful vaginal .at bedtime 7 Days Qty: 20 0RF promethazine-DM 6.25-15 mg/5 mL syrup 5 ml PO Q6H PRN (Reason: cough) Qty: 120 0RF Tylenol 325 mg Tablet 325 - 650 mg PO QID PRN (Reason: PAIN/FEVER) 0RF ondansetron 4 mg film 4 mg PO DAILY PRN (Reason: nausea and vomiting) Qty: 10 0RF Discharge Orders: Discharge ED (Routine); Ordered 09/02/21 Ordered By: Benny Laguerre Referrals: Margarita Akins NP [Primary Care Provider] - Discharge Diet: Regular Discharge Activity: Increase activity as tolerated Patient Instructions: Abrasion (ED), Knee Pain (ED) Activity Restrictions/Additional Instructions: Follow-up with medical provider as directed in the next 7 to 10 days reevaluation. Rest, ice and elevate left knee. Take medications as prescribed. Return to the ER or your medical provider if condition worsens. Please read and understand discharge instructions. Thank you for choosing [facility] for your healthcare needs today. Please realize this is an emergency room and that we are providing you with a medical screening exam and this may not be complete and all inclusive of all the testing and or work up that you may need to determine your ailment or severity of your illness. It is very important that you follow up as instructed or that you return to the Emergency Department should you have concerns or if your condition changes or worsens in any way. Coding Level of Care Code ED Chair Inspector And Leveler for Marina Fwd Exam Comprehensive
[2021-09-02 21:00] VITALS: BP 142/81; PULSE 77; RESP 18; TEMP 36.7; O2SAT 98
[2021-09-02] MEDS: HYDROcodone-acetaminophen 5-325 mg Tablet 1 TAB PO (21:59)
[2021-09-02] MEDS: tetanus-dipt-pertussis 0.5 mL SDV IM (21:59)
[2021-09-02 22:35] VITALS: BP 142/81; PULSE 77; RESP 18; TEMP 36.7; O2SAT 98
== END 2021-09-02 22:38 | disposition home or self-care (01) ==
PROVIDERS: Emergency Provider Physician Assistant; PCP Nurse Practitioner Family
DX: S80.212A Abrasion, left knee, initial encounter (principal); M25.562 Pain in left knee; J44.9 Chronic obstructive pulmonary disease, unspecified; E78.2 Mixed hyperlipidemia; Z77.22 Contact with and (suspected) exposure to environmental tobacco smoke (acute) (chronic); W01.0XXA Fall on same level from slipping, tripping and stumbling without subsequent striking against object, initial encounter; Z23 Encounter for immunization
CPT/HCPCS: 73562; 90471; 90715; 99283

== ENCOUNTER 2021-09-03 02:03 | Emergency (ER) | payer MEDICAID, SELFPAY ==
[2021-09-03 02:58] VITALS: BP 172/103; PULSE 110; RESP 18; TEMP 36.4; O2SAT 96; BMI 21.4
[2021-09-03 03:01] VITALS: BP 167/112; PULSE 97; RESP 18; O2SAT 99
[2021-09-03 03:10] LABS: Basophils # 0.1 10^3/uL (0.0-0.1); Basophils % 0.7 %; Eosinophils % 0.1 %; Hematocrit 37.9 % (37.0-47.0); Hemoglobin 13.5 g/dL (11.5-15.3); Lymphocytes % 15.5 %; Mean Corpuscular HGB Conc 35.6 g/dL (30.0-36.0); Mean Corpuscular Hemoglobin 33.8 pg (28.0-34.0); Mean Corpuscular Volume 94.8 fl (81-99); Monocytes # 0.5 10^3/uL (0.2-0.9); Monocytes % 4.3 %; Neutrophils # 9.95 10^3/uL (1.8-7.7); Nucleated Red Blood Cells % 0 %; Platelet Count 325 10^3/cmm (130-400); Red Cell Distribution Width 12.2 % (12.1-15.1); White Blood Count 12.6 10^3/uL (4.0-10.0)
[2021-09-03] MEDS: sodium chloride 0.9% 1,000 ML 999 ML IV (03:17)
[2021-09-03 03:30] LABS: Alanine Aminotransferase 23 U/L (0-33); Albumin Level 4.3 g/dL (3.5-5.2); Alkaline Phosphatase 77 IU/L (35-105); Aspartate Amino Transferase 64 U/L (0-32); Blood Urea Nitrogen 10 mg/dL (6-20); Calcium 8.9 mg/dL (8.5-10.5); Carbon Dioxide 15 mmol/L (22-29); Chloride 107 mmol/L (98-107); Creatinine Clr Calc Pharmacy 66.3394; Globulin 2.9 g/dL (1.3-4.6); Glomerular Filtration Rate 73.4 mL/min (90-130); Glucose 116 mg/dL (65-115); Lipase 21 U/L (13-60); Osmolality Calculated 294 mOsm/kg (285-295); Sodium 142 mmol/L (136-145); Total Bilirubin 0.4 mg/dL (0.15-1.2); Total Protein 7.2 g/dL (6.6-8.7)
[2021-09-03 03:31] VITALS: BP 147/102; PULSE 87; RESP 20; O2SAT 96
--- NOTE | 2021-09-03 03:46 | XRR_ITS ---
PROCEDURE INFORMATION: Exam: XR Abdomen Exam date and time: 09/03/2021 3:52 AM Age: 61 years old Clinical indication: Nausea and vomiting; Prior surgery; Surgery type: Hysterectomy. Gb. Patient HX: C/O n/v/d. ; Additional info: Vomiting and diarrhea TECHNIQUE: Imaging protocol: Radiologic exam of the abdomen. Views: Frontal supine view of the abdomen. 1 View. COMPARISON: CT abdomen pelvis w con* [id number] 10/14/2019 2:05 PM FINDINGS: Gastrointestinal tract: Nondilated air-filled loops of small bowel are seen in the left upper quadrant with a paucity of bowel gas seen within the right flank pelvis, findings that raise some suspicion for a small bowel obstruction. Bones/joints: Unremarkable. XR/XR KUB portable [id number] IMPRESSION: Nondilated gas-filled loops of small bowel are seen in the left upper quadrant with a paucity of bowel gas seen within the right flank and pelvis, findings that raise suspicion for a small bowel obstruction.
[2021-09-03] MEDS: ondansetron 2 mg/ML SDV 2 mL 4 MG IVP (03:53)
--- NOTE | 2021-09-03 04:09 | CTR_ITS ---
PROCEDURE INFORMATION: Exam: CT Abdomen And Pelvis Without Contrast Exam date and time: 09/03/2021 4:45 AM Age: 61 years old Clinical indication: Nausea and vomiting; Prior surgery; Surgery type: Hysterectomy. Gb. Patient HX: C/O n/v/d. ; Additional info: Vomiting, abdominal distension TECHNIQUE: Imaging protocol: Computed tomography of the abdomen and pelvis without contrast. Radiation optimization: All CT scans at this facility use at least one of these dose optimization techniques: automated exposure control; mA and/or kV adjustment per patient size (includes targeted exams where dose is matched to clinical indication); or iterative reconstruction. COMPARISON: CT abdomen pelvis w con* [id number] 10/14/2019 2:05 PM RADIATION DOSE METRICS: Total DLP (mGy-cm): 1320.76 FINDINGS: Liver: Normal. No mass. Gallbladder and bile ducts: Status post cholecystectomy. Pancreas: Normal. No ductal dilation. Spleen: Normal. No splenomegaly. Adrenal glands: Normal. No mass. Kidneys and ureters: Strandy opacities are seen in the perinephric fascia bilaterally likely representing chronic scarring. Stomach and bowel: There is fatty infiltration seen within the ascending colon. There are nondilated small bowel loops present containing fluid and a few air-fluid levels, findings that suggests ileus. There is liquid stool present within the distal sigmoid colon and rectum. Appendix: The appendix is visualized and is normal in configuration. Intraperitoneal space: Unremarkable. No free air. No significant fluid collection. Vasculature: Calcifications are seen within the abdominal aorta, iliac and femoral arteries bilaterally. Lymph nodes: Unremarkable. No enlarged lymph nodes. Urinary bladder: Unremarkable as visualized. Reproductive: Status post hysterectomy. Bones/joints: Unremarkable. No acute fracture. Soft tissues: Unremarkable. CT/CT abdomen pelvis con [id number] IMPRESSION: 1. Fatty infiltration of the ascending colon. 2. Liquid stool seen in the distal sigmoid colon and rectum 3. Fluid air-fluid level seen in non dilated small bowel loops compatible with ileus.
--- NOTE | 2021-09-03 04:11 | ED_ITS ---
HPI - Nausea/Vomiting/Diarrhea General: Chief complaint: Nausea/Vomiting/Diarrhea Stated complaint: vomiting yellow Time Seen by Provider: 09/03/21 03:35 Source: patient History of Present Illness: 61 year old female. She presents with diarrhea for three days. She has been waiting in the ER for quite a while today. Over the course of the day, she has developed yellow, bilous vomiting. She has some diffuse belly pain. No fever. No prior history of these symptoms. MD elicited complaint: nausea, vomiting and diarrhea Onset (ago): day(s) Description of vomiting: watery and bilious Associated nausea: Yes Location of pain: Other Radiation: other Pain consistency: other Relieving factors: none Associated symtoms: Reports decreased urine output and nausea; Denies altered mental status, chest pain, cough, diaphoresis, dysuria, headache(s), rash or short of breath Review of Systems Const: Denies: fever(s) or diaphoresis ENMT: Denies: throat pain Card: Denies: chest pain Resp: Denies: dyspnea, productive cough or non-productive cough GI: Reports: abdominal pain, nausea, vomiting, diarrhea and GI cramping; Denies: hematemesis : Denies: dysuria Neuro: Denies: headache(s) PFSH ED PFSH: Medical History Adult onset hypothyroidism Anxiety and depression Atrophy, vulva Temi vaginitis Caries involving multiple surfaces of tooth COPD (chronic obstructive pulmonary disease) Degenerative disc disease, lumbar GERD (gastroesophageal reflux disease) History of seizure Lumbar spondylosis Mixed hyperlipidemia Vitamin D insufficiency Surgical History H/O esophagogastroduodenoscopy (12/06/19) H/O: hysterectomy History of cholecystectomy History of thyroidectomy, total Status post colonoscopy (12/06/19) repeat in 10 years Family History Other Cancer Diabetes Hypertension Social History Smoking and tobacco status: never smoked Second hand smoke exposure: Yes Smoking risk assessment/counseling performed?: Yes Alcohol intake: current Alcohol intake frequency: 0-2 Drinks per Day Alcohol type: hard liquor Desire information about alcohol rehabilitation?: No Counseling given: No Desire information about substance/drug rehabilitation?: No Counseling given: No Adopted: No Caregiver/support person: No Lives independently: Yes Household members: none Marital status: Single service: No Current occupational status: disabled Pets and animals: Yes History of recent travel: No Current gender identity: Female Physical Exam Const: COMMON NORMALS: alert EXAM LIMITATIONS: no altered mental status HENMT: COMMON NORMALS: normocephalic and Normal external nose present HEAD & SCALP: normocephalic FACE & SINUS: normal facial exam and face symmetric NOSE: Normal external nose present Eye: COMMON NORMALS: Equal, round and reactive pupils present and EOMs intact bilaterally PUPIL: Yes Equal, round and reactive pupils present Chest: CHEST: Yes Symmetrical chest wall rise Resp: COMMON NORMALS: normal respiratory effort, No use of accessory muscles and clear to auscultation bilaterally AUSCULTATION: clear to auscultation bilaterally Cardio: COMMON NORMALS: regular rate and regular rhythm RATE: regular rate RHYTHM: regular rhythm GI: COMMON NORMALS: Soft to palpation INSPECTION: Yes normal to inspection PALPATION: Yes Soft to palpation and Yes Tenderness to palpation present (GI) (diffuse) Extremity: COMMON NORMALS: no pedal edema Neuro: SENSORIUM/ORIENTATION: Yes alert Course Vital Signs: Vital signs: Vital Signs Temperature 97.6 F 09/03/21 02:58 Pulse Rate 110 H 09/03/21 05:45 Respiratory Rate 18 09/03/21 05:45 Blood Pressure 158/100 09/03/21 05:45 Pulse Oximetry 97 09/03/21 05:45 MDM - Nausea/Vomiting/Diarrhea Medical Decision Making Leukocytosis of 12.6. Bicarbonate down to 15. She is feeling improved after fluid bolus, antiemetics. CT is consistent with mild ileus. Will attempt trial of liquids at home. She knows to return for a worsening symptoms. Lab Data : 09/03/21 03:00 09/03/21 03:00 Radiology Impressions KUB X-Ray 09/03/21 03:46 IMPRESSION: Nondilated gas-filled loops of small bowel are seen in the left upper quadrant with a paucity of bowel gas seen within the right flank and pelvis, findings that raise suspicion for a small bowel obstruction. Abdomen/Pelvis CT 09/03/21 04:09 IMPRESSION: 1. Fatty infiltration of the ascending colon. 2. Liquid stool seen in the distal sigmoid colon and rectum 3. Fluid air-fluid level seen in non dilated small bowel loops compatible with ileus. Laboratory Results WBC 12.6 10^3/uL (4.0-10.0) H 09/03/21 03:00 RBC 4.00 10^6/uL (4.1-5.3) L 09/03/21 03:00 Hgb 13.5 g/dL (11.5-15.3) 09/03/21 03:00 Hct 37.9 % (37.0-47.0) 09/03/21 03:00 MCV 94.8 fl (81-99) 09/03/21 03:00 MCH 33.8 pg (28.0-34.0) 09/03/21 03:00 MCHC 35.6 g/dL (30.0-36.0) 09/03/21 03:00 RDW 12.2 % (12.1-15.1) 09/03/21 03:00 Plt Count 325 10^3/cmm (130-400) 09/03/21 03:00 MPV 9.0 fL (7.4-10.4) 09/03/21 03:00 Neut % (Auto) 79.0 % 09/03/21 03:00 Lymph % (Auto) 15.5 % 09/03/21 03:00 Pershing % (Auto) 4.3 % 09/03/21 03:00 Eos % (Auto) 0.1 % 09/03/21 03:00 Baso % (Auto) 0.7 % 09/03/21 03:00 Neut # (Auto) 9.95 10^3/uL (1.8-7.7) H 09/03/21 03:00 Lymph # (Auto) 2.0 10^3/uL (0.8-4.8) 09/03/21 03:00 Pershing # (Auto) 0.5 10^3/uL (0.2-0.9) 09/03/21 03:00 Eos # (Auto) 0.0 10^3/uL (0.0-0.8) 09/03/21 03:00 Baso # (Auto) 0.1 10^3/uL (0.0-0.1) 09/03/21 03:00 Nucleated RBC % (auto) 0 % 09/03/21 03:00 Nucleated RBCs # 0.0 /100WBC 09/03/21 03:00 Sodium 142 mmol/L (136-145) 09/03/21 03:00 Potassium 4.0 mmol/L (3.5-5.1) 09/03/21 03:00 Chloride 107 mmol/L (98-107) 09/03/21 03:00 Carbon Dioxide 15 mmol/L (22-29) L 09/03/21 03:00 Anion Gap 24.0 (5-19) H 09/03/21 03:00 BUN 10 mg/dL (6-20) 09/03/21 03:00 Creatinine 0.8 mg/dL (0.5-0.9) 09/03/21 03:00 GFR Calculation 73.4 mL/min (90-130) L 09/03/21 03:00 Glucose 116 mg/dL (65-115) H 09/03/21 03:00 Calculated Osmolality 294 mOsm/kg (285-295) 09/03/21 03:00 Calcium 8.9 mg/dL (8.5-10.5) 09/03/21 03:00 Total Bilirubin 0.4 mg/dL (0.15-1.2) 09/03/21 03:00 AST 64 U/L (0-32) H 09/03/21 03:00 ALT 23 U/L (0-33) 09/03/21 03:00 Alkaline Phosphatase 77 IU/L (35-105) 09/03/21 03:00 C-Reactive Protein 3.0 mg/L (0.0-4.9) 09/03/21 03:00 Total Protein 7.2 g/dL (6.6-8.7) 09/03/21 03:00 Albumin 4.3 g/dL (3.5-5.2) 09/03/21 03:00 Globulin 2.9 g/dL (1.3-4.6) 09/03/21 03:00 Lipase 21 U/L (13-60) 09/03/21 03:00 Discharge Plan Discharge Patient Disposition: Home Clinical Impression: Ileus Condition: Stable Prescriptions: New ondansetron 4 mg film 4 mg PO DAILY PRN (Reason: nausea and vomiting) Qty: 10 0RF No Action albuterol sulfate [ProAir HFA] 90 mcg/actuation HFA aerosol inhaler 2 inh INHALATION Q6H PRN (Reason: shortness of breath or wheezing) Qty: 6.7 5RF amlodipine 2.5 mg tablet 2.5 mg PO DAILY Qty: 30 5RF atorvastatin [Lipitor] 20 mg tablet 20 mg PO DAILY Qty: 30 5RF Symbicort 80-4.5 mcg/actuation HFA aerosol inhaler 2 inh INHALATION BID 30 Days Qty: 6.9 5RF ergocalciferol (vitamin D2) 1,250 mcg (50,000 unit) capsule 1,250 mcg PO Q7D Qty: 4 5RF Rx Instructions: TAKE ON FRIDAY estradiol 0.01 % (0.1 mg/gram) cream 1 appful vaginal .weekly Qty: 42.5 5RF fenofibrate 54 mg tablet 54 mg PO DAILY Qty: 30 5RF gabapentin 600 mg tablet 600 mg PO TID 30 Days Qty: 90 5RF hydrocortisone [Anusol-HC] 2.5 % cream with perineal applicator 1 applic [place] BID PRN (Reason: hemorrhoids) 30 Days Qty: 30 5RF levothyroxine 50 mcg tablet 50 mcg PO DAILY Qty: 30 5RF Protonix 40 mg tablet,delayed release (DR/EC) 40 mg PO DAILY Qty: 30 5RF sertraline [Zoloft] 100 mg tablet 100 mg PO DAILY 30 Days Qty: 30 5RF tizanidine 2 mg tablet 2 mg PO TID PRN (Reason: muscle spasticity) Qty: 90 5RF trazodone 100 mg tablet 100 mg PO DAILY 30 Days Qty: 30 5RF nicotine 21 mg/24 hr patch 24 hour 1 patch transdermal Q24H Qty: 28 0RF Lactobacillus acidophilus PO .1 daily 0RF loperamide 2 mg tablet 2 mg PO Q8H PRN0RF ascorbic acid (vitamin C) 1,000 mg tablet 1 g PO ONCE 0RF ciprofloxacin HCl [Cipro] 250 mg tablet 250 mg PO BID 7 Days Qty: 14 0RF metronidazole 500 mg tablet 500 mg PO BID 7 Days Qty: 14 0RF ketorolac 10 mg tablet 10 mg PO QID PRN (Reason: pain) 5 Days Qty: 20 0RF cholestyramine (with sugar) [Questran] 4 gram powder 4 g PO BID Qty: 348.6 6RF Rx Instructions: administer w/meal; avoid other meds within 1hr before or 4-6hr after dose potassium chloride 10 mEq tablet extended release 10 meq PO BID Qty: 60 0RF [id number]-ekdlvtkesyxxc-dkwp [Esgic] 50-325-40 mg tablet 1 tab PO Q6H PRN (Reason: pain) Qty: 90 2RF loperamide [Imodium A-D] 2 mg tablet 2 mg PO Q6H PRN (Reason: loose stool) Qty: 10 0RF terconazole 0.8 % cream 1 appful vaginal .at bedtime 7 Days Qty: 20 0RF promethazine-DM 6.25-15 mg/5 mL syrup 5 ml PO Q6H PRN (Reason: cough) Qty: 120 0RF Tylenol 325 mg Tablet 325 - 650 mg PO QID PRN (Reason: PAIN/FEVER) 0RF Celebrex 100 mg capsule 100 mg PO BID PRN (Reason: pain) Qty: 15 0RF Discharge Orders: Discharge ED (Routine); Ordered 09/03/21 Ordered By: Bhavesh Roldan Referrals: Margarita Akins NP [Primary Care Provider] - 1-3 days Activity Restrictions/Additional Instructions: Use a fiber based supplement to take in your stool to some degree. Return for fever greater than 100, vomiting liquids or medications despite treatment, other concerning symptoms. Use the nausea medication you were given every 4 hours while awake for the first 24 hours, then as needed. Coding Level of Care Code ED Social Service Director for Marina Khan
[2021-09-03] MEDS: haloperidol inj 5 mg/mL INJ 1 mL 3 MG IVP (04:31)
[2021-09-03 05:01] VITALS: BP 152/107; PULSE 113; RESP 18; O2SAT 95
[2021-09-03 05:30] VITALS: BP 158/100; PULSE 110; RESP 18; O2SAT 97
[2021-09-03 05:45] VITALS: BP 158/100; PULSE 110; RESP 18; O2SAT 97
== END 2021-09-03 05:46 | disposition home or self-care (01) ==
PROVIDERS: Emergency Provider Emergency Medicine; PCP Nurse Practitioner Family
DX: K56.7 Ileus, unspecified (principal); J44.9 Chronic obstructive pulmonary disease, unspecified; E78.2 Mixed hyperlipidemia; Z77.22 Contact with and (suspected) exposure to environmental tobacco smoke (acute) (chronic)
CPT/HCPCS: 74018; 74176; 80053; 83690; 85025; 86140; 96361; 96374; 96375; 99284; J1630; J2405; J7030

== ENCOUNTER → 2021-09-20 12:09 | Outpatient (BNVA) | payer MEDICAID, SELFPAY | PROVIDERS: PCP Nurse Practitioner Family; Visit Provider Nurse Practitioner Family | DX: R07.9 Chest pain, unspecified (principal); W19.XXXA Unspecified fall, initial encounter; R07.81 Pleurodynia; J40 Bronchitis, not specified as acute or chronic; R29.6 Repeated falls; M79.7 Fibromyalgia; G57.90 Unspecified mononeuropathy of unspecified lower limb; J44.9 Chronic obstructive pulmonary disease, unspecified; M47.816 Spondylosis without myelopathy or radiculopathy, lumbar region; K52.9 Noninfective gastroenteritis and colitis, unspecified; G57.93 Unspecified mononeuropathy of bilateral lower limbs; M51.36 Other intervertebral disc degeneration, lumbar region | CPT/HCPCS: 80053 ==

== ENCOUNTER 2021-09-28 06:54 | Day surgery (SDC) | payer MEDICAID, SELFPAY ==
[2021-09-26 12:42] VITALS: BMI 22.3
[2021-09-28] MEDS: sodium chloride 0.9% 1,000 ML 30 ML IV (07:42)
[2021-09-28 07:44] VITALS: PULSE 105; RESP 18; TEMP 36.3; O2SAT 98
--- NOTE | 2021-09-28 07:50 | ANES.PREANE2 ---
Pre-Anesthetic Assessment Height/Weight: Height 1.63 m Weight 58.967 kg Temp Pulse Resp Pulse Ox 97.4 F L 105 H 18 98 09/28/21 07:44 09/28/21 07:44 09/28/21 07:44 09/28/21 07:44 Preop Diagnosis: diagnostic Operation Date: 09/28/21 07:30 Proposed Procedures p [address] EGD, [id number] COLONOSCOPY R19.7,K92.1(Not Applicable) - Shoaib Kelly MD s Colonoscopy(Not Applicable) - Shoaib Kelly MD Familial anesthetic complications: none Was Beta Niya taken within 24 hours: Yes Was Clonidine taken within 24 hours: N/A Last intake: Intake Last Liquid Date 09/27/21 Last Liquid Time 18:30 Last Solid Date 09/26/21 Last Solid Time 20:00 Social Tobacco (1ppd) and No alcohol Exam alert and oriented x 3 Airway Submandibular: within normal limits Cervical ROM: within normal limits Mallampati: Class II Dentition: false History/ROS No significant history except as noted Pulmonary Chronic Obstructive Pulmonary Disease CV/HEM Hypertension None reported Hepatic None reported Metabolic Hyperlipidemia and Thyroid Disease [facility] Fibromyalgia, Osteoarthritis/DJD and Rheumatoid Arthritis Neuropsych Anxiety, Depression and Seizure (pt reports 3 years ago after a fall ) Anesthetic Plan ASA status: 3 Risk of > 500 ml blood loss (7ml/kg in children): No Medications/Allergies Home Medications Medication Instructions Recorded Confirmed Last Taken Type acetaminophen 325 mg tablet 325 - 650 mg PO QID PRN 09/21/20 09/28/21 09/27/21 History (Tylenol) albuterol sulfate 90 mcg/actuation 2 inh INHALATION Q6H PRN #6.7 gm 04/10/21 09/28/21 09/27/21 Rx aerosol inhaler (ProAir HFA) amlodipine 2.5 mg tablet 2.5 mg PO DAILY #30 tab 04/10/21 09/28/21 09/28/21 06:30 Rx atorvastatin 20 mg tablet (Lipitor) 20 mg PO DAILY #30 tab 04/10/21 09/28/21 09/27/21 Rx budesonide-formoterol HFA 80 2 inh INHALATION BID 30 Days #6.9 04/10/21 09/28/21 09/27/21 Rx mcg-4.5 mcg/actuation aerosol gm inhaler (Symbicort) ergocalciferol (vitamin D2) 1,250 1,250 mcg PO Q7D #4 cap 04/10/21 09/28/21 09/27/21 Rx mcg (50,000 unit) capsule estradiol 1 appful VAGINAL .weekly #42.5 g 04/10/21 09/28/21 09/27/21 Rx fenofibrate 54 mg tablet 54 mg PO DAILY #30 tab 04/10/21 09/28/21 09/27/21 Rx gabapentin 600 mg tablet 600 mg PO TID 30 Days #90 tab 04/10/21 09/28/21 09/27/21 Rx hydrocortisone 2.5 % topical cream 1 applic [place] BID PRN 30 Days #30 gm 04/10/21 09/28/21 09/27/21 Rx with perineal applicator (Anusol-HC) levothyroxine 50 mcg tablet 50 mcg PO DAILY #30 tab 04/10/21 09/28/21 09/28/21 06:30 Rx pantoprazole 40 mg tablet,delayed 40 mg PO DAILY #30 tab 04/10/21 09/28/21 09/27/21 Rx release (Protonix) sertraline 100 mg tablet (Zoloft) 100 mg PO DAILY 30 Days #30 tab 04/10/21 09/28/21 09/27/21 Rx trazodone 100 mg tablet 100 mg PO DAILY 30 Days #30 tab 04/10/21 09/28/21 09/27/21 Rx qgxlmtmqdj-kuinjrubudlyy-vvplkxnb 1 tab PO Q6H PRN #90 tab 04/18/21 09/28/21 09/27/21 Rx 50 mg-325 mg-40 mg tablet (Esgic) cholestyramine (with sugar) 4 gram 4 g PO BID #348.6 g 08/09/21 09/28/21 09/27/21 Rx oral powder (Questran) loperamide 2 mg capsule (Imodium 2 mg PO QID PRN #90 cap 09/20/21 09/28/21 09/27/21 Rx A-D) promethazine-DM 6.25 mg-15 mg/5 mL ml 09/28/21 09/27/21 History oral syrup tizanidine 2 mg tablet mg 09/28/21 09/27/21 History Allergies Allergy/AdvReac Type Severity Reaction Status Date / Time aripiprazole [From Abilify] Allergy Unknown Verified 09/26/21 12:34 duloxetine [From Cymbalta] Allergy Unknown Verified 09/26/21 12:34 tramadol Allergy Unknown Verified 09/26/21 12:34 Current Medications Generic Name Dose Route Start Last Admin Trade Name Freq PRN Reason Stop Dose Admin Sodium Chloride 1,000 mls @ 30 mls/hr 09/28/21 07:15 09/28/21 07:42 Sodium Chloride 0.9% IV 09/29/21 07:14 30 mls/hr .Q24H LAVONNE Administration PFSH Anesthesia Medical History (Updated 09/20/21 @ 11:03 by Margarita Akins NP) Adult onset hypothyroidism Anxiety and depression Atrophy, vulva Temi vaginitis Caries involving multiple surfaces of tooth COPD (chronic obstructive pulmonary disease) Degenerative disc disease, lumbar GERD (gastroesophageal reflux disease) History of seizure Lumbar spondylosis Mixed hyperlipidemia Vitamin D insufficiency Surgical History H/O esophagogastroduodenoscopy (12/06/19) H/O: hysterectomy History of cholecystectomy History of thyroidectomy, total Status post colonoscopy (12/06/19) repeat in 10 years Family History Other Cancer Diabetes Hypertension Social History Smoking and tobacco status: current every day smoker Second hand smoke exposure: Yes Smoking risk assessment/counseling performed?: Yes Alcohol intake: current Alcohol intake frequency: 0-2 Drinks per Day Alcohol type: hard liquor Desire information about alcohol rehabilitation?: No Counseling given: No Desire information about substance/drug rehabilitation?: No Counseling given: No Adopted: No Caregiver/support person: No Lives independently: Yes Household members: none Marital status: Single service: No Current occupational status: disabled Pets and animals: Yes History of recent travel: No Current gender identity: Female Data Anesthesia Cardiac Studies: Echocardiogram Ultrasound 10/18/19
--- NOTE | 2021-09-28 08:01 | P.HP_ITS ---
Same Day Surgery H&P Indication for Procedure/HPI DATE OF PROCEDURE: September 28, 2021 CHIEF COMPLAINT/INDICATIONFOR SURGICAL PROCEDURE: egd/colonoscopy PREOP DIAGNOSIS: diagnostic PLANNED PROCEDURE: Operation Date: 09/28/21 07:30 Proposed Procedures p 75706 EGD, 20486 COLONOSCOPY R19.7,K92.1(Not Applicable) - Shoaib Kelly MD s Colonoscopy(Not Applicable) - Shoaib Kelly MD Medications/Allergies* Home Medications Medication Instructions Recorded Confirmed Type acetaminophen 325 mg tablet 325 - 650 mg PO QID PRN 09/21/20 09/28/21 History (Tylenol) promethazine-DM 6.25 mg-15 mg/5 mL ml 09/28/21 History oral syrup tizanidine 2 mg tablet mg 09/28/21 History Allergies/Adverse Reactions Allergy/AdvReac Type Severity Reaction Status Date / Time aripiprazole [From Abilify] Allergy Unknown Verified 09/26/21 12:34 duloxetine [From Cymbalta] Allergy Unknown Verified 09/26/21 12:34 tramadol Allergy Unknown Verified 09/26/21 12:34 Current Medications: Generic Name Dose Route Start Last Admin Trade Name Freq PRN Reason Stop Dose Admin Sodium Chloride 1,000 mls @ 30 mls/hr 09/28/21 07:15 09/28/21 07:42 Sodium Chloride 0.9% IV 09/29/21 07:14 30 mls/hr .Q24H LAVONNE Administration Pertinent History/Comorbid Conditions* Medical History (Updated 09/20/21 @ 11:03 by Margarita Akins NP) Adult onset hypothyroidism Anxiety and depression Atrophy, vulva Temi vaginitis Caries involving multiple surfaces of tooth COPD (chronic obstructive pulmonary disease) Degenerative disc disease, lumbar GERD (gastroesophageal reflux disease) History of seizure Lumbar spondylosis Mixed hyperlipidemia Vitamin D insufficiency Surgical History (Updated 12/06/19 @ 07:45 by Shoaib Kelly MD) H/O esophagogastroduodenoscopy (12/06/19) H/O: hysterectomy History of cholecystectomy History of thyroidectomy, total Status post colonoscopy (12/06/19) repeat in 10 years Family History (Updated 06/15/19 @ 11:16 by Lizzy Conner LPN) Diabetes Cancer Hypertension Social History Smoking and tobacco status: current every day smoker Second hand smoke exposure: Yes Smoking risk assessment/counseling performed?: Yes Alcohol intake: current Alcohol intake frequency: 0-2 Drinks per Day Alcohol type: hard liquor Desire information about alcohol rehabilitation?: No Counseling given: No Desire information about substance/drug rehabilitation?: No Counseling given: No Adopted: No Caregiver/support person: No Lives independently: Yes Household members: none Marital status: Single service: No Current occupational status: disabled Pets and animals: Yes History of recent travel: No Current gender identity: Female Pertinent Exam Findings alert, oriented x 3 and regular rate & rhythm Recommendations Surgery/Procedure today Coding Level of Care Code [employer] Librarian for Marina Khan
[2021-09-28 08:43] VITALS: BP 103/69; PULSE 93; RESP 16; TEMP 35.8; O2SAT 92
[2021-09-28 08:53] VITALS: BP 108/83; PULSE 85; RESP 18; O2SAT 92
--- NOTE | 2021-09-28 12:17 | ANE.PACU2 ---
Inpatient post-anesthesia follow up: Airway intact: Yes Vital signs: Temperature 96.5 F Pulse Rate 85 Respiratory Rate 18 Blood Pressure 108/83 Pulse Oximetry 92 Oxygen Delivery Me thod Room Air Oxygen Flow Rate Fraction of Inspir ed Oxygen Hydration adequate: Yes Nausea and vomiting: No Pain level: 1 Mental status: Baseline
== END 2021-09-28 09:11 | disposition home or self-care (01) ==
PROVIDERS: PCP Nurse Practitioner Family; Visit Provider Surgery
PROC: 0DJD8ZZ Inspection of Lower Intestinal Tract, Via Natural or Artificial Opening Endoscopic (ICD-10-PCS; CPT 45378; 2021-09-28 07:30)
PROC: 0DJ08ZZ Inspection of Upper Intestinal Tract, Via Natural or Artificial Opening Endoscopic (ICD-10-PCS; CPT 43235; 2021-09-28 07:30)
DX: R19.7 Diarrhea, unspecified (principal); K92.1 Melena; K29.80 Duodenitis without bleeding; K29.70 Gastritis, unspecified, without bleeding; F17.200 Nicotine dependence, unspecified, uncomplicated; J44.9 Chronic obstructive pulmonary disease, unspecified; I10 Essential (primary) hypertension; M06.9 Rheumatoid arthritis, unspecified; F41.9 Anxiety disorder, unspecified; F32.A Depression, unspecified; E03.9 Hypothyroidism, unspecified; K21.9 Gastro-esophageal reflux disease without esophagitis; E78.2 Mixed hyperlipidemia; E55.9 Vitamin D deficiency, unspecified
CPT/HCPCS: 43235; 45380; 82274; 83630; 87493; 87506; 88305; J2704; J7030

== ENCOUNTER → 2021-11-08 09:57 | Outpatient (BNVA) | payer MEDICAID, SELFPAY | PROVIDERS: PCP Nurse Practitioner Family; Visit Provider Nurse Practitioner Family | DX: I10 Essential (primary) hypertension (principal); N90.5 Atrophy of vulva; R06.02 Shortness of breath; E78.2 Mixed hyperlipidemia; E03.8 Other specified hypothyroidism; F41.9 Anxiety disorder, unspecified; R00.0 Tachycardia, unspecified; R55 Syncope and collapse | CPT/HCPCS: 93005 ==

== ENCOUNTER 2021-11-08 11:24 | Emergency (ER) | payer MEDICAID, SELFPAY ==
[2021-11-08] VITALS (9 sets, daily range): BP systolic 158–188; BP diastolic 106–119; PULSE 80–102; RESP 14–18; TEMP 36.6; O2SAT 94–100
--- NOTE | 2021-11-08 11:29 | W.ED.GENADLT ---
HPI - General Adult General: Chief complaint: Weakness Stated complaint: dizziness,sob Time Seen by Provider: 11/08/21 11:28 History of Present Illness: Ms. Young is a 61-year-old lady with significant past medical history of hypertension, hyperlipidemia, fibromyalgia, history of stroke, COPD presenting to the emergency department due to generalized weakness and shortness of breath. She reports gradual onset of symptoms approximately 2 weeks ago. Symptoms are intermittent but overall have become more intense. Sometimes worse with exertion but not reliably so. No other specific changes in health, exacerbating, or alleviating factors identified. Onset (ago): week(s) Severity: moderate Exacerbating factors: movement Review of Systems General: Reports: 10 or more systems reviewed and unremarkable except in HPI and below PFSH ED PFSH: Medical History (Updated 11/19/21 @ 20:21 by Brendon Maciel DPM) Adult onset hypothyroidism Anxiety and depression Atrophy, vulva Temi vaginitis Caries involving multiple surfaces of tooth Chronic back pain Chronic lumbar pain COPD (chronic obstructive pulmonary disease) Degenerative disc disease, lumbar GERD (gastroesophageal reflux disease) History of seizure Lumbar spondylosis Mixed hyperlipidemia Vitamin D insufficiency Surgical History H/O esophagogastroduodenoscopy (09/28/21) H/O: hysterectomy History of cholecystectomy History of thyroidectomy, total Status post colonoscopy (09/28/21) repeat in 10 years Family History Other Cancer Diabetes Hypertension Social History Smoking and tobacco status: never smoked Second hand smoke exposure: Yes Smoking risk assessment/counseling performed?: Yes Alcohol intake: current Alcohol intake frequency: 0-2 Drinks per Day Alcohol type: hard liquor Desire information about alcohol rehabilitation?: No Counseling given: No Desire information about substance/drug rehabilitation?: No Counseling given: No Adopted: No Caregiver/support person: No Lives independently: Yes Household members: none Marital status: Single service: No Current occupational status: disabled Pets and animals: Yes History of recent travel: No Current gender identity: Female Physical Exam Const: COMMON NORMALS: patient oriented x3 and alert GENERAL APPEARANCE: cooperative and well developed HENMT: COMMON NORMALS: normocephalic and atraumatic HEAD & SCALP: normocephalic and atraumatic THROAT: posterior oropharynx normal Eye: COMMON NORMALS: conjunctivae normal CONJUNCTIVA: Yes conjunctivae normal SCLERA: sclerae normal Neck/C-Spine: COMMON NORMALS: supple GENERAL: Yes trachea midline Resp: COMMON NORMALS: normal respiratory effort EFFORT & INSPECTION: Yes able to speak in complete sentences AUSCULTATION: wheezes and diminished lung sounds Cardio: COMMON NORMALS: regular rate and regular rhythm RATE: regular rate RHYTHM: regular rhythm GI: COMMON NORMALS: Soft to palpation PALPATION: Yes Soft to palpation and No Tenderness to palpation present (GI) Extremity: GENERAL: Yes normal exam except as noted and No edema Neuro: COMMON NORMALS: patient oriented x3, CN's II-XII intact bilaterally, moves all extremities, no focal motor deficits and no sensory deficits noted SENSORIUM/ORIENTATION: Yes alert and No Orientation impaired Psych: COMMON NORMALS: mental status grossly normal and Normal thought process present THOUGHT PROCESS: Normal thought process present Course ED course: - Patient was seen and evaluated by me at bedside - Patient placed on cardiac monitors, IV access obtained - Initial evaluation notable for exam as above. EKG notable for sinus rhythm, no STEMI - Labs and xrays personally interpreted by me -RT treatment, fluids, COPD exacerbation treatment ordered - Labs notable for no leukocytosis, normal hemoglobin. Metabolic panel with mild evidence of dehydration. Initial lactate elevated though clinically patient is not septic and does not appear toxic. The etiology is somewhat uncertain but likely related to dehydration which is being treated with IV fluids. Delta troponin negative. Procalcitonin negative. Abdominal exam is benign - Imaging notable for no lobar consolidation or pneumothorax. CT head for headache without acute pathology identified. Proximal colitis on CT abdomen pelvis. - Upon serial reexamination after treatment the patient was improved - Based on patient history, evaluation, and testing as interpreted the most likely cause of the patient's condition is COPD and colitis - The results of ED evaluation were discussed with the patient including prescriptions and/or symptomatic cares (if applicable) including appropriate and responsible use, followup plan, and return precautions. The patient verbalized understanding and felt safe for discharge. - Patient discharged in satisfactory condition. Note: Click bubbles or prepopulated joseph in note writing are used for assistance with data collection and billing and are inherently more limited than narrative and other text portions of this note. Please use narrative for additional clinical history and defer to narrative/free test for any case of contradictory information. If information appears in only free text or click bubble it should be considered present or absent as reported. Please contact note mortgage underwriter for clarifications of clinical information or contradictory information. MDM is a brief summary, contradictory or erroneous seeming information should be clarified and full note should be reviewed. Vital Signs: Vital signs: Vital Signs Temperature 97.8 F 11/08/21 11:34 Pulse Rate 101 H 11/08/21 17:51 Respiratory Rate 18 11/08/21 15:37 Blood Pressure 176/119 11/08/21 16:00 Pulse Oximetry 97 11/08/21 17:51 Oxygen Delivery Me thod 11/08/21 16:00 Oxygen Flow Rate 98 11/08/21 14:28 MDM - General Adult Medical Decision Making 61-year-old lady presenting with general symptoms and respiratory symptoms. Likely mild colitis. Patient with treatment and nontoxic in appearance satisfactory for outpatient management with strict return precautions given. Medical Records I reviewed the patient's medical records. Lab Data I reviewed the patient's lab results. : 11/08/21 12:45 11/08/21 12:45 Radiology Impressions Abdomen/Pelvis CT 11/08/21 12:02 IMPRESSION: 1. Normal appendix. 2. Very mild wall thickening involving the sigmoid colon without adjacent inflammation. May be due to mild colitis. Otherwise no abnormality. 3. Prior cholecystectomy and hysterectomy. Chest X-Ray 11/08/21 12:02 IMPRESSION: Unremarkable chest radiograph. Head CT 11/08/21 12:02 IMPRESSION: 1. No acute intracranial hemorrhage or edema. Stable head CT since 09/21/2020. 2. Large bilateral parietal occipital lobe infarcts with encephalomalacia. Laboratory Results WBC 7.3 10^3/uL (4.0-10.0) 11/08/21 12:45 RBC 3.68 10^6/uL (4.1-5.3) L 11/08/21 12:45 Hgb 13.0 g/dL (11.5-15.3) 11/08/21 12:45 Hct 39.2 % (37.0-47.0) 11/08/21 12:45 MCV 106.5 fl (81-99) H 11/08/21 12:45 MCH 35.3 pg (28.0-34.0) H 11/08/21 12:45 MCHC 33.2 g/dL (30.0-36.0) 11/08/21 12:45 RDW 15.7 % (12.1-15.1) H 11/08/21 12:45 Plt Count 207 10^3/cmm (130-400) 11/08/21 12:45 MPV 9.2 fL (7.4-10.4) 11/08/21 12:45 Neut % (Auto) 73.3 % 11/08/21 12:45 Lymph % (Auto) 20.0 % 11/08/21 12:45 Gonzales % (Auto) 5.4 % 11/08/21 12:45 Eos % (Auto) 0.4 % 11/08/21 12:45 Baso % (Auto) 0.6 % 11/08/21 12:45 Neut # (Auto) 5.33 10^3/uL (1.8-7.7) 11/08/21 12:45 Lymph # (Auto) 1.5 10^3/uL (0.8-4.8) 11/08/21 12:45 Gonzales # (Auto) 0.4 10^3/uL (0.2-0.9) 11/08/21 12:45 Eos # (Auto) 0.0 10^3/uL (0.0-0.8) 11/08/21 12:45 Baso # (Auto) 0.0 10^3/uL (0.0-0.1) 11/08/21 12:45 Nucleated RBC % (auto) 0 % 11/08/21 12:45 Nucleated RBCs # 0.0 /100WBC 11/08/21 12:45 Sodium 137 mmol/L (136-145) 11/08/21 12:45 Potassium 3.9 mmol/L (3.5-5.1) 11/08/21 12:45 Chloride 103 mmol/L (98-107) 11/08/21 12:45 Carbon Dioxide 20 mmol/L (22-29) L 11/08/21 12:45 Anion Gap 17.9 (5-19) 11/08/21 12:45 BUN 5 mg/dL (6-20) L 11/08/21 12:45 Creatinine 0.7 mg/dL (0.5-0.9) 11/08/21 12:45 GFR Calculation 85.6 mL/min (90-130) L 11/08/21 12:45 Glucose 80 mg/dL (65-115) 11/08/21 12:45 Calculated Osmolality 280 mOsm/kg (285-295) L 11/08/21 12:45 Lactic Acid 3.6 mmol/L (0.5-2.2) H 11/08/21 15:11 Lactate 2.9 mmol/L (0.5-2.2) H 11/08/21 12:45 Calcium 8.8 mg/dL (8.5-10.5) 11/08/21 12:45 Total Bilirubin 0.4 mg/dL (0.15-1.2) 11/08/21 12:45 AST 27 U/L (0-32) 11/08/21 12:45 ALT 16 U/L (0-33) 11/08/21 12:45 Alkaline Phosphatase 82 U/L (35-105) 11/08/21 12:45 Troponin T Baseline 9 ng/L (0-10) 11/08/21 12:45 Troponin T 120 Minute 10.10 ng/L (0-10) H 11/08/21 14:55 Delta Troponin T 1.10 ABS# (0-10) 11/08/21 14:55 C-Reactive Protein 3.0 mg/L (0.0-4.9) 11/08/21 12:45 Total Protein 6.6 g/dL (6.6-8.7) 11/08/21 12:45 Albumin 3.7 g/dL (3.5-5.2) 11/08/21 12:45 Globulin 2.9 g/dL (1.3-4.6) 11/08/21 12:45 Lipase 52 U/L (13-60) 11/08/21 12:45 Procalcitonin 0.06 ng/mL (0-0.5) 11/08/21 12:45 TSH 0.92 uIU/mL (0.27-4.20) 11/08/21 12:45 SARS-CoV-2 Ag (Rapid) Negative (Negative) 11/08/21 14:18 Discharge Plan Discharge Patient Disposition: Home Clinical Impression: Colitis, Generalized weakness Condition: Stable Prescriptions: New ondansetron 4 mg tablet,disintegrating 4 mg PO Q8H PRN (Reason: nausea and vomiting) Qty: 15 0RF amoxicillin-pot clavulanate 875-125 mg tablet 1 tab PO BID Qty: 20 0RF No Action hydrocortisone [Anusol-HC] 2.5 % cream with perineal applicator 1 applic AR BID PRN (Reason: hemorrhoids) 30 Days Qty: 30 5RF loperamide [Imodium A-D] 2 mg capsule 2 mg PO QID PRN (Reason: loose stool) Qty: 90 2RF levothyroxine 50 mcg tablet 50 mcg PO DAILY Qty: 30 5RF naloxone [Narcan] 4 mg/actuation spray,non-aerosol 4 mg intranasal Q2M PRN (Reason: opioid overdose) Qty: 2 0RF Rx Instructions: spray 1 dose into ONE nostril; alternate nostrils (DME) CAM boot See Rx Instructions .Route .MEDSUPPLY Qty: 1 0RF Rx Instructions: As directed albuterol sulfate [ProAir HFA] 90 mcg/actuation HFA aerosol inhaler 2 inh INHALATION Q6H PRN (Reason: shortness of breath or wheezing) Qty: 6.7 2RF amlodipine 2.5 mg tablet 2.5 mg PO DAILY Qty: 30 2RF Hold Instructions: low blood pressure at home atorvastatin [Lipitor] 20 mg tablet 20 mg PO DAILY Qty: 30 2RF Symbicort 80-4.5 mcg/actuation HFA aerosol inhaler 2 inh INHALATION BID 30 Days Qty: 6.9 2RF gabapentin 600 mg tablet 600 mg PO TID 30 Days Qty: 90 2RF Protonix 40 mg tablet,delayed release (DR/EC) 40 mg PO DAILY Qty: 30 2RF tizanidine 2 mg tablet 2 mg PO TID PRN (Reason: muscle spasticity) Qty: 90 2RF trazodone 100 mg tablet 100 mg PO DAILY 30 Days Qty: 30 2RF hydrocodone-acetaminophen 5-325 mg tablet 1 tab PO TID PRN (Reason: pain) 30 Days Qty: 90 0RF acetaminophen [Tylenol] 325 mg Tablet 325 - 650 mg PO QID PRN (Reason: PAIN/FEVER) Discharge Orders: Discharge ED (Routine); Ordered 11/08/21 Ordered By: Pavan Hoang Referrals: Margarita Akins NP [Primary Care Provider] - Discharge Diet: Advance as tolerated and Clear Liquid Discharge Activity: Increase activity as tolerated Patient Instructions: Chronic Pain (ED), Weakness (ED), Colitis (ED), Opioid Safety Activity Restrictions/Additional Instructions: Thank you for visiting the emergency department. You were seen evaluated for generalized weakness and shakiness. The exact cause of your symptoms is unclear though does not appear to need hospitalization at this time. You were noted to have mild dehydration and colitis. This will be treated with antibiotics. Additionally will prescribe a short course of pain medication. Please continue to take your other medications as prescribed. The hydrocodone contains acetaminophen, packaged with it, please use caution when using additional Tylenol and do not exceed 4 g total per day. Please follow-up with your primary care provider within the next few days. Return to the emergency department for worsening symptoms, any new neurologic symptoms, or anything else that you are concerned about a feel needs emergency department evaluation. Coding Level of Care Code ED Lean Manufacturing Coordinator for Chg Fwd Exam Comprehensive
--- NOTE | 2021-11-08 12:02 | XR_ITS ---
WS: [id number] Exam: XR chest 1V portable [id number] Date/Time of Exam: 11/08/2021 12:04 PM Reason For Exam: presyncope Comparison 10/15/2019. Findings: The lungs are clear and fully expanded. Costophrenic angles are sharp. No infiltrates. Bronchovascula r relief appears normal. Cardiac silhouette is unremarkable. Bony elements are intact. XR/XR chest 1V portable [id number] IMPRESSION: Unremarkable chest radiograph.
--- NOTE | 2021-11-08 12:02 | CT_ITS ---
WS: [id number] CT HEAD NONCONTRAST HISTORY: dizzy, stroke like symptoms TECHNIQUE: Contiguous axial imaging performed through the brain in 2.5 mm imaging. Bone and soft tiss ue windows. Sagittal and coronal reformats reviewed. All CT scans at [facility] use at least one of these dose optimization techniques: automated exposure control; mA and/or kV adjustment per pa tient size (includes targeted exams where dose is matched to clinical indication); or iterative recon struction. DLP: 1009.58 mGy.cm COMPARISON: 09/21/2020 No acute intracranial hemorrhage, midline shift or mass effect. Moderate atrophy is noted bilaterally within the cerebellum and cerebrum. Large remote bilateral [place] etal occipital infarcts with encephalomalacia and volume loss. Small lacunar infarcts in the externa l capsules bilaterally. Ventricles: Mild enlargement the ventricles. Increase fluid around the frontal lobes. No inferior displacement of cerebellar tonsils. Paranasal sinuses: Air-fluid level in the LEFT sphenoid sinus. Mastoid air cells are clear. Mastoid air cells: Well pneumatized. Calvarium and scalp: Skull is intact with no soft tissue edema or swelling. CT/CT head wo con* [id number] IMPRESSION: 1. No acute intracranial hemorrhage or edema. Stable head CT since 09/21/2020. 2. Large bilateral parietal occipital lobe infarcts with encephalomalacia.
--- NOTE | 2021-11-08 12:02 | CT_ITS ---
WS: [id number] CT ABDOMEN AND PELVIS NONCONTRAST HISTORY: abd pain. Diarrhea TECHNIQUE: Imaging performed through the abdomen and pelvis. Coronal and sagittal reformats are submi tted. All CT scans at [facility] use at least one of these dose optimization techniques: auto mated exposure control; mA and/or kV adjustment per patient size (includes targeted exams where dose is matched to clinical indication); or iterative reconstruction. DLP: 496.25 mGy.cm COMPARISON: 09/03/2021 Lower thorax: Stable partially calcified nodule measuring 6 mm in the RIGHT lower lobe. Normal size h eart. No hiatal hernia. Liver: Mild hepatic steatosis. Focal calcification LEFT lobe. No bile duct dilatation. Gallbladder: Prior cholecystectomy. Pancreas: Normal size and attenuation. Normal pancreatic duct. No pancreatitis or mass. Spleen: Normal. Adrenal glands: Normal. No mass. Right kidney: Normal size kidney with no mass or hydronephrosis. Left kidney: Normal size kidney with no mass or hydronephrosis. Aorta: Mild atherosclerosis abdominal aorta with no aneurysm. No free fluid, intraperitoneal air or significant lymphadenopathy. GI tract: Small appendicolith. No evidence for acute appendicitis on this examination. No GI tract ob struction. No diverticulitis. There is very mild wall thickening involving the distal sigmoid. Could be due to underdistention or fecal retention or mild colitis. Abdominal wall: Negative. No hernia. Pelvis: Prior hysterectomy. Negative gallbladder. No adenopathy or fluid. Osseous structures: Unremarkable. CT/CT abdomen pelvis wo con [id number] IMPRESSION: 1. Normal appendix. 2. Very mild wall thickening involving the sigmoid colon without adjacent infl ammation. May be due to mild colitis. Otherwise no abnormality. 3. Prior cholecystectomy and hysterectomy.
--- NOTE | 2021-11-08 12:03 | ECG_ITS ---
[facility] Test Date: 2021-11-08 Pat Name: Alina Young Department: Room: Gender: Female Sql Programmer: : 1960 Requested By: Pavan Hoang Order Number: [id number] Angela MD: Olegario Lagos M.D. Measurements Intervals [place] Rate: 88 P: 30 NC: 140 QRS: 22 QRSD: 83 T: 54 QT: 385 QTc: 466 Interpretive Statements SINUS RHYTHM Compared to ECG 10/14/2019 14:37:53 Sinus tachycardia no longer present Short NC interval no longer present Myocardial infarct finding no longer present Electronically Signed On 11-09-2021 15:35:52 CDT by Olegario Lagos M.D. [id number]
[2021-11-08] MEDS: lactated ringers 1,000 ML 999 ML IV (12:31)
[2021-11-08 12:48] LABS: Basophils % 0.6 %; Eosinophils % 0.4 %; Hematocrit 39.2 % (37.0-47.0); Lymphocytes # 1.5 10^3/uL (0.8-4.8); Mean Corpuscular HGB Conc 33.2 g/dL (30.0-36.0); Mean Corpuscular Hemoglobin 35.3 pg (28.0-34.0); Mean Corpuscular Volume 106.5 fl (81-99); Mean Platelet Volume 9.2 fL (7.4-10.4); Monocytes # 0.4 10^3/uL (0.2-0.9); Monocytes % 5.4 %; Neutrophils # 5.33 10^3/uL (1.8-7.7); Neutrophils % 73.3 %; Nucleated Red Blood Cells % 0 %; Platelet Count 207 10^3/cmm (130-400); Red Blood Count 3.68 10^6/uL (4.1-5.3); Red Cell Distribution Width 15.7 % (12.1-15.1); White Blood Count 7.3 10^3/uL (4.0-10.0)
[2021-11-08 13:08] LABS: Lactate (Lactic Acid level) 2.9 mmol/L (0.5-2.2)
[2021-11-08 13:15] LABS: Troponin(5th) Baseline 9 ng/L (0-10)
[2021-11-08] MEDS: meclizine 25 mg tablet PO (13:16)
[2021-11-08 13:25] LABS: Procalcitonin 0.06 ng/mL (0-0.5); Thyroid Stimulating Hormone 0.92 uIU/mL (0.27-4.20)
[2021-11-08 13:36] LABS: Alanine Aminotransferase 16 U/L (0-33); Albumin Level 3.7 g/dL (3.5-5.2); Alkaline Phosphatase 82 U/L (35-105); Anion Gap 17.9 (5-19); Aspartate Amino Transferase 27 U/L (0-32); Blood Urea Nitrogen 5 mg/dL (6-20); Calcium 8.8 mg/dL (8.5-10.5); Carbon Dioxide 20 mmol/L (22-29); Chloride 103 mmol/L (98-107); Globulin 2.9 g/dL (1.3-4.6); Glomerular Filtration Rate 85.6 mL/min (90-130); Glucose 80 mg/dL (65-115); Lipase 52 U/L (13-60); Osmolality Calculated 280 mOsm/kg (285-295); Potassium 3.9 mmol/L (3.5-5.1); Sodium 137 mmol/L (136-145); Total Bilirubin 0.4 mg/dL (0.15-1.2); Total Protein 6.6 g/dL (6.6-8.7)
--- NOTE | 2021-11-08 14:15 | ECG_ITS ---
[facility] Test Date: 2021-11-08 Pat Name: Alina Young Department: Room: Gender: Female Tool Engineer: : 1960 Requested By: Pavan Hoang Order Number: [id number] Angela MD: Olegario Lagos M.D. Measurements Intervals [place] Rate: 80 P: 49 VA: 156 QRS: 46 QRSD: 74 T: 58 QT: 406 QTc: 469 Interpretive Statements SINUS RHYTHM Compared to ECG 11/08/2021 11:36:59 No significant changes Electronically Signed On 11-09-2021 15:47:09 CDT by Olegario Lagos M.D. [email or web address] [email or web address] [email or web address] [email or web address]/store/[id number]
[2021-11-08] MEDS: ipratropium-albuterol 3 mL Neb INHALATION (14:28)
[2021-11-08 14:58] LABS: SARS Covid-2 Antigen Negative (Negative)
[2021-11-08] MEDS: fentaNYL 50 mcg/mL INJ 2mL IVP (15:37)
[2021-11-08] MEDS: ketorolac 30 mg/mL INJ 15 MG IVP (15:38)
[2021-11-08 15:46] LABS: Lactic Sepsis W/Reflex 3.6 mmol/L (0.5-2.2)
[2021-11-08] MEDS: sodium chloride 0.9% 1,000 ML 999 ML IV (17:11)
[2021-11-08] MEDS: gabapentin 300 mg Capsule 600 MG PO (17:11)
[2021-11-08] MEDS: acetaminophen 500 mg Tablet 1000 MG PO (17:12)
[2021-11-08] MEDS: amoxicillin-clav 875-125 mg Tablet 1 TAB PO (17:12)
[2021-11-08 17:13] LABS: Reflex Lactate Order REFLEX LACTIC ORDERD
[2021-11-08] MEDS: HYDROcodone-acetaminophen 5-325 mg Tablet 1 TAB PO (17:13)
== END 2021-11-08 17:50 | disposition home or self-care (01) ==
PROVIDERS: Emergency Provider Emergency Medicine; PCP Nurse Practitioner Family
DX: K52.9 Noninfective gastroenteritis and colitis, unspecified (principal); R53.1 Weakness; J44.9 Chronic obstructive pulmonary disease, unspecified; E78.2 Mixed hyperlipidemia; Z77.22 Contact with and (suspected) exposure to environmental tobacco smoke (acute) (chronic); Z20.822 Contact with and (suspected) exposure to COVID-19
CPT/HCPCS: 70450; 71045; 74176; 80053; 83605; 83690; 84145; 84443; 84484; 85025; 86140; 87426; 93005; 94640; 96374; 96375; 99285; J1885; J2930; J3010; J7030; J8597

== ENCOUNTER → 2021-11-13 13:24 | Outpatient (BNVA) | payer MEDICAID, SELFPAY | PROVIDERS: PCP Nurse Practitioner Family; Visit Provider Nurse Practitioner Family | DX: M25.572 Pain in left ankle and joints of left foot (principal); M79.672 Pain in left foot; W19.XXXA Unspecified fall, initial encounter; Y92.009 Unspecified place in unspecified non-institutional (private) residence as the place of occurrence of the external cause | CPT/HCPCS: 73610; 73630 ==

== ENCOUNTER → 2021-11-15 15:58 | Outpatient (BNVA) | payer MEDICAID, SELFPAY | PROVIDERS: PCP Nurse Practitioner Family; Visit Provider Podiatrist Foot & Ankle Surgery | DX: S82.832A Other fracture of upper and lower end of left fibula, initial encounter for closed fracture (principal); W01.0XXA Fall on same level from slipping, tripping and stumbling without subsequent striking against object, initial encounter | CPT/HCPCS: 99204 ==

== ENCOUNTER 2021-11-16 08:31 | Outpatient (CLI) | payer MEDICAID, SELFPAY | END 2021-11-16 08:32 | disposition home or self-care (01) | LOC: SPT 08:32 | PROVIDERS: PCP Nurse Practitioner Family; Visit Provider Podiatrist Foot & Ankle Surgery | DX: S82.402D Unspecified fracture of shaft of left fibula, subsequent encounter for closed fracture with routine healing (principal); X58.XXXD Exposure to other specified factors, subsequent encounter | CPT/HCPCS: L4361 ==

== ENCOUNTER 2021-11-28 14:26 | Outpatient (CLI) | payer MEDICAID, SELFPAY ==
--- NOTE | 2021-11-28 14:00 | XR_ITS ---
WS: [id number] SCREENING DEXA SCAN [address] CLINICAL INFORMATION: post menopausal screening COMPARISON: None. FINDINGS: The L1-L4 bone mineral density measures 1.011 g/cm2. This corresponds to a T score score of -1.4 and Z score of -0.2. Left femoral neck bone mineral density measures 0.777 g/cm2. This corresponds to a T score of -1.8 an d Z score of -0.9. Right femoral neck bone mineral density measures 0.495 g/cm2. This corresponds to a T score -4.1of an d Z score of -3.2. Mean femoral neck bone mineral density measures 0.636 g/cm2. This corresponds to a T score of -2.9 an d Z score of -2.0. XR/XR DEXA axial skeleton* [id number] IMPRESSION: Osteopenia lumbar spine. Osteoporosis in the femoral necks RIGHT greater than L EFT. Patient's FRAX calculated 10 year probability for major osteoporotic fracture i s 58.6 % and osteoporotic hip fracture is 43.8%.
== END 2021-11-28 14:27 | disposition home or self-care (01) ==
PROVIDERS: PCP Nurse Practitioner Family; Visit Provider Nurse Practitioner Family
DX: Z78.0 Asymptomatic menopausal state (principal); M81.0 Age-related osteoporosis without current pathological fracture; M85.88 Other specified disorders of bone density and structure, other site
CPT/HCPCS: 77080

== ENCOUNTER → 2021-11-29 14:29 | Outpatient (BNVA) | payer MEDICAID, SELFPAY | PROVIDERS: PCP Nurse Practitioner Family; Visit Provider Podiatrist Foot & Ankle Surgery | DX: S82.832D Other fracture of upper and lower end of left fibula, subsequent encounter for closed fracture with routine healing (principal); W01.0XXD Fall on same level from slipping, tripping and stumbling without subsequent striking against object, subsequent encounter | CPT/HCPCS: 73610; 99214 ==

== ENCOUNTER → 2021-12-13 13:13 | Outpatient (BNVA) | payer MEDICAID, SELFPAY | PROVIDERS: PCP Nurse Practitioner Family; Visit Provider Podiatrist Foot & Ankle Surgery | DX: S82.832D Other fracture of upper and lower end of left fibula, subsequent encounter for closed fracture with routine healing (principal); W01.0XXD Fall on same level from slipping, tripping and stumbling without subsequent striking against object, subsequent encounter; Z98.890 Other specified postprocedural states | CPT/HCPCS: 73610; 99213; 99214 ==

== ENCOUNTER → 2022-02-06 17:16 | Outpatient (BNVA) | payer MEDICAID, SELFPAY | PROVIDERS: PCP Nurse Practitioner Family; Visit Provider Nurse Practitioner Family | DX: J44.9 Chronic obstructive pulmonary disease, unspecified (principal); K21.9 Gastro-esophageal reflux disease without esophagitis; E78.2 Mixed hyperlipidemia; I10 Essential (primary) hypertension; R07.81 Pleurodynia; M54.50 Low back pain, unspecified; G89.29 Other chronic pain; M51.36 Other intervertebral disc degeneration, lumbar region; M54.9 Dorsalgia, unspecified; M81.0 Age-related osteoporosis without current pathological fracture; F41.9 Anxiety disorder, unspecified; Z79.899 Other long term (current) drug therapy; R19.7 Diarrhea, unspecified | CPT/HCPCS: 80053; 80061; 80307 ==

== ENCOUNTER → 2022-03-27 10:56 | Outpatient (BNVA) | payer MEDICAID, SELFPAY | PROVIDERS: PCP Nurse Practitioner Family; Visit Provider Podiatrist Foot & Ankle Surgery | DX: S82.832D Other fracture of upper and lower end of left fibula, subsequent encounter for closed fracture with routine healing (principal); W01.0XXD Fall on same level from slipping, tripping and stumbling without subsequent striking against object, subsequent encounter | CPT/HCPCS: 73610 ==

== ENCOUNTER 2022-03-27 11:42 | Outpatient (CLI) | payer MEDICAID, SELFPAY | END 2022-03-27 11:43 | disposition home or self-care (01) | LOC: SPT 11:42 | PROVIDERS: PCP Nurse Practitioner Family; Visit Provider Podiatrist Foot & Ankle Surgery | DX: Z46.89 Encounter for fitting and adjustment of other specified devices (principal); S82.832D Other fracture of upper and lower end of left fibula, subsequent encounter for closed fracture with routine healing; X58.XXXD Exposure to other specified factors, subsequent encounter | CPT/HCPCS: 97760; 99214; L1902 ==

== ENCOUNTER → 2022-05-16 10:37 | Outpatient (BNVA) | payer MEDICAID, SELFPAY | PROVIDERS: PCP Nurse Practitioner Family; Visit Provider Nurse Practitioner Family | DX: E78.2 Mixed hyperlipidemia (principal); E03.8 Other specified hypothyroidism; F32.9 Major depressive disorder, single episode, unspecified; F41.9 Anxiety disorder, unspecified; I10 Essential (primary) hypertension; E55.9 Vitamin D deficiency, unspecified; R07.81 Pleurodynia; M54.9 Dorsalgia, unspecified; G89.29 Other chronic pain; M54.50 Low back pain, unspecified; H10.9 Unspecified conjunctivitis; H04.123 Dry eye syndrome of bilateral lacrimal glands; M47.816 Spondylosis without myelopathy or radiculopathy, lumbar region; J44.9 Chronic obstructive pulmonary disease, unspecified; R29.6 Repeated falls; R53.1 Weakness; B37.9 Candidiasis, unspecified; M79.7 Fibromyalgia; M51.36 Other intervertebral disc degeneration, lumbar region | CPT/HCPCS: 80053; 80061; 82306 ==

== ENCOUNTER → 2022-06-06 08:56 | Outpatient (BNVA) | payer MEDICAID, SELFPAY | PROVIDERS: PCP Nurse Practitioner Family; Visit Provider Nurse Practitioner Family | DX: N95.2 Postmenopausal atrophic vaginitis (principal); Z20.2 Contact with and (suspected) exposure to infections with a predominantly sexual mode of transmission; A64 Unspecified sexually transmitted disease; R07.81 Pleurodynia; M54.9 Dorsalgia, unspecified; G89.29 Other chronic pain; M54.50 Low back pain, unspecified; T74.21XA Adult sexual abuse, confirmed, initial encounter; X58.XXXA Exposure to other specified factors, initial encounter | CPT/HCPCS: 87491; 87591; 87661 ==

== ENCOUNTER → 2022-06-18 10:55 | Outpatient (BNVA) | payer MEDICAID, SELFPAY | PROVIDERS: PCP Nurse Practitioner Family; Visit Provider Podiatrist Foot & Ankle Surgery | DX: S82.832D Other fracture of upper and lower end of left fibula, subsequent encounter for closed fracture with routine healing (principal); W01.0XXD Fall on same level from slipping, tripping and stumbling without subsequent striking against object, subsequent encounter | CPT/HCPCS: 73610; 99213 ==

== ENCOUNTER 2022-06-18 15:23 | Outpatient (CLI) | payer MEDICAID, SELFPAY | END 2022-06-18 15:24 | disposition home or self-care (01) | LOC: SPT 15:24 | PROVIDERS: PCP Nurse Practitioner Family; Visit Provider Podiatrist Foot & Ankle Surgery | DX: Z46.89 Encounter for fitting and adjustment of other specified devices (principal); M25.572 Pain in left ankle and joints of left foot | CPT/HCPCS: 97760; L1902 ==

== ENCOUNTER → 2022-06-19 10:44 | Outpatient (BNVA) | payer MEDICAID, SELFPAY | PROVIDERS: PCP Nurse Practitioner Family; Visit Provider Nurse Practitioner Family | DX: A64 Unspecified sexually transmitted disease (principal) | CPT/HCPCS: 87491; 87591; 87661 ==

== ENCOUNTER → 2022-07-30 10:46 | Outpatient (BNVA) | payer MEDICAID, SELFPAY | PROVIDERS: PCP Nurse Practitioner Family; Visit Provider Podiatrist Foot & Ankle Surgery | DX: S82.832D Other fracture of upper and lower end of left fibula, subsequent encounter for closed fracture with routine healing (principal); W01.0XXD Fall on same level from slipping, tripping and stumbling without subsequent striking against object, subsequent encounter | CPT/HCPCS: 73610; 99213 ==

== ENCOUNTER → 2022-08-02 11:57 | Outpatient (BNVA) | payer MEDICAID, SELFPAY | PROVIDERS: PCP Nurse Practitioner Family; Visit Provider Nurse Practitioner Family | DX: Z79.899 Other long term (current) drug therapy (principal); G89.29 Other chronic pain; M54.50 Low back pain, unspecified | CPT/HCPCS: 80053 ==

== ENCOUNTER → 2022-10-02 11:30 | Outpatient (BNVA) | payer MEDICAID, SELFPAY | PROVIDERS: PCP Nurse Practitioner Family; Visit Provider Nurse Practitioner Family | DX: R06.01 Orthopnea (principal); J06.9 Acute upper respiratory infection, unspecified; J44.9 Chronic obstructive pulmonary disease, unspecified; R05.9 Cough, unspecified; R06.02 Shortness of breath | CPT/HCPCS: 80053; 83880 ==

== ENCOUNTER → 2022-11-27 11:18 | Outpatient (BNVA) | payer MEDICAID, SELFPAY | PROVIDERS: PCP Nurse Practitioner Family; Visit Provider Nurse Practitioner Family | DX: M54.9 Dorsalgia, unspecified (principal); G89.29 Other chronic pain; M25.572 Pain in left ankle and joints of left foot; M19.90 Unspecified osteoarthritis, unspecified site; I10 Essential (primary) hypertension; M79.7 Fibromyalgia; K21.9 Gastro-esophageal reflux disease without esophagitis; E55.9 Vitamin D deficiency, unspecified; E78.2 Mixed hyperlipidemia; E03.8 Other specified hypothyroidism; Z79.899 Other long term (current) drug therapy; M54.50 Low back pain, unspecified | CPT/HCPCS: 80053; 80061; 84443 ==

== ENCOUNTER → 2022-12-25 10:15 | Outpatient (BNVA) | payer MEDICAID, SELFPAY | PROVIDERS: PCP Nurse Practitioner Family; Visit Provider Nurse Practitioner Family | DX: M54.9 Dorsalgia, unspecified (principal); G89.29 Other chronic pain; M25.572 Pain in left ankle and joints of left foot; Z79.899 Other long term (current) drug therapy; J44.9 Chronic obstructive pulmonary disease, unspecified; I10 Essential (primary) hypertension; E78.2 Mixed hyperlipidemia; R10.9 Unspecified abdominal pain; N39.0 Urinary tract infection, site not specified; J44.1 Chronic obstructive pulmonary disease with (acute) exacerbation; R05.9 Cough, unspecified; Z23 Encounter for immunization | CPT/HCPCS: 80307 ==

== ENCOUNTER → 2023-02-06 10:19 | Outpatient (BNVA) | payer MEDICAID, SELFPAY | PROVIDERS: PCP Nurse Practitioner Family; Visit Provider Nurse Practitioner Family | DX: K29.70 Gastritis, unspecified, without bleeding (principal); R19.7 Diarrhea, unspecified; R10.9 Unspecified abdominal pain; K29.00 Acute gastritis without bleeding | CPT/HCPCS: 87486; 87581; 87633 ==

== ENCOUNTER → 2023-02-27 13:07 | Outpatient (BNVA) | payer MEDICAID, SELFPAY | PROVIDERS: PCP Nurse Practitioner Family; Visit Provider Nurse Practitioner Family | DX: M54.9 Dorsalgia, unspecified (principal); G89.29 Other chronic pain; M25.572 Pain in left ankle and joints of left foot; J06.9 Acute upper respiratory infection, unspecified; R05.9 Cough, unspecified; F41.9 Anxiety disorder, unspecified; F32.9 Major depressive disorder, single episode, unspecified; I10 Essential (primary) hypertension; E78.2 Mixed hyperlipidemia; E55.9 Vitamin D deficiency, unspecified; E03.8 Other specified hypothyroidism; K21.9 Gastro-esophageal reflux disease without esophagitis; J44.9 Chronic obstructive pulmonary disease, unspecified | CPT/HCPCS: 80053; 80061; 82306; 84443 ==

== ENCOUNTER 2023-03-17 19:09 | Inpatient (IN) | payer MEDICAID, SELFPAY ==
[2023-03-17 19:11] VITALS: BP 127/69; PULSE 105; RESP 18; TEMP 36.6; O2SAT 95; BMI 22.1
--- NOTE | 2023-03-17 19:38 | ECG_ITS ---
[facility] Test Date: 2023-03-17 Pat Name: Alina Young Department: Room: Gender: Female Central Station Operator: : 1960 Requested By: Desmond Evans Order Number: [id number] Angela MD: Chivo Morton M.D. Measurements Intervals [address] Rate: 89 P: 41 TX: 110 QRS: 57 QRSD: 77 T: 53 QT: 390 QTc: 475 Interpretive Statements SINUS RHYTHM WITH SHORT TX INTERVAL Compared to ECG 11/08/2021 14:15:21 Short TX interval now present Electronically Signed On 03-18-2023 4:23:59 COMMUNITY DEVELOPMENT PLANNER by Chivo Morton M.D. [email or web address] [email or web address].[email or web address]/store/[id number]
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
[2023-03-17 20:37] LABS: Add Urine Microscopic? NO; Charge for UA Resulting for Rev
[2023-03-17 20:42] LABS: Bilirubin Urine Neg (Negative); Blood Urine Neg (Negative); Glucose Urine UA Norm (Normal); Ketones Urine Negative (Negative); Leukocyte Esterase Urine Negative (Negative); Nitrate Urine Negative (Negative); Protein Urine Neg (Negative); Specific Gravity, Urine 1.005 (1.005-1.030); Urine Appearance Clear (CLEAR); Urine Color Light yellow (Yellow); Urobilinogen Urine Neg (Negative); pH Urine 7 (5-7)
[2023-03-17 20:45] LABS: Basophils % 0.7 %; Eosinophils # 0.1 10^3/uL (0.0-0.8); Eosinophils % 0.8 %; Hematocrit 34.3 % (36-47); Lymphocytes # 2.3 10^3/uL (0.8-4.8); Lymphocytes % 37.7 %; Mean Corpuscular HGB Conc 34.1 g/dL (30-55); Mean Corpuscular Hemoglobin 39.7 pg (27-33); Mean Corpuscular Volume 116.3 fl (85-98); Mean Platelet Volume 9.2 fL (7.4-10.4); Monocytes # 0.4 10^3/uL (0.2-0.9); Monocytes % 5.9 %; Neutrophils # 3.34 10^3/uL (1.8-7.7); Neutrophils % 54.2 %; Nucleated Red Blood Cells # 0.1 /100WBC; Nucleated Red Blood Cells % 1.3 %; Platelet Count 223 10^3/cmm (157-399); Red Blood Count 2.95 10^6/uL (3.85-5.65); Red Cell Distribution Width 16.2 % (12.1-15.1); White Blood Count 6.15 10^3/uL (3.29-11.43)
[2023-03-17 20:51] LABS: Amphetamines Screen Urine Negative (Negative); Barbiturates Screen Urine Negative (Negative); Benzodiazepines Screen Urine Negative (Negative); Cocaine Screen Urine Negative (Negative); Opiate Screen Urine Positive (Negative); PCP Screen Urine Negative (Negative); THC Screen Urine Negative (Negative)
[2023-03-17] MEDS: nicotine 21 mg Patch 1 PATCH TRANSDERMA (20:53)
[2023-03-17 21:03] LABS: Alanine Aminotransferase 20 U/L (0-33); Albumin Level 3.7 g/dL (3.5-5.2); Alcohol Level 194 mg/dL (0-10); Alkaline Phosphatase 97 U/L (35-105); Aspartate Amino Transferase 27 U/L (0-32); Blood Urea Nitrogen 8 mg/dL (8-23); Calcium 9.2 mg/dL (8.5-10.5); Carbon Dioxide 17 mmol/L (22-29); Chloride 107 mmol/L (98-107); Globulin 3.2 g/dL (1.3-4.6); Glomerular Filtration Rate 162.8 mL/min (90-130); Glucose 91 mg/dL (65-115); Osmolality Calculated 290 mOsm/kg (285-295); Sodium 141 mmol/L (136-145); Thyroid Stimulating Hormone 3.33 uIU/mL (0.27-4.20); Total Bilirubin 0.4 mg/dL (0.15-1.2); Total Protein 6.9 g/dL (6.6-8.7)
[2023-03-17 21:05] VITALS: BP 107/77; PULSE 116; RESP 18; TEMP 36.4; O2SAT 93
[2023-03-17 21:06] LABS: Acetaminophen < 5.0 ug/mL (10-30); Anion Gap 20.3 (5-19); Potassium 3.3 mmol/L (3.5-5.1); Salicylate < 0.3 mg/dL (3-10)
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
[2023-03-18 06:00] VITALS: RESP 15
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
[2023-03-18] MEDS: pantoprazole DR 40 mg Tablet PO (08:30)
[2023-03-18] MEDS: levothyroxine 50 mcg Tablet PO (08:30)
[2023-03-18] MEDS: atorvastatin 40 mg Tablet 20 MG PO (08:30)
[2023-03-18] MEDS: thiamine 100 mg Tablet PO (08:30)
[2023-03-18] MEDS: amlodipine 5 mg Tablet 2.5 MG PO (08:30)
[2023-03-18] MEDS: fenofibrate 48 mg Tablet PO (08:31)
[2023-03-18] MEDS: folic acid 1 mg Tablet PO (08:31)
[2023-03-18] MEDS: multivitamin therapeutic Tablet 1 TAB PO (08:31)
[2023-03-18] MEDS: gabapentin 300 mg Capsule 600 MG PO ×3 (08:32→20:57)
[2023-03-18] MEDS: sertraline 100 mg Tablet PO (08:35)
[2023-03-18] MEDS: acetaminophen 325 mg Tablet 650 MG PO (08:36)
[2023-03-18] MEDS: nicotine 21 mg Patch 1 PATCH TRANSDERMA (08:44)
[2023-03-18] MEDS: acetaminophen-codeine 300-30mg Tablet 1 TAB PO ×3 (11:59→22:05)
--- NOTE | 2023-03-18 12:03 | PC.NURSE ---
PT REQUESTED PRN PAIN MEDICATION RATING IT A 10/10 ON A SCALE OF 0-10 WHERE 10 IS THE WORST POSSIBLE AND 0 IS NONE AT ALL. PT RECEIVED PRN ORDER FOR TYLENOL #3
[2023-03-18 14:00] VITALS: BP 114/81; PULSE 116; RESP 20; TEMP 36.7; O2SAT 93
[2023-03-18] MEDS: tizanidine 4 mg Tablet 2 MG PO (17:13)
[2023-03-18 20:14] VITALS: BP 82/55; PULSE 99; RESP 16; TEMP 36.8; O2SAT 93
[2023-03-18] MEDS: trazodone 100 mg Tablet PO (20:57)
[2023-03-19 06:00] VITALS: BP 96/68; PULSE 104; RESP 18; O2SAT 93
[2023-03-19] MEDS: gabapentin 300 mg Capsule 600 MG PO ×3 (08:25→20:31)
[2023-03-19] MEDS: fenofibrate 48 mg Tablet PO (08:25)
[2023-03-19] MEDS: acetaminophen-codeine 300-30mg Tablet 1 TAB PO ×3 (08:25→20:31)
[2023-03-19] MEDS: multivitamin therapeutic Tablet 1 TAB PO (08:25)
[2023-03-19] MEDS: amlodipine 5 mg Tablet 2.5 MG PO (08:25)
[2023-03-19] MEDS: folic acid 1 mg Tablet PO (08:25)
[2023-03-19] MEDS: tizanidine 4 mg Tablet 2 MG PO (08:26)
[2023-03-19] MEDS: sertraline 100 mg Tablet PO (08:27)
[2023-03-19] MEDS: levothyroxine 50 mcg Tablet PO (08:27)
[2023-03-19] MEDS: atorvastatin 40 mg Tablet 20 MG PO (08:27)
[2023-03-19] MEDS: pantoprazole DR 40 mg Tablet PO (08:27)
[2023-03-19] MEDS: thiamine 100 mg Tablet PO (08:27)
[2023-03-19] MEDS: albuterol 2.5 mg/3 mL Neb INHALATION (08:32)
[2023-03-19 08:33] VITALS: PULSE 110; RESP 18; O2SAT 96
[2023-03-19 08:36] VITALS: O2SAT 95
[2023-03-19 08:39] VITALS: PULSE 109
[2023-03-19] MEDS: ergocalciferol (vitamin D2) 50,000 Unit Capsule 50000 UNIT PO (08:43)
--- NOTE | 2023-03-19 11:44 | P.NPUPN_ITS ---
Subjective NPU 2 Subjective: Patient presented today reporting that she is doing okay. We discussed the fact that her friend and roommate of at least 7 years is saying that she cannot return secondary to her behaviors. She continued to downplay her history of addiction and current addictive behaviors. We discussed the risks, benefits and alternatives of a trial of Invega and she understood and agreed to proceed as is documented in this note. Mental Status Exam 2 MSE Comments: This is a well-nourished, well-developed, white female, looking older than her stated age, in hospital scrubs, with limited grooming and eye contact. Absent dentition, with facial atrophy given the time she has likely been without teeth. No abnormal movements except for mild psychomotor retardation. Mostly cooperative with exam in mild distress. Speech was normal rate and volume. Mood described as okay; affect odd. Thought process, linear. Thought content: patient denied any suicidal or homicidal ideation, some concerns or delusions noted but not reported, patient denied auditory or visual hallucinations. Attention and concentration are mostly intact, and memory was unreliable, but none were formally tested. Alert and oriented times three. Insight and judgment appear impaired. Impulse control is limited. Vitals/I&O/Wt Last Vital Signs Temp 98.2 F 03/18/23 20:14 Pulse 109 H 03/19/23 08:39 Resp 18 03/19/23 08:33 BP 96/68 03/19/23 06:00 Pulse Ox 95 03/19/23 08:36 O2 Del Method Room Air 03/19/23 08:36 Weight last 48 hrs Weight 56.699 kg Data NPU 03/17/23 20:28 03/17/23 20:28 A&P Assessment and plan (1) Anxiety and depression: (2) Suicidal ideation: (3) Alcohol intoxication: (4) Essential hypertension: (5) Chest pain: (6) Mixed hyperlipidemia: (7) Adult onset hypothyroidism: (8) Hyperglycemia: (9) Age related osteoporosis: (10) Vitamin D insufficiency: (11) Vitamin D deficiency: (12) Alcohol use disorder, severe, dependence: Plan This is a 62-year-old white female with a long history of mental health and addiction issues with significant history of alcohol related issues that she seems to be in significant denial of who presents with intoxication again as a reluctant historian when possible negative issues are question. 1.? Continue current medication. Add Invega 3 mg p.o. daily. 2.? Encourage individual, group, and milieu therapy. 3.? Continue q-15-minute checks for safety. 4.? Recommend sober living treatment at the highest level of care to which the patient is willing to commit. Involuntary Hold Information 2 96 Hour Hold: 96 Hour Involuntary Admission: No Attestations NPU 2 Medical Necessity Statement*: Inpatient hospitalization is medically necessary and the clinically appropriate intervention, at this time. We will monitor medications and make changes as indicated. Likely length of stay is 2-4 days. Coding Level of Care Code Acute Code for g Fwd Diagnoses Anxiety and depression F41.9; F32.9 Suicidal ideation R45.851 Alcohol intoxication F10.929 Essential hypertension I10 Chest pain R07.9 Mixed hyperlipidemia E78.2 Adult onset hypothyroidism E03.8 Hyperglycemia R73.9 Age related osteoporosis M81.0 Vitamin D insufficiency E55.9 Vitamin D deficiency E55.9 Alcohol use disorder, severe, dependence F10.20
[2023-03-19 14:00] VITALS: BP 92/60; PULSE 111; RESP 18; TEMP 36.6; O2SAT 96
[2023-03-19] MEDS: nicotine 2 mg Gum BUCCAL (18:25)
[2023-03-19 20:07] VITALS: BP 103/69; PULSE 85; RESP 15; TEMP 36.5; O2SAT 96
[2023-03-19] MEDS: trazodone 100 mg Tablet PO (20:31)
[2023-03-20 06:00] VITALS: RESP 18
--- NOTE | 2023-03-20 08:24 | P.NPUPN_ITS ---
Subjective NPU 2 Subjective: Patient presented today reporting that she is doing okay. She continues to complain about pain and wanting a higher dose of her medication and we continue to report that we had no plans of increasing her medication at this time. Today she reports that she actually had been given a higher dose of the medication before it had been dropped down. We discussed that the doctors that knew her made these decisions and that now the pain management was four pills a day. She continues to work with the social work team for possible discharge options that she can no longer return to the place she has lived for the last 7 years. Mental Status Exam 2 MSE Comments: This is a well-nourished, well-developed, white female, looking older than her stated age, in hospital scrubs, with limited grooming and eye contact. Absent dentition, with facial atrophy given the time she has likely been without teeth. No abnormal movements except for mild psychomotor retardation. Mostly cooperative with exam in mild distress. Speech was normal rate and volume. Mood described as okay; affect odd. Thought process, linear. Thought content: patient denied any suicidal or homicidal ideation, some concerns or delusions noted but not reported, patient denied auditory or visual hallucinations. Attention and concentration are mostly intact, and memory was unreliable, but none were formally tested. Alert and oriented times three. Insight and judgment appear impaired. Impulse control is limited. Vitals/I&O/Wt Last Vital Signs Temp 97.7 F 03/19/23 20:07 Pulse 85 03/19/23 20:07 Resp 18 03/20/23 06:00 BP 103/69 03/19/23 20:07 Pulse Ox 96 03/19/23 20:07 O2 Del Method Room Air 03/19/23 20:07 Data NPU 03/17/23 20:28 03/17/23 20:28 A&P Assessment and plan (1) Anxiety and depression: (2) Suicidal ideation: (3) Alcohol intoxication: (4) Essential hypertension: (5) Chest pain: (6) Mixed hyperlipidemia: (7) Adult onset hypothyroidism: (8) Hyperglycemia: (9) Age related osteoporosis: (10) Vitamin D insufficiency: (11) Vitamin D deficiency: (12) Alcohol use disorder, severe, dependence: Plan This is a 62-year-old white female with a long history of mental health and addiction issues with significant history of alcohol related issues that she seems to be in significant denial of who presents with intoxication again as a reluctant historian when possible negative issues are question. 1.? Continue current medication. Added Invega 3 mg p.o. daily. 2.? Encourage individual, group, and milieu therapy. 3.? Continue q-15-minute checks for safety. 4.? Recommend sober living treatment at the highest level of care to which the patient is willing to commit. Involuntary Hold Information 2 96 Hour Hold: 96 Hour Involuntary Admission: No Attestations NPU 2 Medical Necessity Statement*: Inpatient hospitalization is medically necessary and the clinically appropriate intervention, at this time. We will monitor medications and make changes as indicated. Likely length of stay is 2-4 days. Coding Level of Care Code Acute Code for g Fwd Diagnoses Anxiety and depression F41.9; F32.9 Suicidal ideation R45.851 Alcohol intoxication F10.929 Essential hypertension I10 Chest pain R07.9 Mixed hyperlipidemia E78.2 Adult onset hypothyroidism E03.8 Hyperglycemia R73.9 Age related osteoporosis M81.0 Vitamin D insufficiency E55.9 Vitamin D deficiency E55.9 Alcohol use disorder, severe, dependence F10.20
[2023-03-20] MEDS: paliperidone ER 3 mg Tablet PO (08:38)
[2023-03-20] MEDS: pantoprazole DR 40 mg Tablet PO (08:38)
[2023-03-20] MEDS: gabapentin 300 mg Capsule 600 MG PO ×3 (08:38→20:07)
[2023-03-20] MEDS: folic acid 1 mg Tablet PO (08:39)
[2023-03-20] MEDS: sertraline 100 mg Tablet PO (08:39)
[2023-03-20] MEDS: levothyroxine 50 mcg Tablet PO (08:39)
[2023-03-20] MEDS: thiamine 100 mg Tablet PO (08:39)
[2023-03-20] MEDS: amlodipine 5 mg Tablet 2.5 MG PO (08:39)
[2023-03-20] MEDS: atorvastatin 40 mg Tablet 20 MG PO (08:39)
[2023-03-20] MEDS: multivitamin therapeutic Tablet 1 TAB PO (08:39)
[2023-03-20] MEDS: acetaminophen-codeine 300-30mg Tablet 1 TAB PO ×3 (08:43→18:09)
[2023-03-20] MEDS: nicotine 21 mg Patch 1 PATCH TRANSDERMA (08:44)
[2023-03-20] MEDS: albuterol 2.5 mg/3 mL Neb INHALATION (10:45)
[2023-03-20 10:47] VITALS: PULSE 71; RESP 20; O2SAT 98
[2023-03-20 10:54] VITALS: PULSE 101
[2023-03-20] MEDS: fenofibrate 48 mg Tablet PO (11:42)
[2023-03-20 14:00] VITALS: BP 98/62; PULSE 108; RESP 16; TEMP 36.5; O2SAT 97
[2023-03-20] MEDS: trazodone 100 mg Tablet PO (20:06)
[2023-03-20 20:22] VITALS: BP 88/54; PULSE 96; RESP 16; TEMP 36.5; O2SAT 98
[2023-03-21] MEDS: acetaminophen-codeine 300-30mg Tablet 1 TAB PO ×4 (00:42→16:05)
[2023-03-21 06:00] VITALS: BP 110/79; PULSE 86; RESP 18; O2SAT 95
--- NOTE | 2023-03-21 07:40 | P.NPUPN_ITS ---
Subjective NPU 2 Subjective: Patient presented today reporting that she is doing well. She is getting a Jaci evaluation. She was very happy about the fact that [facility] reported considering her for placement, but weather may push the date back they visit. She continues to work with the social work team for discharge to [facility]. Mental Status Exam 2 MSE Comments: This is a well-nourished, well-developed, white female, looking older than her stated age, in hospital scrubs, with limited grooming and eye contact. Absent dentition, with facial atrophy given the time she has likely been without teeth. No abnormal movements except for mild psychomotor retardation. Mostly cooperative with exam in mild distress. Speech was normal rate and volume. Mood described as okay; affect odd. Thought process, linear. Thought content: patient denied any suicidal or homicidal ideation, some concerns or delusions noted but not reported, patient denied auditory or visual hallucinations. Attention and concentration are mostly intact, and memory was unreliable, but none were formally tested. Alert and oriented times three. Insight and judgment appear impaired. Impulse control is limited. Vitals/I&O/Wt Last Vital Signs Temp 97.7 F 03/20/23 20:22 Pulse 86 03/21/23 06:00 Resp 18 03/21/23 06:00 BP 110/79 03/21/23 06:00 Pulse Ox 95 03/21/23 06:00 O2 Del Method Room Air 03/21/23 06:00 Data NPU 03/17/23 20:28 03/17/23 20:28 A&P Assessment and plan (1) Anxiety and depression: (2) Suicidal ideation: (3) Alcohol intoxication: (4) Essential hypertension: (5) Chest pain: (6) Mixed hyperlipidemia: (7) Adult onset hypothyroidism: (8) Hyperglycemia: (9) Age related osteoporosis: (10) Vitamin D insufficiency: (11) Vitamin D deficiency: (12) Alcohol use disorder, severe, dependence: Plan This is a 62-year-old white female with a long history of mental health and addiction issues with significant history of alcohol related issues that she seems to be in significant denial of who presents with intoxication again as a reluctant historian when possible negative issues are question. 1.? Continue current medication. Added Invega 3 mg p.o. daily. 2.? Encourage individual, group, and milieu therapy. 3.? Continue q-15-minute checks for safety. 4.? Recommend sober living treatment at the highest level of care to which the patient is willing to commit. 5. Obtain Jaci evaluation. Involuntary Hold Information 2 96 Hour Hold: 96 Hour Involuntary Admission: No Attestations NPU 2 Medical Necessity Statement*: Inpatient hospitalization is medically necessary and the clinically appropriate intervention, at this time. We will monitor medications and make changes as indicated. Likely length of stay is 2-4 days. Coding Level of Care Code Acute Code for Chg Fwd Diagnoses Anxiety and depression F41.9; F32.9 Suicidal ideation R45.851 Alcohol intoxication F10.929 Essential hypertension I10 Chest pain R07.9 Mixed hyperlipidemia E78.2 Adult onset hypothyroidism E03.8 Hyperglycemia R73.9 Age related osteoporosis M81.0 Vitamin D insufficiency E55.9 Vitamin D deficiency E55.9 Alcohol use disorder, severe, dependence F10.20
[2023-03-21] MEDS: levothyroxine 50 mcg Tablet PO (09:53)
[2023-03-21] MEDS: fenofibrate 48 mg Tablet PO (09:53)
[2023-03-21] MEDS: multivitamin therapeutic Tablet 1 TAB PO (09:53)
[2023-03-21] MEDS: folic acid 1 mg Tablet PO (09:53)
[2023-03-21] MEDS: sertraline 100 mg Tablet PO (09:54)
[2023-03-21] MEDS: paliperidone ER 3 mg Tablet PO (09:54)
[2023-03-21] MEDS: pantoprazole DR 40 mg Tablet PO (09:54)
[2023-03-21] MEDS: atorvastatin 40 mg Tablet 20 MG PO (09:54)
[2023-03-21] MEDS: gabapentin 300 mg Capsule 600 MG PO ×3 (09:54→19:48)
[2023-03-21] MEDS: thiamine 100 mg Tablet PO (09:54)
[2023-03-21] MEDS: amlodipine 5 mg Tablet 2.5 MG PO (09:54)
[2023-03-21] MEDS: tizanidine 4 mg Tablet 2 MG PO ×2 (09:59→15:02)
[2023-03-21 14:00] VITALS: BP 104/74; PULSE 86; RESP 13; TEMP 36.6; O2SAT 99
[2023-03-21] MEDS: trazodone 100 mg Tablet PO (19:48)
[2023-03-21 21:14] VITALS: BP 108/76; PULSE 83; RESP 16; TEMP 36.6; O2SAT 93
[2023-03-22] MEDS: acetaminophen-codeine 300-30mg Tablet 1 TAB PO ×5 (00:14→22:35)
[2023-03-22 06:00] VITALS: BP 129/81; PULSE 100; RESP 16; O2SAT 96
[2023-03-22 08:36] VITALS: O2SAT 98
[2023-03-22] MEDS: pantoprazole DR 40 mg Tablet PO (09:23)
[2023-03-22] MEDS: fenofibrate 48 mg Tablet PO (09:23)
[2023-03-22] MEDS: amlodipine 5 mg Tablet 2.5 MG PO (09:23)
[2023-03-22] MEDS: gabapentin 300 mg Capsule 600 MG PO ×3 (09:23→21:01)
[2023-03-22] MEDS: multivitamin therapeutic Tablet 1 TAB PO (09:23)
[2023-03-22] MEDS: paliperidone ER 3 mg Tablet PO (09:23)
[2023-03-22] MEDS: atorvastatin 40 mg Tablet 20 MG PO (09:23)
[2023-03-22] MEDS: folic acid 1 mg Tablet PO (09:23)
[2023-03-22] MEDS: sertraline 100 mg Tablet PO (09:23)
[2023-03-22] MEDS: thiamine 100 mg Tablet PO (09:23)
[2023-03-22] MEDS: levothyroxine 50 mcg Tablet PO (09:23)
--- NOTE | 2023-03-22 10:07 | P.NPUPN_ITS ---
Subjective NPU 2 Subjective: Patient presented today reporting that she is feeling things are improving. She is really hopeful that [facility] comes soon and they agree that she can come to their facility. We continue to discuss the fact that the weather is impacting the speed of interactions with the likelihood that many charges will be closed tomorrow and so that is likely not going to be until Friday or Friday that and his house comes to interview her. Otherwise she is tolerating the medication and we discussed the possibility of increasing her Invega sometime over the next few days versus keeping it the same. Mental Status Exam 2 MSE Comments: This is a well-nourished, well-developed, white female, looking older than her stated age, in hospital scrubs, with limited grooming and eye contact. Absent dentition, with facial atrophy given the time she has likely been without teeth. No abnormal movements except for mild psychomotor retardation. Mostly cooperative with exam in mild distress. Speech was normal rate and volume. Mood described as okay; affect odd. Thought process, linear. Thought content: patient denied any suicidal or homicidal ideation, some concerns or delusions noted but not reported, patient denied auditory or visual hallucinations. Attention and concentration are mostly intact, and memory was unreliable, but none were formally tested. Alert and oriented times three. Insight and judgment appear impaired. Impulse control is limited. Vitals/I&O/Wt Last Vital Signs Temp 97.9 F 03/21/23 21:14 Pulse 100 03/22/23 06:00 Resp 16 03/22/23 06:00 BP 129/81 03/22/23 06:00 Pulse Ox 96 03/22/23 06:00 O2 Del Method Room Air 03/21/23 06:00 Data NPU 03/17/23 20:28 03/17/23 20:28 A&P Assessment and plan (1) Anxiety and depression: (2) Suicidal ideation: (3) Alcohol intoxication: (4) Essential hypertension: (5) Chest pain: (6) Mixed hyperlipidemia: (7) Adult onset hypothyroidism: (8) Hyperglycemia: (9) Age related osteoporosis: (10) Vitamin D insufficiency: (11) Vitamin D deficiency: (12) Alcohol use disorder, severe, dependence: Plan This is a 62-year-old white female with a long history of mental health and addiction issues with significant history of alcohol related issues that she seems to be in significant denial of who presents with intoxication again as a reluctant historian when possible negative issues are question. 1.? Continue current medication. Added Invega 3 mg p.o. daily. Consider increasing to 6 mg p.o. daily. 2.? Encourage individual, group, and milieu therapy. 3.? Continue q-15-minute checks for safety. 4.? Recommend sober living treatment at the highest level of care to which the patient is willing to commit. 5. Obtain Jaci evaluation. Involuntary Hold Information 2 96 Hour Hold: 96 Hour Involuntary Admission: No Attestations NPU 2 Medical Necessity Statement*: Inpatient hospitalization is medically necessary and the clinically appropriate intervention, at this time. We will monitor medications and make changes as indicated. Likely length of stay is 2-4 days. Coding Level of Care Code Acute Code for g Fwd Diagnoses Anxiety and depression F41.9; F32.9 Suicidal ideation R45.851 Alcohol intoxication F10.929 Essential hypertension I10 Chest pain R07.9 Mixed hyperlipidemia E78.2 Adult onset hypothyroidism E03.8 Hyperglycemia R73.9 Age related osteoporosis M81.0 Vitamin D insufficiency E55.9 Vitamin D deficiency E55.9 Alcohol use disorder, severe, dependence F10.20
[2023-03-22 10:10] VITALS: PULSE 102; RESP 18; O2SAT 98
[2023-03-22] MEDS: albuterol 2.5 mg/3 mL Neb INHALATION (10:10)
[2023-03-22] MEDS: nicotine 21 mg Patch 1 PATCH TRANSDERMA (10:41)
[2023-03-22 14:00] VITALS: BP 96/60; PULSE 109; RESP 13; TEMP 36.6; O2SAT 95
[2023-03-22] MEDS: trazodone 100 mg Tablet PO (21:01)
[2023-03-22 21:05] VITALS: BP 111/76; PULSE 93; RESP 16; O2SAT 92
[2023-03-23 06:00] VITALS: BP 107/74; PULSE 110; RESP 16; O2SAT 93
[2023-03-23] MEDS: acetaminophen-codeine 300-30mg Tablet 1 TAB PO ×3 (06:02→18:00)
--- NOTE | 2023-03-23 07:45 | P.NPUPN_ITS ---
Subjective NPU 2 Subjective: Patient presented today reporting that she is feeling okay and having some optimism about the possibility of acceptance at [facility]. We discussed concerns about cognitive challenges she may be facing very to alcohol use but she continues to be resistant to acknowledging the significance of alcohol use in her life. We discussed that Dr. De Paz would be here tomorrow and a conclusion of her stay and work on discharge. Mental Status Exam 2 MSE Comments: This is a well-nourished, well-developed, white female, looking older than her stated age, in hospital scrubs, with limited grooming and eye contact. Absent dentition, with facial atrophy given the time she has likely been without teeth. No abnormal movements except for mild psychomotor retardation. Mostly cooperative with exam in mild distress. Speech was normal rate and volume. Mood described as okay; affect odd. Thought process, linear. Thought content: patient denied any suicidal or homicidal ideation, some concerns or delusions noted but not reported, patient denied auditory or visual hallucinations. Attention and concentration are mostly intact, and memory was unreliable, but none were formally tested. Alert and oriented times three. Insight and judgment appear impaired. Impulse control is limited. Vitals/I&O/Wt Last Vital Signs Temp 97.7 F 03/23/23 14:00 Pulse 98 03/23/23 15:35 Resp 18 03/23/23 15:35 BP 104/72 03/23/23 14:00 Pulse Ox 97 03/23/23 15:35 O2 Del Method Room Air 03/23/23 15:35 Weight last 48 hrs Weight 54.431 kg Weight 54.091 kg Data NPU 03/17/23 20:28 03/17/23 20:28 A&P Assessment and plan (1) Anxiety and depression: (2) Suicidal ideation: (3) Alcohol intoxication: (4) Essential hypertension: (5) Chest pain: (6) Mixed hyperlipidemia: (7) Adult onset hypothyroidism: (8) Hyperglycemia: (9) Age related osteoporosis: (10) Vitamin D insufficiency: (11) Vitamin D deficiency: (12) Alcohol use disorder, severe, dependence: Plan This is a 62-year-old white female with a long history of mental health and addiction issues with significant history of alcohol related issues that she seems to be in significant denial of who presents with intoxication again as a reluctant historian when possible negative issues are question. 1.? Continue current medication. Added Invega 3 mg p.o. daily. Consider increasing to 6 mg p.o. daily. 2.? Encourage individual, group, and milieu therapy. 3.? Continue q-15-minute checks for safety. 4.? Recommend sober living treatment at the highest level of care to which the patient is willing to commit. 5. Obtain Jaci evaluation. Results reflect benefit from assisted living. Involuntary Hold Information 2 96 Hour Hold: 96 Hour Involuntary Admission: No Attestations NPU 2 Medical Necessity Statement*: Inpatient hospitalization is medically necessary and the clinically appropriate intervention, at this time. We will monitor medications and make changes as indicated. Likely length of stay is 1-3 days. Coding Level of Care Code Acute Code for g Fwd Diagnoses Anxiety and depression F41.9; F32.9 Suicidal ideation R45.851 Alcohol intoxication F10.929 Essential hypertension I10 Chest pain R07.9 Mixed hyperlipidemia E78.2 Adult onset hypothyroidism E03.8 Hyperglycemia R73.9 Age related osteoporosis M81.0 Vitamin D insufficiency E55.9 Vitamin D deficiency E55.9 Alcohol use disorder, severe, dependence F10.20
[2023-03-23] MEDS: sertraline 100 mg Tablet PO (09:18)
[2023-03-23] MEDS: gabapentin 300 mg Capsule 600 MG PO ×3 (09:18→20:16)
[2023-03-23] MEDS: atorvastatin 40 mg Tablet 20 MG PO (09:19)
[2023-03-23] MEDS: folic acid 1 mg Tablet PO (09:19)
[2023-03-23] MEDS: tizanidine 4 mg Tablet 2 MG PO (09:19)
[2023-03-23] MEDS: multivitamin therapeutic Tablet 1 TAB PO (09:19)
[2023-03-23] MEDS: amlodipine 5 mg Tablet 2.5 MG PO (09:19)
[2023-03-23] MEDS: fenofibrate 48 mg Tablet PO (09:19)
[2023-03-23] MEDS: thiamine 100 mg Tablet PO (09:19)
[2023-03-23] MEDS: pantoprazole DR 40 mg Tablet PO (09:19)
[2023-03-23] MEDS: paliperidone ER 3 mg Tablet PO (09:19)
[2023-03-23] MEDS: levothyroxine 50 mcg Tablet PO (09:19)
[2023-03-23 14:00] VITALS: BP 104/72; PULSE 101; RESP 14; TEMP 36.5; O2SAT 94
[2023-03-23] MEDS: blistex lip oint 7 gm Tube 1 APPLIC TOPICAL (14:18)
[2023-03-23 15:35] VITALS: PULSE 98; RESP 18; O2SAT 97
[2023-03-23] MEDS: albuterol 2.5 mg/3 mL Neb INHALATION (15:37)
--- NOTE | 2023-03-23 18:13 | PC.NURSE ---
Patient angry with staff because she wants to put her dinner in a brown paper bag and carry it to her room to eat. Patient was told this was not appropriate to which she stomped off to her room and refused to eat. However, shortly after, patient decided to eat in dayroom.
[2023-03-23 20:06] VITALS: RESP 16
[2023-03-23] MEDS: trazodone 100 mg Tablet PO (20:16)
[2023-03-24] MEDS: acetaminophen-codeine 300-30mg Tablet 1 TAB PO ×4 (03:31→20:27)
[2023-03-24 06:00] VITALS: BP 102/66; PULSE 106; RESP 18; O2SAT 92
--- NOTE | 2023-03-24 08:04 | PC.NURSE ---
Patient denies avh this morning, but is responding to internal stimuli this morning. This RN observed her talking in her room excessively to someone who is not there about a man she was looking for. When asked if she felt like hurting herself or anyone else she replied, not yet. She also says she is a little anxious about her interview for her placement today.
[2023-03-24] MEDS: loperamide 2 mg Capsule PO ×3 (08:08→21:32)
[2023-03-24] MEDS: paliperidone ER 3 mg Tablet PO (08:08)
[2023-03-24] MEDS: folic acid 1 mg Tablet PO (08:09)
[2023-03-24] MEDS: gabapentin 300 mg Capsule 600 MG PO ×3 (08:09→20:26)
[2023-03-24] MEDS: atorvastatin 40 mg Tablet 20 MG PO (08:09)
[2023-03-24] MEDS: levothyroxine 50 mcg Tablet PO (08:09)
[2023-03-24] MEDS: fenofibrate 48 mg Tablet PO (08:09)
[2023-03-24] MEDS: multivitamin therapeutic Tablet 1 TAB PO (08:09)
[2023-03-24] MEDS: pantoprazole DR 40 mg Tablet PO (08:09)
[2023-03-24] MEDS: sertraline 100 mg Tablet PO (08:09)
[2023-03-24] MEDS: thiamine 100 mg Tablet PO (08:09)
[2023-03-24] MEDS: amlodipine 5 mg Tablet 2.5 MG PO (08:09)
[2023-03-24] MEDS: nicotine 21 mg Patch 1 PATCH TRANSDERMA (10:04)
[2023-03-24 12:39] VITALS: PULSE 94; RESP 18; O2SAT 93
[2023-03-24 14:00] VITALS: BP 110/81; PULSE 104; RESP 15; TEMP 36.3; O2SAT 95
[2023-03-24 14:59] LABS: Add Urine Microscopic? NO; Charge for UA Resulting for Rev
[2023-03-24 15:05] LABS: Bilirubin Urine Neg (Negative); Blood Urine Neg (Negative); Glucose Urine UA Norm (Normal); Ketones Urine Negative (Negative); Leukocyte Esterase Urine Negative (Negative); Nitrate Urine Negative (Negative); Protein Urine Neg (Negative); Specific Gravity, Urine 1.015 (1.005-1.030); Urine Appearance Clear (CLEAR); Urine Color Yellow (Yellow); Urobilinogen Urine Norm (Negative); pH Urine 5 (5-7)
--- NOTE | 2023-03-24 18:01 | PC.NURSE ---
Patient has been talking nonstop for the last hour. She requested this nurse call security for her. When asked what she would like to talk to security for she replied, just because. This RN told her that security could be called when appropriate, but that they had other things they needed to do. Patient became very irritated and also said a ASSESSMENT CLINICIAN was against her because she would not let her store all of her meals in a brown paper bag in her room. Several minutes later she was beginning to talk louder in her room, so this RN asked her what she was upset about. She stated, you gave away all the food and made 3 pots of coffee today. Patient very nonsensical at this time.
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
[2023-03-24 20:12] VITALS: BP 105/75; PULSE 108; RESP 18; O2SAT 92
[2023-03-24] MEDS: hyDROXYzine 25 mg Capsule 50 MG PO (20:26)
[2023-03-24] MEDS: tizanidine 4 mg Tablet 2 MG PO (20:27)
[2023-03-24] MEDS: trazodone 100 mg Tablet PO (20:27)
--- NOTE | 2023-03-24 21:51 | PC.NURSE ---
PT STARTED OFF ASSESSMENT WITH THERE ARE THREE NURSES I WANT FIRED I'VE BEEN WATCHING THEM ALL DAY. THIS RN ENCOURAGED PT TO FOCUS ON TONIGHT AND RN WOULD HELP HER WITH HER NEEDS. PT WAS VERY RESPONSIVE. PT DENIES SI, WHEN ASKED IF SHE WAS HOMICIDAL PT STATED YES I JUST DON'T KNOW WHO ITS GOING TO BE YET, PT RATES ANXIETY 10/10, DEPRESSION 10/10 AND PAIN IN HER NECK 10/10. PT WAS GIVEN TYLENOL 3 ORDERED AND TIZANADINE 2 MG ORDERED FOR PAIN/SPASMS. PT WAS GIVEN VISTARIL 50 MG FOR ANXIETY RATED 10/10. IMODIUM WAS GIVEN ORDERED FOR REPORTED DIARRHEA. PT IS IMPULSIVE AND INTRUSIVE AT TIMES. VERY DEMANDING WITH STAFF. PT IS ENCOURAGED MULTIPLE TIMES TO ASK FOR WHAT SHE NEEDS AND STAFF WILL GET IT. PT DID EVENTUALLY CALM AND WAS RESPECTFUL TO STAFF. PT NEEDS WERE MET AND PT REQUESTS WERE ALSO MET. ALL QUESTIONS ANSWERED AND SUPPORT WAS VOICED.
[2023-03-25 06:00] VITALS: BP 82/49; PULSE 140; RESP 18; TEMP 36.8; O2SAT 98
--- NOTE | 2023-03-25 06:22 | PC.NURSE ---
VISTARIL AND TRAZODONE GIVEN LAST NIGHT. PT SLEPT ALL NIGHT APPROXIMATELY 9 HOURS. MEDIATIONS DEEMED EFFECTIVE
[2023-03-25] MEDS: thiamine 100 mg Tablet PO (08:12)
[2023-03-25] MEDS: acetaminophen-codeine 300-30mg Tablet 1 TAB PO ×3 (08:12→16:32)
[2023-03-25] MEDS: gabapentin 300 mg Capsule 600 MG PO ×3 (08:12→20:49)
[2023-03-25] MEDS: paliperidone ER 6 mg Tablet PO (08:13)
[2023-03-25] MEDS: amlodipine 5 mg Tablet 2.5 MG PO (08:13)
[2023-03-25] MEDS: sertraline 100 mg Tablet PO (08:13)
[2023-03-25] MEDS: folic acid 1 mg Tablet PO (08:13)
[2023-03-25] MEDS: pantoprazole DR 40 mg Tablet PO (08:13)
[2023-03-25] MEDS: fenofibrate 48 mg Tablet PO (08:13)
[2023-03-25] MEDS: levothyroxine 50 mcg Tablet PO (08:13)
[2023-03-25] MEDS: atorvastatin 40 mg Tablet 20 MG PO (08:13)
[2023-03-25] MEDS: multivitamin therapeutic Tablet 1 TAB PO (08:13)
[2023-03-25] MEDS: nicotine 4 mg lozenge MUCOUS MEM (08:25)
[2023-03-25] MEDS: bismuth subsalicylate 240 mL Btl 15 ML PO ×2 (09:26→15:03)
[2023-03-25 13:52] LABS: Influenza A by IFA negative (Negative); Influenza B by IFA negative (Negative)
[2023-03-25 13:53] LABS: SARS Covid-2 Antigen negative (Negative)
[2023-03-25 14:00] VITALS: BP 70/49; PULSE 61; RESP 20; TEMP 36.3; O2SAT 93
--- NOTE | 2023-03-25 15:01 | PC.NURSE ---
patient is hypotensive, BP 74/40s. Patient encouraged to increase fluid intake and to use walker while ambulating. Will continue to monitor.
--- NOTE | 2023-03-25 15:44 | PC.NURSE ---
Rechecked BP at 1540: 97/47. Patient currently denying dizziness.
--- NOTE | 2023-03-25 17:25 | W.PM.NPUPNS ---
Subjective NPU Subjective: 62-year-old white female admitted with suicidal ideation with a history of significant alcohol use for several years. The patient had reported that she was feeling better and stated that she felt that she needed to go to an assisted living facility and was agreeable to going to [facility]. She had reported no active paranoia today. She appeared more cooperative and compliant on the milieu. She had reported that she continued to feel depressed but stated that she did not feel excessively anxious regarding her oral intake and stated that she did not feel suspicious of other stealing her food today. Staff notes the patient had been able to attend groups today. She had reported some pain issues. She had reported some side effects in the past from antidepressants but stated that she was reporting no side effects from her current medication regimen. She had reported low energy and continued and endorsed low motivation. Mental Status Exam MSE Comments: This is a well-nourished, well-developed, white female, looking older than her stated age, in hospital scrubs, with limited grooming and eye contact. Absent dentition, with facial atrophy given the time she has likely been without teeth. No abnormal movements except for mild psychomotor retardation. She was cooperative with exam in mild distress. Speech was normal in rate and volume. Mood described better; affect was flat today. Thought process was linear today. Thought content: patient denied any suicidal or homicidal ideation, no overt paranoia appreciated today. She did not appear to be responding to internal stimuli. Attention and concentration are mostly intact, and memory was unreliable, but none were formally tested. Alert and oriented times three. Insight was improving and judgment remained poor. Impulse control is limited. Recent memory 3/3 registration, 1/3 after 5 minutes, 3/3 with prompting at 5 minutes. Vitals/I&O/Wt Last Vital Signs Temp 97.3 F L 03/25/23 14:00 Pulse 61 03/25/23 14:00 Resp 20 H 03/25/23 14:00 BP 70/49 03/25/23 14:00 Pulse Ox 93 03/25/23 14:00 O2 Del Method Room Air 03/25/23 06:00 Weight last 48 hrs Weight 54.431 kg Data NPU 03/17/23 20:28 03/17/23 20:28 A&P Assessment and plan (1) Anxiety and depression: (2) Suicidal ideation: (3) Alcohol intoxication: (4) Essential hypertension: (5) Chest pain: (6) Mixed hyperlipidemia: (7) Adult onset hypothyroidism: (8) Hyperglycemia: (9) Age related osteoporosis: (10) Vitamin D insufficiency: (11) Vitamin D deficiency: (12) Alcohol use disorder, severe, dependence: Plan This is a 62-year-old white female with a long history of mental health and addiction issues with significant history of alcohol abuse and depression with some paranoia as well. 1.? Continue current medication. Invega 6mg daily. Continue zoloft 100mg daily to target depression. 2.? Encourage individual, group, and milieu therapy. 3.? Continue q-15-minute checks for safety. 4.? Recommend sober living treatment at the highest level of care to which the patient is willing to commit. 5. On License Of [facility] evaluation supportive of patient requiring 24 hour supervision. [facility] may be good option for placement. Involuntary Hold Information 96 Hour Hold: 96 Hour Involuntary Admission: No Attestations NPU Medical Necessity Statement*: Inpatient hospitalization is medically necessary and the clinically appropriate intervention, at this time. We will monitor medications and make changes as indicated. Likely length of stay is 2-3 days. Coding Level of Care Code Acute Code for [facility] Fwd Diagnoses Anxiety and depression F41.9; F32.9 Suicidal ideation R45.851 Alcohol intoxication F10.929 Essential hypertension I10 Chest pain R07.9 Mixed hyperlipidemia E78.2 Adult onset hypothyroidism E03.8 Hyperglycemia R73.9 Age related osteoporosis M81.0 Vitamin D insufficiency E55.9 Vitamin D deficiency E55.9 Alcohol use disorder, severe, dependence F10.20
[2023-03-25 20:47] VITALS: BP 82/58; PULSE 84; RESP 15; TEMP 36.8; O2SAT 90
[2023-03-25] MEDS: trazodone 100 mg Tablet PO (20:49)
[2023-03-26] MEDS: acetaminophen-codeine 300-30mg Tablet 1 TAB PO ×2 (01:43→08:10)
[2023-03-26] MEDS: nicotine 4 mg lozenge MUCOUS MEM (01:47)
[2023-03-26 06:00] VITALS: BP 79/56; PULSE 81; RESP 14; TEMP 36.8; O2SAT 96
[2023-03-26] MEDS: nicotine 21 mg Patch 1 PATCH TRANSDERMA (08:08)
[2023-03-26] MEDS: thiamine 100 mg Tablet PO (08:09)
[2023-03-26] MEDS: amlodipine 5 mg Tablet 2.5 MG PO (08:09)
[2023-03-26] MEDS: folic acid 1 mg Tablet PO (08:09)
[2023-03-26] MEDS: gabapentin 300 mg Capsule 600 MG PO (08:09)
[2023-03-26] MEDS: ergocalciferol (vitamin D2) 50,000 Unit Capsule 50000 UNIT PO (08:09)
[2023-03-26] MEDS: multivitamin therapeutic Tablet 1 TAB PO (08:09)
[2023-03-26] MEDS: paliperidone ER 6 mg Tablet PO (08:10)
[2023-03-26] MEDS: levothyroxine 50 mcg Tablet PO (08:10)
[2023-03-26] MEDS: pantoprazole DR 40 mg Tablet PO (08:10)
[2023-03-26] MEDS: atorvastatin 40 mg Tablet 20 MG PO (08:10)
[2023-03-26] MEDS: sertraline 100 mg Tablet PO (08:10)
[2023-03-26] MEDS: fenofibrate 48 mg Tablet PO (08:10)
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
[2023-03-26 11:48] VITALS: BP 79/56; PULSE 81; RESP 14; TEMP 36.8; O2SAT 96
== END 2023-03-26 12:10 | disposition home or self-care (01) | DRG 881 ==
LOC: ER 19:54 → NP 21:45
PROVIDERS: Internal Medicine; Admitting Provider Psychiatry & Neurology Psychiatry; Emergency Provider Emergency Medicine; PCP Nurse Practitioner Family; Visit Provider Psychiatry & Neurology Psychiatry
DX: F32.A Depression, unspecified (principal); R45.851 Suicidal ideations; Z59.01 Sheltered homelessness; R45.850 Homicidal ideations; F41.9 Anxiety disorder, unspecified; I10 Essential (primary) hypertension; M81.0 Age-related osteoporosis without current pathological fracture; E55.9 Vitamin D deficiency, unspecified; R73.9 Hyperglycemia, unspecified; Z56.0 Unemployment, unspecified; G89.29 Other chronic pain; F17.210 Nicotine dependence, cigarettes, uncomplicated; E78.2 Mixed hyperlipidemia; E03.9 Hypothyroidism, unspecified; J44.9 Chronic obstructive pulmonary disease, unspecified; F10.229 Alcohol dependence with intoxication, unspecified; Y90.6 Blood alcohol level of 120-199 mg/100 ml; R07.9 Chest pain, unspecified
CPT/HCPCS: 80053; 80306; 80307; 81003; 84443; 85025; 87426; 87804; 93005; 94640; 94664; 97150; 97165; 97167; 99285; J7613

== ENCOUNTER → 2023-06-19 11:27 | Outpatient (BNVA) | payer MEDICAID, SELFPAY | PROVIDERS: PCP Nurse Practitioner Family; Visit Provider Nurse Practitioner Family | DX: I10 Essential (primary) hypertension (principal); E78.2 Mixed hyperlipidemia; E03.8 Other specified hypothyroidism; E55.9 Vitamin D deficiency, unspecified; F41.9 Anxiety disorder, unspecified; F32.9 Major depressive disorder, single episode, unspecified; G57.93 Unspecified mononeuropathy of bilateral lower limbs; K21.9 Gastro-esophageal reflux disease without esophagitis; G47.00 Insomnia, unspecified; M54.42 Lumbago with sciatica, left side; M54.41 Lumbago with sciatica, right side; G89.29 Other chronic pain; H53.8 Other visual disturbances | CPT/HCPCS: 80053; 80061; 82306; 84443; 85025 ==

== ENCOUNTER → 2023-11-06 11:09 | Outpatient (BNVA) | payer MEDICAID, SELFPAY | PROVIDERS: PCP Nurse Practitioner Family; Visit Provider Nurse Practitioner Family | DX: I10 Essential (primary) hypertension (principal); R30.0 Dysuria; E78.2 Mixed hyperlipidemia; K21.9 Gastro-esophageal reflux disease without esophagitis; E03.8 Other specified hypothyroidism; F41.9 Anxiety disorder, unspecified; F32.9 Major depressive disorder, single episode, unspecified | CPT/HCPCS: 80053; 80061; 81000; 84443; 85025 ==

== ENCOUNTER 2023-11-20 10:29 | Outpatient (CLI) | payer MEDICAID, SELFPAY ==
--- NOTE | 2023-11-20 10:38 | MR_ITS ---
WS: [id number] MRI LUMBAR SPINE NONCONTRAST HISTORY: DEGENERATIVE DISC DISEASE COMPARISON: 12/05/2015 TECHNIQUE: Sagittal and axial multisequence imaging is submitted. Cerebellar volume loss. Ventricles as visualized on the localizer images are dilated. Posterior occip ital lobe infarcts. Mild cervical spondylosis. Mild straightening of the normal lumbar lordosis. Mild RIGHT curvature. Mild disc space narrowing and desiccation at L4-5 and L5-S1. Conus terminates normally at L1-2 disc level. L1-L2: Mild facet joint arthritis. Very mild bilateral foraminal narrowing. L2-L3: Mild annular disc bulging with ligamentum flavum and facet arthritis. No stenosis. L3-L4: Mild annular disc bulging with osteophytic ridging, ligamentum flavum and facet arthritis. Mil d central and bilateral subarticular recess and foraminal stenosis. Mild progression since the prior exam. L4-L5: Marked annular disc bulging with severe ligamentum flavum and facet arthritis. Severe central, bilateral subarticular recess and moderate foraminal stenosis. Most significant contact on the trave rsing L5 nerve roots. L5-S1: Moderate annular disc bulging contacting the S1 nerve roots. Mild central with moderate subart icular recess encroachment. No LEFT foraminal stenosis. Moderate to severe RIGHT foraminal stenosis d ue to RIGHT foraminal disc protrusion. Degenerative changes and disc disease and stenosis have progre ssed since 2016. Paravertebral soft tissues are normal. MR/MR lumbar spine wo con* [id number] IMPRESSION: 1. L5-S1: Mild central with moderate subarticular recess encroachment on the S 1 nerve roots. Moderate to severe RIGHT foraminal stenosis to a RIGHT foraminal disc protrusion. Stenosis and disc disease at this level have progressed since 2016. 2. L4-5: Severe central, bilateral subarticular recess and moderate foraminal stenosis. Significant progression of disc contact on the traversing L5 nerve ro ots. 3. L3-4: Mild central, bilateral subarticular recess and foraminal stenosis. 4. On the localizer image there is cerebral atrophy with remote infarcts in th e occipital lobes.
== END 2023-11-20 10:30 | disposition home or self-care (01) ==
LOC: RAD 10:30
PROVIDERS: PCP Nurse Practitioner Family; Visit Provider General Practice
DX: M51.36 Other intervertebral disc degeneration, lumbar region (principal); M99.63 Osseous and subluxation stenosis of intervertebral foramina of lumbar region; M99.64 Osseous and subluxation stenosis of intervertebral foramina of sacral region; M25.78 Osteophyte, vertebrae; M47.896 Other spondylosis, lumbar region; M51.37 Other intervertebral disc degeneration, lumbosacral region
CPT/HCPCS: 72148

== ENCOUNTER → 2023-11-26 10:26 | Outpatient (BNVA) | payer MEDICAID, SELFPAY | PROVIDERS: PCP Nurse Practitioner Family; Visit Provider Nurse Practitioner Family | DX: Z12.4 Encounter for screening for malignant neoplasm of cervix (principal) | CPT/HCPCS: 87624 ==

== ENCOUNTER → 2024-07-08 13:14 | Outpatient (BNVA) | payer MEDICAID, SELFPAY | PROVIDERS: Visit Provider Nurse Practitioner Family | DX: E78.2 Mixed hyperlipidemia (principal) | CPT/HCPCS: 80053; 80061; 84443; 85025 ==

== ENCOUNTER 2024-08-20 13:39 | Emergency (ER) | payer MEDICAID, SELFPAY ==
[2024-08-20 13:40] VITALS: BP 176/102; PULSE 99; RESP 17; TEMP 36.8; O2SAT 91; BMI 24.0
--- NOTE | 2024-08-20 13:45 | XR_ITS ---
WS: [id number] Left knee, 3 views, 08/20/2024 Clinical Data: traumatic knee pain Comparison: Left knee, 09/02/2021 Findings: No fractures or dislocations are seen. The joint spaces are normal. The patella is intact. The soft tissues are unremarkable. XR/XR knee LT 3V* [id number] Impression: Negative left knee.
[2024-08-20] MEDS: HYDROcodone-acetaminophen 10-325 mg Tablet 1 TAB PO (14:16)
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
[2024-08-20 14:26] VITALS: BP 172/109; PULSE 102; O2SAT 98
== END 2024-08-20 14:45 | disposition home or self-care (01) ==
PROVIDERS: Emergency Provider Emergency Medicine
DX: G89.4 Chronic pain syndrome (principal); S89.92XA Unspecified injury of left lower leg, initial encounter; Z72.0 Tobacco use; J44.9 Chronic obstructive pulmonary disease, unspecified; E78.2 Mixed hyperlipidemia; W22.8XXA Striking against or struck by other objects, initial encounter
CPT/HCPCS: 73562; 99283; J9999

== ENCOUNTER → 2024-09-22 10:06 | Outpatient (BNVA) | payer MEDICAID, SELFPAY | PROVIDERS: Visit Provider Specialist | DX: M25.562 Pain in left knee (principal); S89.92XA Unspecified injury of left lower leg, initial encounter; X58.XXXA Exposure to other specified factors, initial encounter; Z46.89 Encounter for fitting and adjustment of other specified devices | CPT/HCPCS: 73560; 73565; 99205 ==

== ENCOUNTER 2024-10-18 14:15 | Outpatient (CLI) | payer MEDICAID, SELFPAY ==
--- NOTE | 2024-10-18 14:30 | CT_ITS ---
WS: [id number] Noncontrast CT LEFT knee TECHNIQUE: Noncontrast CT LEFT knee with coronal and sagittal reformatted images. CLINICAL INFORMATION: left knee pain COMPARISON: None. DLP: 475.[address] scans at [facility] use at least one of these dose optimization techniques: automated exposure control; mA and/or kV adjustment per patient size (includes targeted exams where dose is matched to clinical indication); or iterative reconstruction. FINDINGS: Osteopenia. Moderate tricompartment arthritis worse in the medial joint compartment. Hypertrophic patella. No significant joint effusion. Vascular calcification. Small amount of prepatellar and infrapatellar soft tissue edema. No fluid collections. Fibula head is normal. No visualized patellar fractures. Femoral condyles are intact. Sclerosis in the lateral tibial plateau. No definite visualized fractures. Osteopenia reduces sensitivity for tiny nondisplaced fractures. Fibular head appears normal. Lytic lesion in the proximal tibial shaft with surrounding sclerosis measuring approximately 1.7 x 0.9 cm. This is not included on any prior studies and is technically indeterminant. Recommend MRI without and with gadolinium CT/CT knee LT wo con* [id number] IMPRESSION: 1. Advanced osteopenia. 2. Moderate tricompartment arthritis worse in the medial joint compartment. Hy pertrophic patella. 3. No visualized acute fractures considering osteopenia. 4. Indeterminant lytic lesion in the proximal tibial shaft with surrounding sc lerosis. This is technically indeterminate and recommend further evaluation wit h MRI without and with gadolinium of the tibia. Knee can also be included to as sess for contusion or tiny nondisplaced fracture if persistent pain.
== END 2024-10-18 14:16 | disposition home or self-care (01) ==
PROVIDERS: PCP Nurse Practitioner Family; Visit Provider Specialist
DX: M17.12 Unilateral primary osteoarthritis, left knee (principal); M85.80 Other specified disorders of bone density and structure, unspecified site
CPT/HCPCS: 73700

== ENCOUNTER → 2024-11-11 08:56 | Outpatient (BNVA) | payer MEDICAID, SELFPAY | PROVIDERS: PCP Nurse Practitioner Family; Visit Provider Orthopaedic Surgery | DX: M48.061 Spinal stenosis, lumbar region without neurogenic claudication (principal); M54.2 Cervicalgia | CPT/HCPCS: 72050; 72110; 99213 ==

== ENCOUNTER → 2024-12-23 11:20 | Outpatient (BNVA) | payer MEDICAID, SELFPAY | PROVIDERS: PCP Nurse Practitioner Family; Visit Provider Nurse Practitioner Family | DX: E03.8 Other specified hypothyroidism (principal); M12.811 Other specific arthropathies, not elsewhere classified, right shoulder | CPT/HCPCS: 73030; 80053; 80061; 84443; 85025 ==

== ENCOUNTER → 2025-01-06 12:35 | Outpatient (BNVA) | payer MEDICAID, SELFPAY | PROVIDERS: PCP Nurse Practitioner Family; Visit Provider Orthopaedic Surgery | DX: M51.360 Other intervertebral disc degeneration, lumbar region with discogenic back pain only (principal); M54.2 Cervicalgia; M54.12 Radiculopathy, cervical region | CPT/HCPCS: 99213 ==

== ENCOUNTER → 2025-01-20 10:35 | Outpatient (BNVA) | payer MEDICAID, SELFPAY | PROVIDERS: PCP Nurse Practitioner Family; Referring Provider Nurse Practitioner Family; Visit Provider Nurse Practitioner Family | DX: L73.2 Hidradenitis suppurativa (principal); L72.0 Epidermal cyst; L60.8 Other nail disorders; L82.1 Other seborrheic keratosis; D22.4 Melanocytic nevi of scalp and neck; L57.0 Actinic keratosis | CPT/HCPCS: 17000; 99204 ==

== ENCOUNTER 2025-02-16 10:09 | Outpatient (CLI) | payer MEDICAID, SELFPAY ==
--- NOTE | 2025-02-16 11:00 | MR_ITS ---
WS: [id number] MRI CERVICAL SPINE NONCONTRAST TECHNIQUE: Sagittal T1, T2 and STIR imaging. Axial T2, gradient, and fiesta imaging. CLINICAL INFORMATION: neck pain COMPARISON: MRI 2012 FINDINGS: Straightening of the normal cervical lordosis. Slight anterolisthesis C4 on C5. Mild disc bulging C5-C6 and C6-C7 progressed compared to previous 2012. C2-C3: Normal. C3-C4: Moderate to advanced LEFT facet arthropathy with facet synovitis. Moderate LEFT greater than RIGHT bony foraminal narrowing. Mild central canal stenosis. C4-C5: Slight anterolisthesis. Moderate to advanced facet arthropathy. Moderate bilateral bony foraminal narrowing worse on the RIGHT. C5-C6: Mild disc bulge with endplate ridging. Moderate to severe RIGHT bony foraminal narrowing. Moderate LEFT bony foraminal narrowing. Advanced RIGHT facet arthropathy. Mild central canal stenosis. C6-C7: Mild to moderate bilateral foraminal narrowing. Spinal canal is patent. C7-T1: Normal. Visualized brain stem structures: Normal. Prevertebral soft tissues: Normal. MR/MR cervical spin wo con* [id number] IMPRESSION: 1. Slight anterolisthesis C4 on C5 new compared to 2012 2. Disc bulging at C5-C6 and C6-C7 progressed compared to previous with mild c entral canal stenosis worse at C5-6 with slight contact of the cervical cord. 3. Moderate multilevel bony foraminal narrowing LEFT C3-4, RIGHT C4-5, moderat e to severe RIGHT C5-6, and mild to moderate bilateral C6-7. 4. Cord signal is normal. 5. LEFT C3-4 advanced facet arthropathy with facet synovitis and small facet e ffusion. Mild periarticular edema. 6. Moderate to advanced facet arthropathy C4-5 and C5-6 worse on the RIGHT. Mo derate facet arthropathy C6-7. 7. Mild central canal stenosis C3-4 and C4-5.
== END 2025-02-16 10:10 | disposition home or self-care (01) ==
LOC: RAD 10:10
PROVIDERS: PCP Nurse Practitioner Family; Visit Provider Orthopaedic Surgery
DX: M43.5X2 Other recurrent vertebral dislocation, cervical region (principal); M47.892 Other spondylosis, cervical region; M50.322 Other cervical disc degeneration at C5-C6 level; M48.02 Spinal stenosis, cervical region; M50.323 Other cervical disc degeneration at C6-C7 level
CPT/HCPCS: 72141

== ENCOUNTER → 2025-03-01 14:48 | Outpatient (BNVA) | payer MEDICAID, SELFPAY | PROVIDERS: PCP Nurse Practitioner Family; Visit Provider Orthopaedic Surgery | DX: M54.12 Radiculopathy, cervical region (principal); M48.02 Spinal stenosis, cervical region; M79.601 Pain in right arm | CPT/HCPCS: 99213 ==